=== PATIENT | male | born 1960 | race Caucasian/White ===

== ENCOUNTER 2017-12-11 14:35 | Emergency (ER) | payer MEDICARE ==
[~2017-12-11] VITALS: Ht 177.8 cm; Wt 72.6 kg
[~2017-12-11 14:35] MED LIST: ALBU3IS INH; ALBU90OI INH; ALBU90OI61 INH; ASPI81CH PO; ATOR40TA PO; ATOR80 PO; BENTYL20 MG PO; Bentyl20 MG PO; CLOP75 PO; COMBIVENT RESPIM4 GM INH; Cleocin HCl300 MG PO; DAILY MULTIPLE1 EACH PO; Flomax0.4 MG PO; GABA300 PO; HYDCHL25 PO; HYDR1TAB94 PO; Hydrocodone-Ap1 EA23 PO; INSU100I6 SC; INSUASPI SC; INSULANPEN SC; Lantus100 UNIT/1 SC; Lyrica100 MG PO; Neurontin 300300 MG PO; Norco 5-325 Ta1 EACH PO; Novolog Fl100 UNIT/1 SQ; PREG100 PO; PREG50 PO; Percocet 5-3251 EACH PO; Prozac20 MG PO; Prozac40 MG PO; Quinapril HCl20 MG PO; TAMS.4ER PO; VITAMIN D32000 UNIT PO
[2017-12-11 15:10] LABS: BASOPHILS ABSOLUTE AUTO 0.06 K/mm3 (0.00-0.23); BASOPHILS PERCENT AUTO 1 % (0-2); EOSINOPHILS ABSOLUTE AUTO 0.23 K/mm3 (0.00-0.68); EOSINOPHILS PERCENT AUTO 3 % (0-6); Hematocrit 45.2 % (37.0-53.0); Hemoglobin 15.9 g/dL (13.5-17.5); IMMATURE GRAN ABSOLUTE AUTO 0.06 K/mm3 (0.00-0.10); IMMATURE GRAN PERCENT AUTO 1 % (0-1); LYMPHOCYTES ABSOLUTE AUTO 1.91 K/mm3 (0.84-5.20); LYMPHOCYTES PERCENT AUTO 22 % (21-46); MONOCYTES ABSOLUTE AUTO 0.85 K/mm3 (0.16-1.47); MONOCYTES PERCENT AUTO 10 % (4-13); Mean Corpuscular HGB 30.8 pg (26.0-34.0); Mean Corpuscular HGB Conc 35.2 g/dL (31.5-36.5); Mean Corpuscular Volume 88 fL (80-100); Mean Platelet Volume 9.4 fL (9.1-12.4); NEUTROPHILS ABSOLUTE AUTO 5.74 K/mm3 (1.96-9.15); NEUTROPHILS PERCENT AUTO 65 % (41-73); Platelet Count 190 K/mm3 (150-400); RDW Coefficient Variation 12.9 % (11.7-14.2); RDW Standard Deviation 41.5 fL (35.1-46.3); Red Blood Cell Count 5.16 M/mm3 (4.30-5.90); White Blood Cell Count 8.85 K/mm3 (4.00-11.30)
[2017-12-11 15:30] LABS: Alanine Aminotransfer (ALT/SGP 44 U/L (12-78); Albumin, Blood 3.6 g/dL (3.4-5.0); Albumin/Globulin Ratio 0.8 (0.8-1.8); Alk Phos 169 U/L (50-136); Anion Gap 0 mmol/L (6-16); Aspartate Aminotrans (AST/SGOT 27 U/L (12-37); Bilirubin, Total 0.4 mg/dL (0.1-1.0); Blood Urea Nitrogen 13 mg/dL (8-24); Bun/Creatinine Ratio 15.3 (12.0-20.0); CO2, Blood 33 mmol/L (21-32); Calcium, Blood 9.3 mg/dL (8.5-10.1); Chloride, Blood 101 mmol/L (98-108); Creatinine, Blood 0.85 mg/dL (0.60-1.20); Globulin, Blood 4.4 g/dL (2.2-4.0); Glomerular Filtration Rate >60 (60-); Glucose, Blood 294 mg/dL (70-99); Potassium, Blood 4.4 mmol/L (3.5-5.5); Sodium, Blood 134 mmol/L (136-145); Troponin I <0.015 ng/mL (0.000-0.040)
[2017-12-11] MEDS ORDERED: ALBU90OI INH (17:09)
== END 2017-12-11 17:22 | disposition home or self-care (01) ==
LOC: ER 14:35
PROVIDERS: Emergency Medicine
DX: E11.65 Type 2 diabetes mellitus with hyperglycemia (principal); J44.1 Chronic obstructive pulmonary disease with (acute) exacerbation; E11.40 Type 2 diabetes mellitus with diabetic neuropathy, unspecified; I10 Essential (primary) hypertension; I25.10 Atherosclerotic heart disease of native coronary artery without angina pectoris; F17.210 Nicotine dependence, cigarettes, uncomplicated; Z88.0 Allergy status to penicillin; Z91.041 Radiographic dye allergy status; Z79.899 Other long term (current) drug therapy; Z79.4 Long term (current) use of insulin
CPT/HCPCS: 36415; 71046; 80053; 82947; 84484; 85025; 93005; 93010; 94640; 96360; 99284; J1815; J7030

== ENCOUNTER 2019-06-30 11:27 | Observation (INO) | payer MEDICARE ==
[~2019-06-30] VITALS: Ht 177.8 cm; Wt 71.1 kg
[~2019-06-30 11:27] MED LIST changes: +Desyrel50 MG PO; +Lamictal25 MG PO; +Novolog Fl100 UNIT/1 INJ
[2019-06-30 12:11] LABS: Source, Urine Clean Catch
[2019-06-30 12:31] LABS: Ethanol (Alcohol), Blood, Med <3 mg/dL; Troponin I <0.015 ng/mL (0.000-0.040)
[2019-06-30 12:37] LABS: Bilirubin, Urine Neg (Neg); Blood, Urine Neg (Neg); Glucose Qualitative, Urine 4+ (Neg); Ketones, Urine Neg (Neg); Leukocyte Esterase, Urine Neg (Neg); Nitrite, Urine Neg (Neg); Protein, Urine Neg (Neg); Urobilinogen, Urine NORM (Normal)
[2019-06-30 12:50] LABS: Alanine Aminotransfer (ALT/SGP 33 U/L (12-78); Albumin, Blood 3.2 g/dL (3.4-5.0); Albumin/Globulin Ratio 0.7 (0.8-1.8); Alk Phos 179 U/L (50-136); Anion Gap 5 mmol/L (6-16); Aspartate Aminotrans (AST/SGOT 28 U/L (12-37); Bilirubin, Total 0.5 mg/dL (0.1-1.0); Blood Urea Nitrogen 9 mg/dL (8-24); CO2, Blood 27 mmol/L (21-32); Calcium, Blood 8.6 mg/dL (8.5-10.1); Chloride, Blood 100 mmol/L (98-108); Globulin, Blood 4.3 g/dL (2.2-4.0); Glomerular Filtration Rate >60 (60-); Glucose, Blood 473 mg/dL (70-99); Potassium, Blood 4.8 mmol/L (3.5-5.5); Sodium, Blood 132 mmol/L (136-145); Total Protein, Blood 7.5 g/dL (6.4-8.2)
[2019-06-30 12:53] LABS: U Amphetamine Screen DETECTED; U Barbituate Screen Not Detected; U Benzodiazapine Screen Not Detected; U Buprenorphine Screen Not Detected; U Cannabinoids Screen DETECTED; U Cocaine Screen Not Detected; U Methadone Screen Not Detected; U Methamphetamine Screen DETECTED; U Opiates Screen Not Detected; U Oxycodone Screen Not Detected; U Phencyclidine Screen Not Detected; U Propoxyphene Screen Not Detected
[2019-06-30 12:54] LABS: Appearance, Urine Clear (Clear); Color, Urine Yellow (P-Yellow)
[2019-06-30 13:58] LABS: BASOPHILS ABSOLUTE AUTO 0.03 K/mm3 (0.00-0.23); BASOPHILS PERCENT AUTO 1 % (0-2); EOSINOPHILS ABSOLUTE AUTO 0.15 K/mm3 (0.00-0.68); EOSINOPHILS PERCENT AUTO 2 % (0-6); Hematocrit 37.9 % (37.0-53.0); Hemoglobin 13.3 g/dL (13.5-17.5); IMMATURE GRAN ABSOLUTE AUTO 0.03 K/mm3 (0.00-0.10); IMMATURE GRAN PERCENT AUTO 1 % (0-1); LYMPHOCYTES ABSOLUTE AUTO 1.21 K/mm3 (0.84-5.20); LYMPHOCYTES PERCENT AUTO 20 % (21-46); MONOCYTES ABSOLUTE AUTO 0.97 K/mm3 (0.16-1.47); MONOCYTES PERCENT AUTO 16 % (4-13); Mean Corpuscular HGB 31.1 pg (26.0-34.0); Mean Corpuscular HGB Conc 35.1 g/dL (31.5-36.5); Mean Corpuscular Volume 89 fL (80-100); Mean Platelet Volume 9.6 fL (9.1-12.4); NEUTROPHILS PERCENT AUTO 61 % (41-73); Platelet Count 141 K/mm3 (150-400); RDW Standard Deviation 42.1 fL (35.1-46.3); Red Blood Cell Count 4.28 M/mm3 (4.30-5.90); White Blood Cell Count 6.19 K/mm3 (4.00-11.30)
--- NOTE | 2019-06-30 18:32 | NUR ---
PT IS AOX4 AND STARTED OUT IRRITABLE, BUT HAVE BEEN ABLE TO REDIRECT. PT REPORT LEG PAIN A 7 AND WAS TREATED PER EMAR. PT HAS SETTLED DOWN MORE AND WAS ABLE TO EAT DINNER. TREATED 218 CBG PER EMAR. WILL CONTINUE TO MONITOR. PT NEEDS TO BE A ONE PERSON ASSIST HE DID NOT LOOK STEADY TRANSFERING.
--- NOTE | 2019-07-01 04:49 | NUR ---
SHIFT SUMMARY- PT. IRRITABLE AND ANGRY AT THE BEGINNING OF THE SHIFT, REFUSING VITALS WELL LAB DRAW. STATED HAD NOT BEEN GIVEN ANY INFORMATION ABOUT HIS ISOLATION STATUS AND CURRENT DX'S BY THE PHYSICIAN. CHARGE NURSE ELIEL BATRES HAD A DISCUSSION WITH PT. PT. CALM AND COOPERATIVE WITH CARE T/O THE REST OF THE NIGHT. C/O TAE LEG PAIN 04/11. NOTIFIED BLOCK PAVER JOEY MASTERS REGARDING ALTERNATIVE TO TYLENOL. RECEIVED ORDERS TO GIVE SCHEDULED MEDS ONLY, WHICH INCLUDED NEURONTIN AND CONT TYLENOL PRN. SCHEDULED MEDS GIVEN PER EMAR, PT. TOLERATED WELL. PT. SLEPT WELL DURING THE NIGHT, NO APPARENT DISTRESS NOTED. DENIED ANY FURTHER NEEDS T/O THE SHIFT. IV FLUIDS INFUSING. CALL LIGHT WITHIN REACH AND SIDE RAILS UP X2. WILL CONT TO MONITOR.
[2019-07-01 06:53] LABS: BASOPHILS ABSOLUTE AUTO 0.04 K/mm3 (0.00-0.23); BASOPHILS PERCENT AUTO 1 % (0-2); EOSINOPHILS PERCENT AUTO 5 % (0-6); Hematocrit 38.5 % (37.0-53.0); Hemoglobin 13.6 g/dL (13.5-17.5); IMMATURE GRAN ABSOLUTE AUTO 0.02 K/mm3 (0.00-0.10); IMMATURE GRAN PERCENT AUTO 0 % (0-1); LYMPHOCYTES ABSOLUTE AUTO 1.16 K/mm3 (0.84-5.20); LYMPHOCYTES PERCENT AUTO 18 % (21-46); MONOCYTES ABSOLUTE AUTO 0.79 K/mm3 (0.16-1.47); MONOCYTES PERCENT AUTO 12 % (4-13); Mean Corpuscular HGB 30.9 pg (26.0-34.0); Mean Corpuscular HGB Conc 35.3 g/dL (31.5-36.5); Mean Corpuscular Volume 88 fL (80-100); Mean Platelet Volume 9.8 fL (9.1-12.4); NEUTROPHILS ABSOLUTE AUTO 4.11 K/mm3 (1.96-9.15); NEUTROPHILS PERCENT AUTO 64 % (41-73); Platelet Count 146 K/mm3 (150-400); RDW Standard Deviation 41.7 fL (35.1-46.3); White Blood Cell Count 6.42 K/mm3 (4.00-11.30)
[2019-07-01 07:19] LABS: Anion Gap 6 mmol/L (6-16); Blood Urea Nitrogen 14 mg/dL (8-24); CO2, Blood 28 mmol/L (21-32); Calcium, Blood 8.5 mg/dL (8.5-10.1); Chloride, Blood 104 mmol/L (98-108); Creatinine, Blood 0.74 mg/dL (0.60-1.20); Glomerular Filtration Rate >60 (60-); Glucose, Blood 281 mg/dL (70-99); Potassium, Blood 4.6 mmol/L (3.5-5.5); Sodium, Blood 138 mmol/L (136-145); Troponin I <0.015 ng/mL (0.000-0.040)
--- NOTE | 2019-07-01 10:38 | NUR ---
AM CARE PT BECAME ANGRY THIS AM AND WAS DEMANDING TO HAVE IV REMOVED AND TELE REMOVED. THIS RN REMOVED TELE AND THE IV PER PT REQUEST. DR. ROMERO WAS NOTIFIED OF PT'S REQUESTS. DR. ROMERO TALKED WITH PT AND TOLD THIS RN THAT SHE WOULD BE DISCHARGING HIM TODAY.
[2019-07-01] MEDS ORDERED: INSULIN LI100 UNIT/2 SC (11:20)
[2019-07-01] MEDS ORDERED: LEVFLO500 PO (11:21)
[2019-07-01] MEDS ORDERED: Nicoderm Cq1 EAC1 TOP (11:22)
[2019-07-01] MEDS ORDERED: PANT20 PO (11:22)
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
--- NOTE | 2019-07-01 14:53 | NUR ---
DISCHARGE PT DISCHARGED TO HOME. THIS RN EXPLAINED DISCHARGE INSTRUCTIONS AND MEDICAITONS TO PT AND HE REPORTS HE UNDERSTANDS. PT'S MEDICATIONS FAXED TO [facility] PER PT REQUEST. PT TRANSFERRED TO [facility] VIA WHEEL CHAIR BY [facility]. PT RECEIVED PRESCRIPTION FOR WALKER, GLUCOSE MONITOR, AND STRIPS. BELONGINGS WITH PT.
== END 2019-07-01 13:15 | disposition home or self-care (01) ==
LOC: ER 11:27 → MEDS 11:28 → ER 15:52 → MEDS 15:52
PROVIDERS: Emergency Medicine; ADMIT Internal Medicine
DX: E11.65 Type 2 diabetes mellitus with hyperglycemia (principal); E11.42 Type 2 diabetes mellitus with diabetic polyneuropathy; M54.9 Dorsalgia, unspecified; J44.9 Chronic obstructive pulmonary disease, unspecified; G89.29 Other chronic pain; M19.90 Unspecified osteoarthritis, unspecified site; I25.10 Atherosclerotic heart disease of native coronary artery without angina pectoris; F31.9 Bipolar disorder, unspecified; F17.210 Nicotine dependence, cigarettes, uncomplicated; L02.11 Cutaneous abscess of neck; R07.9 Chest pain, unspecified; R53.1 Weakness; Z79.4 Long term (current) use of insulin; Z88.0 Allergy status to penicillin; Z59.0 Homelessness; Z79.899 Other long term (current) drug therapy; Z91.041 Radiographic dye allergy status
CPT/HCPCS: 36415; 71045; 80048; 80053; 81003; 82010; 82800; 82947; 83036; 83690; 83735; 84484; 85025; 87081; 93005; 93010; 93306; 94640; 94760; 96361; 96372; 96374-59; 96375-59; 99285-25; A9270; C9113; G0378; G0480; J1650; J1815; J2405; J3010; J7030

== ENCOUNTER 2019-07-22 10:25 | Emergency (ER) | payer MEDICARE, OTHER ==
[~2019-07-22] VITALS: Ht 177.8 cm; Wt 72.6 kg
[~2019-07-22 10:25] MED LIST changes: +INSULIN LI100 UNIT/2 SC; +LEVFLO500 PO; +Nicoderm Cq1 EAC1 TOP; +PANT20 PO
[2019-07-22 11:38] LABS: BASOPHILS ABSOLUTE AUTO 0.06 K/mm3 (0.00-0.23); BASOPHILS PERCENT AUTO 1 % (0-2); EOSINOPHILS ABSOLUTE AUTO 0.18 K/mm3 (0.00-0.68); EOSINOPHILS PERCENT AUTO 2 % (0-6); Hematocrit 44.2 % (37.0-53.0); Hemoglobin 15.4 g/dL (13.5-17.5); IMMATURE GRAN ABSOLUTE AUTO 0.07 K/mm3 (0.00-0.10); IMMATURE GRAN PERCENT AUTO 1 % (0-1); LYMPHOCYTES ABSOLUTE AUTO 1.52 K/mm3 (0.84-5.20); LYMPHOCYTES PERCENT AUTO 21 % (21-46); MONOCYTES ABSOLUTE AUTO 0.55 K/mm3 (0.16-1.47); MONOCYTES PERCENT AUTO 8 % (4-13); Mean Corpuscular HGB 31.1 pg (26.0-34.0); Mean Corpuscular HGB Conc 34.8 g/dL (31.5-36.5); Mean Corpuscular Volume 89 fL (80-100); Mean Platelet Volume 9.5 fL (9.1-12.4); NEUTROPHILS ABSOLUTE AUTO 4.97 K/mm3 (1.96-9.15); NEUTROPHILS PERCENT AUTO 68 % (41-73); Platelet Count 214 K/mm3 (150-400); RDW Coefficient Variation 13.1 % (11.7-14.2); RDW Standard Deviation 42.7 fL (35.1-46.3); Red Blood Cell Count 4.95 M/mm3 (4.30-5.90); White Blood Cell Count 7.35 K/mm3 (4.00-11.30)
[2019-07-22 11:55] LABS: Alanine Aminotransfer (ALT/SGP 35 U/L (12-78); Albumin, Blood 3.4 g/dL (3.4-5.0); Albumin/Globulin Ratio 0.7 (0.8-1.8); Alk Phos 147 U/L (50-136); Anion Gap 4 mmol/L (6-16); Aspartate Aminotrans (AST/SGOT 18 U/L (12-37); Bilirubin, Total 0.7 mg/dL (0.1-1.0); Blood Urea Nitrogen 11 mg/dL (8-24); Bun/Creatinine Ratio 18.7 (12.0-20.0); CO2, Blood 33 mmol/L (21-32); Calcium, Blood 9.1 mg/dL (8.5-10.1); Chloride, Blood 95 mmol/L (98-108); Creatinine, Blood 0.59 mg/dL (0.60-1.20); Globulin, Blood 4.8 g/dL (2.2-4.0); Glomerular Filtration Rate >60 (60-); Glucose, Blood 470 mg/dL (70-99); Sodium, Blood 132 mmol/L (136-145); Total Protein, Blood 8.2 g/dL (6.4-8.2)
[2019-07-22 13:03] LABS: Source, Urine Clean Catch
[2019-07-22 13:08] LABS: Bilirubin, Urine Neg (Neg); Blood, Urine Neg (Neg); Glucose Qualitative, Urine 4+ (Neg); Ketones, Urine Neg (Neg); Leukocyte Esterase, Urine Neg (Neg); Nitrite, Urine Neg (Neg); Protein, Urine 1+ (Neg); Urobilinogen, Urine 1+ (Normal)
[2019-07-22 13:25] LABS: Appearance, Urine Clear (Clear); Color, Urine Yellow (P-Yellow)
== END 2019-07-22 14:12 | disposition home or self-care (01) ==
LOC: ER 10:25
PROVIDERS: Physician Assistant
DX: E11.65 Type 2 diabetes mellitus with hyperglycemia (principal); E11.40 Type 2 diabetes mellitus with diabetic neuropathy, unspecified; J44.9 Chronic obstructive pulmonary disease, unspecified; I25.10 Atherosclerotic heart disease of native coronary artery without angina pectoris; F31.9 Bipolar disorder, unspecified; F17.210 Nicotine dependence, cigarettes, uncomplicated; Z91.14 Patient's other noncompliance with medication regimen; Z91.041 Radiographic dye allergy status; Z88.0 Allergy status to penicillin; Z79.899 Other long term (current) drug therapy; Z79.4 Long term (current) use of insulin; Z79.51 Long term (current) use of inhaled steroids
CPT/HCPCS: 36415; 80053; 82947; 85025; 93005; 93010; 96360; 99283-25; J1815; J7030

== ENCOUNTER 2019-08-09 10:30 | Emergency (ER) | payer MEDICARE, OTHER ==
[~2019-08-09] VITALS: Ht 177.8 cm; Wt 72.1 kg
[2019-08-09 11:44] LABS: BASOPHILS ABSOLUTE AUTO 0.06 K/mm3 (0.00-0.23); BASOPHILS PERCENT AUTO 1 % (0-2); EOSINOPHILS ABSOLUTE AUTO 0.18 K/mm3 (0.00-0.68); EOSINOPHILS PERCENT AUTO 2 % (0-6); Hematocrit 43.3 % (37.0-53.0); Hemoglobin 15.3 g/dL (13.5-17.5); IMMATURE GRAN ABSOLUTE AUTO 0.07 K/mm3 (0.00-0.10); IMMATURE GRAN PERCENT AUTO 1 % (0-1); LYMPHOCYTES ABSOLUTE AUTO 1.45 K/mm3 (0.84-5.20); LYMPHOCYTES PERCENT AUTO 12 % (21-46); MONOCYTES ABSOLUTE AUTO 0.81 K/mm3 (0.16-1.47); MONOCYTES PERCENT AUTO 7 % (4-13); Mean Corpuscular HGB 29.9 pg (26.0-34.0); Mean Corpuscular HGB Conc 35.3 g/dL (31.5-36.5); Mean Corpuscular Volume 85 fL (80-100); Mean Platelet Volume 9.9 fL (9.1-12.4); NEUTROPHILS ABSOLUTE AUTO 9.67 K/mm3 (1.96-9.15); NEUTROPHILS PERCENT AUTO 79 % (41-73); Platelet Count 229 K/mm3 (150-400); RDW Coefficient Variation 12.1 % (11.7-14.2); RDW Standard Deviation 37.2 fL (35.1-46.3); Red Blood Cell Count 5.11 M/mm3 (4.30-5.90); White Blood Cell Count 12.24 K/mm3 (4.00-11.30)
[2019-08-09 11:57] LABS: Alanine Aminotransfer (ALT/SGP 36 U/L (12-78); Albumin/Globulin Ratio 0.6 (0.8-1.8); Alk Phos 101 U/L (50-136); Anion Gap 10 mmol/L (6-16); Aspartate Aminotrans (AST/SGOT 24 U/L (12-37); Blood Urea Nitrogen 15 mg/dL (8-24); Bun/Creatinine Ratio 32.6 (12.0-20.0); CO2, Blood 26 mmol/L (21-32); Calcium, Blood 9.2 mg/dL (8.5-10.1); Chloride, Blood 95 mmol/L (98-108); Creatinine, Blood 0.46 mg/dL (0.60-1.20); Globulin, Blood 5.1 g/dL (2.2-4.0); Glomerular Filtration Rate >60 (60-); Glucose, Blood 311 mg/dL (70-99); Potassium, Blood 4.3 mmol/L (3.5-5.5); Sodium, Blood 131 mmol/L (136-145); Total Protein, Blood 8.1 g/dL (6.4-8.2)
[2019-08-09 14:25] LABS: Source, Urine Clean Catch
[2019-08-09 14:30] LABS: Bilirubin, Urine Neg (Neg); Blood, Urine 1+ (Neg); Glucose Qualitative, Urine 4+ (Neg); Ketones, Urine 4+ (Neg); Leukocyte Esterase, Urine 1+ (Neg); Nitrite, Urine Neg (Neg); Protein, Urine 2+ (Neg); Urobilinogen, Urine 2+ (Normal)
[2019-08-09] MEDS ORDERED: Norco 10-325 T1 EACH PO (14:38)
[2019-08-09] MEDS ORDERED: Cleocin HCl300 MG PO (14:38)
[2019-08-09 14:39] LABS: Appearance, Urine Hazy (Clear); Bacteria Many /hpf; Color, Urine Yellow (P-Yellow); Mucus Light (0-Heavy); Squamous Epithelial Cells Rare /hpf (Few)
[2019-08-09 14:41] LABS: U Amphetamine Screen DETECTED; U Barbituate Screen Not Detected; U Benzodiazapine Screen Not Detected; U Buprenorphine Screen Not Detected; U Cannabinoids Screen DETECTED; U Cocaine Screen Not Detected; U Methadone Screen Not Detected; U Methamphetamine Screen DETECTED; U Opiates Screen Not Detected; U Oxycodone Screen Not Detected; U Phencyclidine Screen Not Detected; U Propoxyphene Screen Not Detected
== END 2019-08-09 14:53 | disposition home or self-care (01) ==
LOC: ER 10:30
PROVIDERS: Emergency Medicine
DX: L02.415 Cutaneous abscess of right lower limb (principal); E11.40 Type 2 diabetes mellitus with diabetic neuropathy, unspecified; F15.10 Other stimulant abuse, uncomplicated; I10 Essential (primary) hypertension; F17.210 Nicotine dependence, cigarettes, uncomplicated; Z59.0 Homelessness; Z91.041 Radiographic dye allergy status; Z88.0 Allergy status to penicillin
CPT/HCPCS: 10060; 36415; 71045; 80053; 81001; 83036; 83605; 85025; 87040; 87070; 87075; 87077; 87086; 87147; 87186; 87205; 96361-59; 96365-59; 96375-59; 96376-59; 99283-25; J1885; J2405; J3010; J7030

== ENCOUNTER 2019-08-13 13:45 | Inpatient (IN) | payer MEDICARE, OTHER ==
[~2019-08-13] VITALS: Ht 177.8 cm; Wt 72.1 kg
[~2019-08-13 13:45] MED LIST changes: +Norco 10-325 T1 EACH PO
[2019-08-13 14:22] LABS: BASOPHILS ABSOLUTE AUTO 0.06 K/mm3 (0.00-0.23); BASOPHILS PERCENT AUTO 1 % (0-2); EOSINOPHILS PERCENT AUTO 3 % (0-6); Hematocrit 43.3 % (37.0-53.0); Hemoglobin 14.9 g/dL (13.5-17.5); IMMATURE GRAN ABSOLUTE AUTO 0.12 K/mm3 (0.00-0.10); IMMATURE GRAN PERCENT AUTO 1 % (0-1); LYMPHOCYTES ABSOLUTE AUTO 1.16 K/mm3 (0.84-5.20); LYMPHOCYTES PERCENT AUTO 13 % (21-46); MONOCYTES ABSOLUTE AUTO 0.81 K/mm3 (0.16-1.47); MONOCYTES PERCENT AUTO 9 % (4-13); Mean Corpuscular HGB 30.3 pg (26.0-34.0); Mean Corpuscular HGB Conc 34.4 g/dL (31.5-36.5); Mean Platelet Volume 9.6 fL (9.1-12.4); NEUTROPHILS ABSOLUTE AUTO 6.61 K/mm3 (1.96-9.15); NEUTROPHILS PERCENT AUTO 73 % (41-73); Platelet Count 223 K/mm3 (150-400); RDW Coefficient Variation 12.7 % (11.7-14.2); RDW Standard Deviation 41.2 fL (35.1-46.3); Red Blood Cell Count 4.92 M/mm3 (4.30-5.90); White Blood Cell Count 9.06 K/mm3 (4.00-11.30)
[2019-08-13 14:26] LABS: Mean Corpuscular Volume 88 fL (80-100)
[2019-08-13 14:32] LABS: Alanine Aminotransfer (ALT/SGP 38 U/L (12-78); Albumin, Blood 3.1 g/dL (3.4-5.0); Albumin/Globulin Ratio 0.7 (0.8-1.8); Alk Phos 132 U/L (50-136); Anion Gap 6 mmol/L (6-16); Aspartate Aminotrans (AST/SGOT 24 U/L (12-37); Bilirubin, Total 0.4 mg/dL (0.1-1.0); Blood Urea Nitrogen 10 mg/dL (8-24); Bun/Creatinine Ratio 20.2 (12.0-20.0); CO2, Blood 28 mmol/L (21-32); Calcium, Blood 9.1 mg/dL (8.5-10.1); Chloride, Blood 98 mmol/L (98-108); Creatinine, Blood 0.49 mg/dL (0.60-1.20); Globulin, Blood 4.7 g/dL (2.2-4.0); Glomerular Filtration Rate >60 (60-); Glucose, Blood 555 mg/dL (70-99); Potassium, Blood 4.2 mmol/L (3.5-5.5); Sodium, Blood 132 mmol/L (136-145); Total Protein, Blood 7.8 g/dL (6.4-8.2)
--- NOTE | 2019-08-13 18:38 | NUR ---
ADMIT NOTE PT TRANSFERED FROM ER BY SHIMA. PT DEMANDED SHOWER PRIOR TO FLUIDS STARTED. DR UPDATED ABOUT LACTIC ACID INCREASED, NOT CHANGE IN ORDERS AT THIS TIME. INSTRUCTED PT TO CALL FOR ASSISTANCE WHEN UP. NO COMPLAINTS AT THIS TIME.
--- NOTE | 2019-08-13 18:58 | NUR ---
HIGH BLOOD GLUCOSE PT'S BLOOD SUGAR IS OVER 400. THIS RN TALKED WITH DR. PARSONS AND NOTIFIED HIM THAT PT WILL RECEIVE 12 UNITS OF INSULIN DUE TO NOT RECEIVING INSULIN IN ED AND WILL ALSO RECEIVE 10 UNITS OF LANTUS. NO NEW ORDERS AT THIS TIME. THIS RN FAXED A PHARMACY REQUEST FOR THE INSULIN PENS. WILL CONTINUE TO MONITOR. CALL LIGHT IN REACH.
--- NOTE | 2019-08-14 06:29 | NUR ---
SHIFT SUMMARY AOX4. VSS. CBG @SHIFT CHANGE WAS 423, DAY NURSE NOTIFIED DR PARSONS. CBG @HS 288, NO COVERAGE PROVIDED SINCE NO ORDERS FOR COVERAGE & PT RECIEVED COVERAGE @SHIFT CHANGE FROM DAY SHIFT RN. I&D WOUND ON RT UPPER THIGH IS WARM TO TOUCH, ANGRY RED, SWOLLEN, PAINFUL, FOUL ODOR & HAS SMALL AMOUNT RED/SEROSANGUINOUS DRAINAGE. DRESSING WAS CHANGE & PIC TAKEN 08/13/19. REPORTS PAIN 5-8/10 IN RT THIGH, MEDICATED 2X W/OXYCODONE. DENIES DYSPNEA OR N/V. LUNGS SOUND WHEEZY T/O, ON RA WITH E/U RESPIRATIONS. TELE IN PLACE, RUNNING @NSR W/HR 87. LR RUNNING 125ML/HR. 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 PT HAS SCABS/REDDENNED AREA ON BACK OF NECK & BILAT WRISTS, STATES HE THOUGHT "THEY WERE SPIDER BITES" BUT WAS TOLD THEY ARE R/T HIS DM. CALL LIGHT IN REACH & I WILL CONTINUE TO MONITOR UNTIL DAY SHIFT RN ASSUMES CARE.
--- NOTE | 2019-08-14 16:30 | NUR ---
SHIFT SUMMARY L WOUND CLEANED & REDRESSED THIS SHIFT. PT MEDICATED FOR PAIN 1 TIME THIS SHIFT SO FAR. DENIES N/V. PT IND IN ROOM. DENIES NEEDS AT THIS TIME. NO OTHER CHANGES IN ASSESSMENT AT THIS TIME. VSS. WILL CONTINUE TO MONITOR UNTIL TURNOVER IS COMPLETE.
--- NOTE | 2019-08-15 04:01 | NUR ---
SHIFT SUMMARY PATIENT HAD NO ACUTE CHANGES OBSERVED. AXOX 4 AND INDEPENDENT IN THE ROOM. VSS/AFEBRILE. DENIES PAIN, SOB, AND N/V. PIV REMAINS INTACT. PARK ACTIVITIES COORDINATOR REPORTS NSR 79. WOUND DRESSING CHANGED ON DAY SHIFT. IV ABX INFUSED. COOPERATIVE WITH CARE. CALL LIGHT IN REACH. BED IN LOWEST POSITION. WILL CONTINUE TO MONITOR UNTIL DAY SHIFT NURSE ASSUMES CARE.
--- NOTE | 2019-08-15 05:26 | NUR ---
OXYCODONE 5 MG GIVEN FOR R UPPER THIGH PAIN PER EMAR. SCHEDULE VANCO INFUSING. CALL LIGHT IN REACH.
[2019-08-15 05:33] LABS: Vancomycin, Trough 7.8 ug/mL (5.0-10.0)
--- NOTE | 2019-08-15 18:33 | NUR ---
HIFT SUMMARY PATIENT IS ALERT AND ORIENTED INDEPENDENT. HE IS EASILY AGITATED AND CURRENTLY IS SETTLED IN HIS ROOM. HE WAS UNHAPPY WITH HIS DINNER. HE WOULD LIKE A DIETITIAN CONSULT. HE DOES NOT LIKE HIS CURRENT DIET, A MECHANICAL SOFT. PATIENT IS VERY CONCERNED ABOUT THE RASH ON THE BACK OF HIS NECK BLEEDING BUT WILL NOT STOP SCRATCHING IT.
--- NOTE | 2019-08-15 22:40 | NUR ---
PATIENT AGITATED BEFORE ASSESSMENT REPORTING HE WANTS TO SLEEP AND IS INTERUPTED. PATIENT EDUCATED ON WHY COUNTERINTELLIGENCE/HUMINT SPECIALIST'S, RN, AND STAFF COME INTO HIS ROOM FOR MEDICAL INTERVENTIONS, ASSESSMENTS, AND DAILY ADL'S. HE REPORTS HE WILL GO BACK TO SLEEP UNTIL MIDNIGHT ABXS. CONTACT PRECAUTIONS. WILL CONTINUE TO MONITOR.
--- NOTE | 2019-08-16 03:41 | NUR ---
SHIFT SUMMARY PATIENT HAD NO ACUTE CHANGES OBSERVED. WAS AGITATED AT SHIFT CHANGE AND COOPERATIVE OF CARE BY MIDNIGHT. AXOX 4 AND INDEPENDENT. PIV INTACT. IV ABX INFUSED. CBG 299. BUILDING SERVICES SUPERVISOR REPORTS NSR 80. VSS/AFEBRILE. REPORTED RIGHT LEG THIGH PAIN AND OXYCODONE 5 MG GIVEN PER EMAR. PATIENT ABLE TO SLEEP. CALL LIGHT IN REACH. BED IN LOWEST POSITION. WILL CONTINUE TO MONITOR UNTIL DAY SHIFT NURSE ASSUMES CARE.
[2019-08-16 07:16] LABS: Vancomycin, Trough 11.3 ug/mL (5.0-10.0)
[2019-08-16 08:39] LABS: BASOPHILS ABSOLUTE AUTO 0.06 K/mm3 (0.00-0.23); BASOPHILS PERCENT AUTO 1 % (0-2); EOSINOPHILS ABSOLUTE AUTO 0.26 K/mm3 (0.00-0.68); EOSINOPHILS PERCENT AUTO 4 % (0-6); Hematocrit 45.8 % (37.0-53.0); Hemoglobin 15.8 g/dL (13.5-17.5); IMMATURE GRAN ABSOLUTE AUTO 0.07 K/mm3 (0.00-0.10); IMMATURE GRAN PERCENT AUTO 1 % (0-1); LYMPHOCYTES ABSOLUTE AUTO 1.28 K/mm3 (0.84-5.20); LYMPHOCYTES PERCENT AUTO 21 % (21-46); MONOCYTES ABSOLUTE AUTO 0.69 K/mm3 (0.16-1.47); MONOCYTES PERCENT AUTO 11 % (4-13); Mean Corpuscular HGB 30.4 pg (26.0-34.0); Mean Corpuscular HGB Conc 34.5 g/dL (31.5-36.5); Mean Corpuscular Volume 88 fL (80-100); Mean Platelet Volume 9.2 fL (9.1-12.4); NEUTROPHILS ABSOLUTE AUTO 3.88 K/mm3 (1.96-9.15); NEUTROPHILS PERCENT AUTO 62 % (41-73); Platelet Count 163 K/mm3 (150-400); RDW Coefficient Variation 12.6 % (11.7-14.2); RDW Standard Deviation 40.7 fL (35.1-46.3); Red Blood Cell Count 5.19 M/mm3 (4.30-5.90); White Blood Cell Count 6.24 K/mm3 (4.00-11.30)
[2019-08-16 08:58] LABS: Anion Gap 4 mmol/L (6-16); Blood Urea Nitrogen 12 mg/dL (8-24); Bun/Creatinine Ratio 23.5 (12.0-20.0); CO2, Blood 29 mmol/L (21-32); Chloride, Blood 97 mmol/L (98-108); Creatinine, Blood 0.51 mg/dL (0.60-1.20); Glomerular Filtration Rate >60 (60-); Glucose, Blood 249 mg/dL (70-99); Phosphorus, Blood 3.5 mg/dL (2.5-4.9); Potassium, Blood 4.1 mmol/L (3.5-5.5); Sodium, Blood 130 mmol/L (136-145)
--- NOTE | 2019-08-16 12:17 | NUR ---
ALERT. ORIENTED. HAS CONSULT FOR PODIATRY AND ORTHO PENDING. INDEPENDENT IN ROOM. UNLABORED RESPIRATIONS.C/O BURNING SENSATION TO RT HIP WHICH IS NEW AND STARTED LAST NIGHT. PAIN MEDS HAVE HELPED. OINTMENT AND LONG BANDAGE TO BACK OF NECK HAS HELPED TO DECREASE ITCHING. BED IN LOW POSITION. ABLE TO MAKE NEEDS KNOWN. WCTM.
--- NOTE | 2019-08-16 16:37 | NUR ---
PATIENT C/O LUQ PAIN JUST BELOW RIBS, WHICH HE SAID HE ALSO HAD YESTERDAY AND FELT BETTER AFTER GOING TO BATHROOM. STS HAS HAD SMALL HARD STOOLS. ADVISED. MEDS ORDERED.
--- NOTE | 2019-08-16 17:42 | NUR ---
NOTIFIED THAT PATIENT HAS BURNING PAIN RT THIGH. PAIN MEDS HELP FOR ABOUT 3 HOURS. MY FIRST DAY HAVING PATIENT, BUT ABSCESS LOOKS WORSE THAN ADMIT PICS. MD TO CHANGE MEDS.
--- NOTE | 2019-08-16 18:38 | NUR ---
ALERT. ORIENTED. WALKED IN HALLWAY W/WALKER, STEADY GAIT.AWARE NPO AFTER MIDNITE FOR PROCEDURE EARLY AFTERNOON TOMORROW. PAIN MEDS ADJUSTED. EXCELLENT APPETITE. UNLABORED RESPIRATIONS. ABLE TO MAKE NEEDS KNOWN.IV PATENT. WCTM
--- NOTE | 2019-08-16 19:54 | NUR ---
PATIENT AGITATED AT SHIFT CHANGE DEMANDING TO HAVE FOOD. PATIENT REMINDED HIS BLOOD GLUCOSE READING WILL BE TAKEN NEEDED FIRST. LAST CBG 342. PATIENT WNET FROM HIS DOOR WAY BACK INTO ROOM. WILL CONTINUE TO MONITOR.
--- NOTE | 2019-08-16 21:39 | NUR ---
PATIENT BACK TO COOPERATIVE WITH CARE. CALL LIGHT IN REACH.
--- NOTE | 2019-08-17 03:38 | NUR ---
ASSUMED CARE OF PATIENT. PT. AWAKE AND WATCHING TV IN BED. NO APPARENT DISTRESS NOTED. DENIES ANY NEEDS AT THIS TIME. CALL LIGHT WITHIN REACH, SIDE RAILS UP X2, AND BED IN LOW POSITION. WILL CONT TO MONITOR.
[2019-08-17 05:57] LABS: Anion Gap 4 mmol/L (6-16); Blood Urea Nitrogen 14 mg/dL (8-24); Bun/Creatinine Ratio 25.7 (12.0-20.0); CO2, Blood 31 mmol/L (21-32); Calcium, Blood 8.4 mg/dL (8.5-10.1); Chloride, Blood 99 mmol/L (98-108); Creatinine, Blood 0.55 mg/dL (0.60-1.20); Glomerular Filtration Rate >60 (60-); Glucose, Blood 313 mg/dL (70-99); Potassium, Blood 4.4 mmol/L (3.5-5.5); Sodium, Blood 134 mmol/L (136-145)
--- NOTE | 2019-08-17 13:16 | NUR ---
PT TRANSPORTED TO [facility]. AGREES WITH PLANNED SURGERY.
--- NOTE | 2019-08-17 13:23 | NUR ---
LUNG SOUNDS CLEAR.
--- NOTE | 2019-08-17 13:50 | NUR ---
PT C/O FEELING EXTREMELY HOT AND NAUSEA. PT VOMITING, SCANT AMOUT OF VOMIT PRODUCED. DR. SANFORD AWARE, MEDS ORDERED.
--- NOTE | 2019-08-17 14:15 | NUR ---
PT STATES HE IS FEELING BETTER.
--- NOTE | 2019-08-17 14:21 | NUR ---
08/17/19 1421 Cam Gaspar ON SCHEDULED ANTIBIOTICS
--- NOTE | 2019-08-17 19:46 | NUR ---
SHIFT SUMMARY PT UPSET @ START OF SHIFT OF NPO STATUS WHEN SURG WAS NOT UNITIL AFTERNOON, DR RUSSO SAW PT & GAVE V/O FOR CLEARS UNTIL 10AM, PT C/O UNCONTROLLED PAIN T/O SHIFT, PT TO PROCEDURE @ 1300, BACK TO ROOM @ 1630 REQ FOOD. MED FOR PAIN, PT FELL ASLEEP AND CORD ON WOUND VAC BECAME KINKED AND BLOOD COLLECTED UNDER DRESSING, STRAIGHTENED CORD & SEMICONDUCTOR WAFERS ETCHER STRIPPER ASSESSED, PT AGAIN FELL ASLEEP AND CORD BECAME KINKED AGAIN, STRAIGHTENED TUBING AGAIN & TAPED TO PTS LEG, SPEECH LANG PATH THERAPIST ASSESSED. DURING CHANGE OF SHIFT DRESSING BEGAN TO LEAK AND DR RECINOS WAS CALLED @ 1930 AND GAVE OK TO REMOVE VAC & REPLACE DRESSING. RT ENTERED ROOM AND PT WAS DEMANDING HER TO CALL RAPID RESPONSE WHILE SUPPLIES WERE BEING GATHERED TO CHANGE DRESSING. REPORT GIVEN TO NOC RN & DRESSING CHANGE IS BEING COMPLETED AT THIS TIME.
--- NOTE | 2019-08-17 21:06 | NUR ---
PT with homelessness and MRSA infection rt thigh wound had I & D earlier today and had wound vac placed after incision and drainage rt thigh wound. At shift change wound vac dressing leaking and day RN Ginger called DR Pineda who had placed wound vac and he OKS removal and replacement of wound vac or pressure dressing. 2 RNS changed wound vac and did get suction and some red rserosang drainage but after about 1/2 hour wound vac alarm malfunction. PT had reported 700 ml blood loss in OR and more with dressing change. Will remove wound vac and replace with pressure dressing as ordered by DR Pineda. Alon RN assisted with wound care. Post op issues with wound vac had occured in PACU per PT and day RN had assessed several times and had several others assess. Will continue as planned and call MD again if further orders needed
--- NOTE | 2019-08-17 22:52 | NUR ---
PREVIOUS WOUND VAC DRESSING HAD BLED THROUGH AND WOUND VAC UNABLE TO SUCTION PROPERLY. DRESSING AND FOAM REPLACED. WOUND VAC TURNED ON AND WAS ABLE TO SUCTION PROPERLY FOR APPROX 5 MINUTES. AT THAT TIME WOUND VAC BECAME CLOGGED AGAIN AN UNABLE TO SUCTION. BLOOD WAS POOLING AND BUILDING UP UNDER/AROUND THE WOUND VAC DRESSING. IT WAS THEN REPLACED WITH A WET TO DRY PRESSURE DRESSING.
--- NOTE | 2019-08-17 22:57 | NUR ---
DR Preethi Caceres called exhange on continued bleeding that soaked dressing within 1 hour of placing. Blood pooled under PT and he describes feeling weak. He is not up out of bed. PT describes feeling pulsation with heartbeat. Had I & D today and continues to lose blood out rt thigh wound. With dressing changes continues to bleed steady stream and has required removal of wound vac that was placed in OR and removal of replacement wound vac with continued bleeding used approx 8 packs of sponges during that dressing change then more bleeding during subsequent removal and [address] Await [address] Caceres return call. traveling missionary aware and procedure and traveling missionary have assisted with postop bleeding.
--- NOTE | 2019-08-18 01:28 | NUR ---
DR Marx hospitalist called to report PT continuing bleeding saturationg dressing in less than [address] ordered CBC stat and do coagulation studies. PT has stable vital signs good output and oral intake. PT has hx of HEPC and said he has liver problems with black spot on liver per PT report. Called lab to get stat CBC and other AM labs. DR Marx to recieve lab results. Reinforced RT thigh dressingand applied pressure wrap.
--- NOTE | 2019-08-18 01:30 | NUR ---
0115 DRESSING TO R UPPER THIGH HAD BLED THROUGH APPROX 200ML BLOOD. REINFORCED DRESSING WITH ADDITOINAL ABSORBANT GAUZE AND USED MICHAEL WRAPS TO APPLY PRESSURE FROM JUST ABOVE R KNEE TO WAIST. BLEEDING APPEARS TO BE CONTROLLED. BOTH PRIMARY NURSE AND CHARGE NURSE HAVE BEEN INFORMED OF THIS.
[2019-08-18 01:46] LABS: BASOPHILS ABSOLUTE AUTO 0.06 K/mm3 (0.00-0.23); BASOPHILS PERCENT AUTO 1 % (0-2); EOSINOPHILS ABSOLUTE AUTO 0.33 K/mm3 (0.00-0.68); EOSINOPHILS PERCENT AUTO 4 % (0-6); Hematocrit 35.6 % (37.0-53.0); Hemoglobin 12.2 g/dL (13.5-17.5); IMMATURE GRAN PERCENT AUTO 1 % (0-1); LYMPHOCYTES PERCENT AUTO 22 % (21-46); MONOCYTES ABSOLUTE AUTO 0.66 K/mm3 (0.16-1.47); MONOCYTES PERCENT AUTO 8 % (4-13); Mean Corpuscular HGB 30.7 pg (26.0-34.0); Mean Corpuscular HGB Conc 34.3 g/dL (31.5-36.5); Mean Corpuscular Volume 90 fL (80-100); Mean Platelet Volume 9.5 fL (9.1-12.4); NEUTROPHILS ABSOLUTE AUTO 5.21 K/mm3 (1.96-9.15); NEUTROPHILS PERCENT AUTO 64 % (41-73); Platelet Count 169 K/mm3 (150-400); RDW Coefficient Variation 12.9 % (11.7-14.2); RDW Standard Deviation 42.5 fL (35.1-46.3); Red Blood Cell Count 3.97 M/mm3 (4.30-5.90); White Blood Cell Count 8.16 K/mm3 (4.00-11.30)
[2019-08-18 02:05] LABS: International Normalized Ratio 1.06; Prothrombin Time Results 11.2 Sec (9.7-11.5)
--- NOTE | 2019-08-18 03:31 | NUR ---
DR Arnold called and updated on lab values , continued oozing of blood despite pressure dressing. coagulation studies unremarkable. H & H and vitals slightly lower. Will recheck CBC at 0800. PT has been on bedrest due to I & D RT thigh.
--- NOTE | 2019-08-18 06:03 | NUR ---
DR PEREYRA up to room to see PT due to continued bleeding from I & D site rt thigh. PT continues to ooze blood decpite pressure to area from yonis wrap. Consistantly has fresh drainage from RT thigh despite bedrest. PT did get up at bedside and go to bathroom. Said he wants to go for a walk. DR pereyra says PT not to leave room due to active bleeding. Current MRSA and Hep C, Continues in contact isolation. PT very needy time spent with PT yenyen as soon as staff leaves room he calls for something else. Medicated for pain multiple times with helpful effect.
--- NOTE | 2019-08-18 07:34 | NUR ---
PT verbally abusive attention seeking. Abusive to primary RN threatening. Makes accusitory statements. Medicated for pain, had Hospitalist See PT due to continued RT thigh postop bleeding. Demanding and demeaning attitude. Hours spent in cares with this PT multiple staff members. At least 4 hours 1 to 1 or 2 to 1. AM CBC pending. PT up in bedside chair for several hours this AM after he had a BM in bathroom.
[2019-08-18 08:32] LABS: BASOPHILS ABSOLUTE AUTO 0.06 K/mm3 (0.00-0.23); BASOPHILS PERCENT AUTO 1 % (0-2); EOSINOPHILS ABSOLUTE AUTO 0.33 K/mm3 (0.00-0.68); EOSINOPHILS PERCENT AUTO 4 % (0-6); Hematocrit 35.5 % (37.0-53.0); Hemoglobin 12.2 g/dL (13.5-17.5); IMMATURE GRAN PERCENT AUTO 1 % (0-1); LYMPHOCYTES ABSOLUTE AUTO 1.33 K/mm3 (0.84-5.20); LYMPHOCYTES PERCENT AUTO 15 % (21-46); MONOCYTES ABSOLUTE AUTO 0.71 K/mm3 (0.16-1.47); MONOCYTES PERCENT AUTO 8 % (4-13); Mean Corpuscular HGB 30.7 pg (26.0-34.0); Mean Corpuscular HGB Conc 34.4 g/dL (31.5-36.5); Mean Corpuscular Volume 89 fL (80-100); NEUTROPHILS ABSOLUTE AUTO 6.17 K/mm3 (1.96-9.15); NEUTROPHILS PERCENT AUTO 71 % (41-73); Platelet Count 156 K/mm3 (150-400); RDW Coefficient Variation 12.9 % (11.7-14.2); RDW Standard Deviation 42.2 fL (35.1-46.3); Red Blood Cell Count 3.98 M/mm3 (4.30-5.90)
[2019-08-18 09:00] LABS: Albumin, Blood 2.6 g/dL (3.4-5.0); Anion Gap 5 mmol/L (6-16); Blood Urea Nitrogen 18 mg/dL (8-24); CO2, Blood 28 mmol/L (21-32); Calcium, Blood 8.6 mg/dL (8.5-10.1); Chloride, Blood 99 mmol/L (98-108); Creatinine, Blood 0.56 mg/dL (0.60-1.20); Glomerular Filtration Rate >60 (60-); Glucose, Blood 321 mg/dL (70-99); Phosphorus, Blood 3.9 mg/dL (2.5-4.9); Potassium, Blood 4.3 mmol/L (3.5-5.5); Sodium, Blood 132 mmol/L (136-145)
--- NOTE | 2019-08-18 17:31 | NUR ---
HE HAS BEEN COOPERATIVE AND RESPECTFUL TO STAFF TODAY. [facility] INTERVIEWED HIM THIS AFTERNOON. ID CONSULT CALLED. I REINFORCED HIS RT HIP DRESSING EARLY THIS AM WITH 1 ABD AND MORE MICHAEL. THIS EVENING THAT ABD AND 2 NEAR IT WERE SATURATED WITH BLOOD. THEY WERE REMOVED BUT NOT DOWN TO THE WOUND.1 OR 2 ABD'S LEFT DIRECTLY ON SKIN. I PUT 1 MORE ABD A KERLIX AND A NEW MICHAEL WRAP ON. HE THEN PUT ON DISPOSABLE UNDERWEAR AND PJ BOTTOMS. HE MOVES AROUND IN THE ROOM A LITTLE MORE THAN I'D LIKE HIM TO BUT HE GETS NERVOUS. HE HAS BEEN MEDICATED WITH 1 MG OF IV DILAUDID TODAY AND 10 MG OF OXYCODONE TODAY, BOTH BY HIS REQUEST. 1ST 2 CBG'S IN THE 300'S. THE DINNER CBG IN THE 200'S. CONTACT ISOLATION CONTINUES FOR MRSA IN THE WOUND.
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
[2019-08-19 07:39] LABS: Vancomycin, Trough 15.3 ug/mL (5.0-10.0)
--- NOTE | 2019-08-19 17:12 | NUR ---
SHIFT SUMMARY PT AXO X4 THOUGH HAS MOMENTS OF EMOTIONAL IRRITABILITY AND GRANDIOSITY. NEW IV PLACED THIS SHIFT. CHARGE NURSE IN AT 1000 TO START A NEW IV, PT IRRITABLE AND REFUSED IV START AT THAT TIME. THIS NURSE IN AT 1130, PT AGREED AND SPECIFIED EXACTLY THE PLACE HE WANTED THE IV STARTED. VANCO INFUSED AT 1130, PHARMACY AWARE AND TIMING UPDATED. PT AMBULATED AROUND THE UNIT X3-4, THOUGH ON THE LAST LAP, PT BEGAN FEELING "DIZZY." NURSE FREDDY WAYNE, RN TOOK PT BACK TO ROOM, S. DR HALE NOTIFIED AND IN ROOM AT 1710. CBG ORDERED AND BEING DRAWN AT THIS TIME. TELE ORDERED, AWAITING ARRIVAL. PT RESTING IN BED AT THIS TIME. PT DENIES PAIN. BED IN LOW POSITION, CALL LIGHT WITHIN REACH.
[2019-08-19 17:33] LABS: BASOPHILS ABSOLUTE AUTO 0.04 K/mm3 (0.00-0.23); BASOPHILS PERCENT AUTO 1 % (0-2); EOSINOPHILS ABSOLUTE AUTO 0.25 K/mm3 (0.00-0.68); EOSINOPHILS PERCENT AUTO 4 % (0-6); Hematocrit 30.6 % (37.0-53.0); Hemoglobin 10.4 g/dL (13.5-17.5); IMMATURE GRAN PERCENT AUTO 2 % (0-1); LYMPHOCYTES ABSOLUTE AUTO 1.59 K/mm3 (0.84-5.20); LYMPHOCYTES PERCENT AUTO 24 % (21-46); MONOCYTES ABSOLUTE AUTO 0.72 K/mm3 (0.16-1.47); MONOCYTES PERCENT AUTO 11 % (4-13); Mean Corpuscular HGB 30.1 pg (26.0-34.0); Mean Corpuscular Volume 88 fL (80-100); Mean Platelet Volume 9.7 fL (9.1-12.4); NEUTROPHILS PERCENT AUTO 60 % (41-73); Platelet Count 144 K/mm3 (150-400); RDW Standard Deviation 41.8 fL (35.1-46.3); Red Blood Cell Count 3.46 M/mm3 (4.30-5.90)
--- NOTE | 2019-08-19 18:02 | NUR ---
THIS NURSE CALLED ANSWERING SERVICE TO INQUIRE IF DO RUSSO WAS PLANNING TO COME ASSESS WOUND, BLEEDING/ DRESSING CHANGE. ANSWERING SERVICE STATED DR DOTSON IS USED CAR SALESPERSON. DR DOTSON CALLED THIS NURSE BACK AT 1800. PATIENT SITUATION AND HGB DROP DISCUSSED WITH HER. SHE STATED THAT SHE WILL CONTACT DR RUSSO FOR FURTHER INSTRUCTIONS. DR RUSSO CALLED AT 1805 WHO STATED THAT HE WANTS WOUND TO BE PACKED AND DRESSED.
--- NOTE | 2019-08-20 03:35 | NUR ---
PT PER JACQUELINE--SANDBLAST OR SHOTBLAST EQUIPMENT TENDER HAD 3 SECOND PAUSE WHILE IN ATRIAL FLUTTER. DR IAN MCGOWAN.
[2019-08-20 05:16] LABS: BASOPHILS ABSOLUTE AUTO 0.04 K/mm3 (0.00-0.23); BASOPHILS PERCENT AUTO 1 % (0-2); EOSINOPHILS ABSOLUTE AUTO 0.19 K/mm3 (0.00-0.68); EOSINOPHILS PERCENT AUTO 3 % (0-6); Hematocrit 30.1 % (37.0-53.0); Hemoglobin 10.2 g/dL (13.5-17.5); IMMATURE GRAN ABSOLUTE AUTO 0.09 K/mm3 (0.00-0.10); IMMATURE GRAN PERCENT AUTO 2 % (0-1); LYMPHOCYTES ABSOLUTE AUTO 1.31 K/mm3 (0.84-5.20); LYMPHOCYTES PERCENT AUTO 24 % (21-46); MONOCYTES PERCENT AUTO 11 % (4-13); Mean Corpuscular HGB 30.3 pg (26.0-34.0); Mean Corpuscular HGB Conc 33.9 g/dL (31.5-36.5); Mean Corpuscular Volume 89 fL (80-100); Mean Platelet Volume 9.9 fL (9.1-12.4); NEUTROPHILS ABSOLUTE AUTO 3.29 K/mm3 (1.96-9.15); NEUTROPHILS PERCENT AUTO 60 % (41-73); Platelet Count 140 K/mm3 (150-400); RDW Standard Deviation 42.5 fL (35.1-46.3); Red Blood Cell Count 3.37 M/mm3 (4.30-5.90); White Blood Cell Count 5.52 K/mm3 (4.00-11.30)
[2019-08-20 05:53] LABS: Anion Gap 5 mmol/L (6-16); Blood Urea Nitrogen 12 mg/dL (8-24); Bun/Creatinine Ratio 22.1 (12.0-20.0); CO2, Blood 28 mmol/L (21-32); Calcium, Blood 8.6 mg/dL (8.5-10.1); Chloride, Blood 101 mmol/L (98-108); Creatinine, Blood 0.54 mg/dL (0.60-1.20); Glomerular Filtration Rate >60 (60-); Glucose, Blood 287 mg/dL (70-99); Potassium, Blood 4.2 mmol/L (3.5-5.5); Sodium, Blood 134 mmol/L (136-145)
--- NOTE | 2019-08-20 07:41 | NUR ---
08/19/191914 THIS NURSE UPON INITIAL ENTRANCE TO ROOM HAD PATIENT SCREAMING LOUDLY WHILE SWEARING THAT HE NEEDED HIS DRESSING CHANGED NOW; THIS NURSE PROVIDED LISTENING EAR AND ADVISED PATIENT THAT DRESSING WOULD BE CHNAGED ONCE THE OFFGOING RN--YIFAN ENTERED ORDERS FROM DR RUSSO WHICH SHE HAD; PT VERY AGRESSIVE WITH THIS NURSE ADVISING PATIENT THAT HIS BEHAVIOR WOULD NOT BE TOLERATED AND THAT THIS NURSE WOULD RETURN WHEN HE COULD CONTROL HIS BEHAVIOR IN APPROPRIATE MANNER. 1944 THIS NURSE AND MAGALIE NAIK RETURNED TO ROOM AND CHANGED RIGHT HIP DRESSING WITH MUCH DIFFICULTY DRESSING TO RIGHT HIP WAS STUCK IN PLACE (ENTIRE BOTTLE NORMAL SALINE WAS DUMPED ON WOUND WITH LARGE CLOTTED RED DRESSING REMOVED); THIS NURSE TOOK NEW PHOTOS (PERMIT ALREADY SIGNED EARLIER) AND APPLIED TO CHART.
--- NOTE | 2019-08-20 07:47 | NUR ---
SHIFT SUMMARY: 59 Y/O MALE RESTED COMFORTABLY ALL SHIFT AFTER EARLY EVENING RIGHT HIP DRESSING WAS PERFORMED BY THIS NURSE (SEE EARLIER NOTES); C/O RIGHT HIP DISCOMFORT RATED 6/10 WITH ROXICODONE 10MG PO GIVEN TWICE WITH RELIEF FELT; PT HAD FEW EPISODES OF YELLING AND SWEARING AT STAFF WHEN HE DIDN'T FEEL HIS NEEDS WERE MET WITH THIS NURSE PROVIDING LISTENING EAR AND ADVISING PATIENT THAT PATIENCE FROM HIM WOULD BE MORE APPRECIATED WITH ACKNOWLEDGEMENT NOTED; BED LOW POSITION WITH CALL LIGHT AT SIDE.
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
--- NOTE | 2019-08-21 03:38 | NUR ---
SHIFT SUMMARY PATIENT HAD NO ACUTE CHANGES OBSERVED. AXOX 4 AND INDEPENDENT. COOPERATIVE WITH STAFF. HX BIPOLAR. PIV REMAINS INTACT. IV ABX INFUSED X TWO. VSS/AFEBRILE. REPORTED R LEG PAIN X TWO AND OXYCODONE 10 MG GIVEN PER EMAR. CBG 275. DENIES SOB AND N/V. R HIP DRESSING INTACT. ACCOUNTS PAYABLE PROFESSIONAL REPORTS SR 90. CALL LIGHT IN REACH. BED IN LOWEST POSITION. WILL CONTINUE TO MONITOR UNTIL DAY SHIFT RN ASSUMES CARE.
--- NOTE | 2019-08-21 11:43 | NUR ---
DRESSING REMOVED AND LEFT RENEWALS REPRESENTATIVE FOR 30 MINUTES PER PT REQUEST. DRESSING REAPPLIED.
--- NOTE | 2019-08-21 18:18 | NUR ---
PATIENT HAD DRESSING CHANGED TO WOUND THIS SHIFT. PATIENT HAS BEEN PLEASANT AND COOPERATIVE WITH STAFF ALL SHIFT. PATIENT TO BE DISCHARGED WITHOUT WOUND VAC PER DR RUSSO. PLACEMENT TO BE DETERMINED. NO ACUTE CHANGES.
--- NOTE | 2019-08-22 04:29 | NUR ---
SHIFT SUMMARY ADMITTED FOR CELLULITIS/ABSCESS OF RT LEG. DRESSING IS C/D/I. IV VANCO ADMINISTERED ORDERED. IV FLUIDS DC'D. PLAN IS FOR DC, HOPEFUL FOR A BED AT A FACILITY IN [place] TOMORROW FOR IV ANTIBIOTIC ADMIN TO CONTINUE. CHEMSTICKS BEFORE MEALS. RA. PT STATES HE IS HOMELESS. ORAL PAIN MEDS GIVEN ORDERED.
[2019-08-22 11:38] LABS: Creatinine, Blood 0.63 mg/dL (0.60-1.20); Vancomycin, Trough 14.1 ug/mL (5.0-10.0)
--- NOTE | 2019-08-22 16:06 | NUR ---
SHIFT SUMMARY: PT IS A/O X 4 AND HAS ONGOING PAIN TO HIS RIGHT HIP/THIGH. THE DRESSING TO HIS THIGH/HIP WAS CHANGED TODAY ORDERED AND THE WOUND BED IS BEEFY RED WITH MODERATE AMOUNT OF SEROSANGUINEOUS DRAINAGE. IV FLUIDS/ABO INFUSED ORDERED WITH NO ISSUE. PT HAS BEEN WALKING AND AMBULATING WITH A FWW AROUND THE HALLS AND TO THE BATHROOM. PT IS COMPLIANT WITH HIS CARE AND ABLE TO MAKE HIS NEEDS KNOWN AND USES HIS CALL LIGHT APPROPRIATELY.
--- NOTE | 2019-08-22 17:34 | NUR ---
THIS NURSE CALLED TO PT ROOM BY PORCELAIN ENAMEL INSTALLER WHO REPORTS THAT EVEN THOUGH PT CBG WAS OVER 100 HE WAS SYMPTOMATIC OF HYPOGLYCEMIA WITH ACUTE ONSET OF FATIGUE AND CONFUSION WITH MILD TWITCHES. IV GLUCOSE WAS GIVEN ORDERED AND SYMPTOMS SUBSIDED. DR PARSONS WAS NOTIFIED AND GAVE ORDERS TO CHANGE INSULIN REFLECTED ON THE OCT. PT IS BACK AT BASELINE AND RESTING IN BED AWAITING DINNER.
--- NOTE | 2019-08-23 05:17 | NUR ---
SHIFT SUMMARY DX: CELLULITIS/ABSCESS RT LEG. DRESSING IN PLACE, CHANGED DAILY. PLAN IS FOR DC PLAC[facility] (IF POSSIBLE) [facility] 14 DAYS OF OV ANTIBIOTIC INFUSION PREFERABLE. CARE MANAGEMENT IS WORKING ON THIS. SEE TOXICOLOGY HX. HX: BIPOLAR, DM2. AC CHEMSTICKS. CONTACT PRECAUTIONS FOR MRSA IN WOUND. LANTUS ADJUSTED YESTERDAY TO 20 U DUE TO LOW-NORMAL GLUCOSE READING. PT EXPRESSED EXTREME ANXIETY ABOUT THIS TO DAY AND DRIVE THRU ORDER TAKER STAFF. PAIN RX IS SCHEDULED PRN Q 4, PT DOES EXPRESS ANXIETY ABOUT THIS WELL. INDEPENDENT IN ROOM. IV VANCO ADMINISTERED ORDERED. PT STATES HE IS HOMELESS, IF NOT PLACED.
--- NOTE | 2019-08-23 16:04 | NUR ---
SHIFT SUMMARY: PT HAS BEEN A/O X 4 WITH ONGOING C/O PAIN TO HIS RIGHT THIGH. WOUND TO HIS THIGH REMAINS UNCHANGED FROM YESTERDAY. WOUND BED IS BEEFY RED AND DICK WOUND IS INTACT. DRESSING WAS CHANGED ORDERED AFTER PT WAS SET UP FOR A SHOWER. PT HAS BEEN GENERALLY UNPLEASANT THROUGHOUT THE SHIFT BUT REMAINS COOPERATIVE WITH HIS CARE. PT CONTINUES TO SELF AMBULATE IN HIS ROOM AND TO THE BATHROOM WITH A FWW. IV ABO INFUSED ORDERED WITH NO ISSUE. PT IS ABLE TO MAKE HIS NEEDS KNOWN AND CALLS APPROPRIATELY WHEN NEEDED.
--- NOTE | 2019-08-24 07:22 | NUR ---
SHIFT SUMMARY ADMIT FOR CELLULITIS/ABSCESS OF RT HIP. FULL CODE. CONTACT FOR MRSA IN WOUND. PT WATCHED THE CLOCK FOR PAIN MED ADMINISTRATION, REQUIRING THE MEDICATION EXACTLY ON TIME. PLAN IS FOR OUTPT VISIT TO PODIATRY AND HOPEFUL FOR PLACEMENT IN A FACILITY WHERE HE CAR RECEIVE IV ANTIBIOTICS FOR 14 DAYS. THIS PT IS HOMELESS.
[2019-08-24] MEDS ORDERED: ALBU2.5V5 INH (10:56)
[2019-08-24] MEDS ORDERED: INSULANPEN SC (10:57)
[2019-08-24] MEDS ORDERED: Humalog100 UNIT/3 SC (10:58)
[2019-08-24] MEDS ORDERED: ROXICODONE5 MG PO (10:59)
[2019-08-24] MEDS ORDERED: DOXY100 PO (11:00)
--- NOTE | 2019-08-24 12:24 | NUR ---
PT DISCHARGED TO HOME. PT HOMELESS STATES THAT HE WAS OFFERED A PLACE TO STAY BY A "ANDRZEJ HE KNOWS." PT ALERT AND ORIENTED THROUGHOUT THIS SHIFT. PT INDEPENDENT IN THE ROOM AND HAS TAKEN MULTIPLE WALKS IN THE HALLWAY WITH FWW THIS SHIFT. IV REMOVED PRIOR TO DISCHARGE. PT ANXOUS ABOUT LEAVING DUE TO HIS TRANSPORTATION NEEDING TO GO BACK TO [place]. PT REFUSED TO WAIT UNTIL ALL FOLLOW-UP APPOINTMENTS WERE MADE, STATING THAT HE WOULD MAKE THEM HIMSELF. PT'S SON IN THE ROOM PRIOR TO DISCHARGE TO TAKE PT'S BELONGINGS. PT INDEPENDENT TO VEHICLE WITH USE OF FWW.
== END 2019-08-24 11:58 | disposition home or self-care (01) | DRG 854 ==
LOC: ER 13:45 → MEDS 16:05 → ENPENDDIS 08-24 09:57 → MEDS 08-24 11:58
PROVIDERS: Hospitalist; Internal Medicine; Orthopaedic Surgery; Pharmacist; Physician Assistant; ADMIT Internal Medicine
PROC: 0JBL0ZZ Excision of Right Upper Leg Subcutaneous Tissue and Fascia, Open Approach (ICD-10-PCS; principal; 2019-08-17 14:00)
DX: A41.9 Sepsis, unspecified organism (principal); L02.415 Cutaneous abscess of right lower limb; L03.115 Cellulitis of right lower limb; J44.9 Chronic obstructive pulmonary disease, unspecified; F31.9 Bipolar disorder, unspecified; I25.10 Atherosclerotic heart disease of native coronary artery without angina pectoris; Z89.431 Acquired absence of right foot; F17.210 Nicotine dependence, cigarettes, uncomplicated; Z59.0 Homelessness; Z66 Do not resuscitate; Z79.4 Long term (current) use of insulin; L73.8 Other specified follicular disorders; E11.51 Type 2 diabetes mellitus with diabetic peripheral angiopathy without gangrene; B18.2 Chronic viral hepatitis C
CPT/HCPCS: 36415; 73501; 80048; 80053; 80069; 80202; 82565; 82947; 83605; 83690; 85025; 85610; 85651; 85730; 86140; 87070; 87075; 87077; 87147; 87186; 87205; 94640; 94760; 96365; 96375; 99284-25; J1170; J1650; J2405; J2704; J3010; J3370; J7030; J7050; J7070; J7120

== ENCOUNTER 2019-09-09 17:22 | Inpatient (IN) | payer MEDICARE, OTHER ==
[~2019-09-09] VITALS: Ht 177.8 cm; Wt 70.8 kg
[~2019-09-09 17:22] MED LIST changes: +ALBU2.5V5 INH; +DOXY100 PO; +Humalog100 UNIT/3 SC; +ROXICODONE5 MG PO
[2019-09-09 18:26] LABS: Source, Urine Clean Catch
[2019-09-09 18:50] LABS: BASOPHILS ABSOLUTE AUTO 0.05 K/mm3 (0.00-0.23); BASOPHILS PERCENT AUTO 1 % (0-2); EOSINOPHILS ABSOLUTE AUTO 0.18 K/mm3 (0.00-0.68); EOSINOPHILS PERCENT AUTO 2 % (0-6); Hematocrit 41.7 % (37.0-53.0); Hemoglobin 13.8 g/dL (13.5-17.5); IMMATURE GRAN ABSOLUTE AUTO 0.07 K/mm3 (0.00-0.10); IMMATURE GRAN PERCENT AUTO 1 % (0-1); LYMPHOCYTES ABSOLUTE AUTO 1.34 K/mm3 (0.84-5.20); LYMPHOCYTES PERCENT AUTO 16 % (21-46); MONOCYTES ABSOLUTE AUTO 0.93 K/mm3 (0.16-1.47); MONOCYTES PERCENT AUTO 11 % (4-13); Mean Corpuscular HGB 29.4 pg (26.0-34.0); Mean Corpuscular HGB Conc 33.1 g/dL (31.5-36.5); Mean Corpuscular Volume 89 fL (80-100); Mean Platelet Volume 10.1 fL (9.1-12.4); NEUTROPHILS PERCENT AUTO 70 % (41-73); Platelet Count 187 K/mm3 (150-400); RDW Coefficient Variation 13.3 % (11.7-14.2); RDW Standard Deviation 43.5 fL (35.1-46.3); White Blood Cell Count 8.47 K/mm3 (4.00-11.30)
[2019-09-09 18:51] LABS: Appearance, Urine Clear (Clear); Bilirubin, Urine Neg (Neg); Blood, Urine Neg (Neg); Color, Urine Yellow (P-Yellow); Glucose Qualitative, Urine 4+ (Neg); Ketones, Urine Neg (Neg); Leukocyte Esterase, Urine Neg (Neg); Nitrite, Urine Neg (Neg); Protein, Urine 1+ (Neg); Specific Gravity, Urine 1.015 (1.003-1.022); Urobilinogen, Urine NORM (Normal)
[2019-09-09 19:05] LABS: U Amphetamine Screen Not Detected; U Barbituate Screen Not Detected; U Benzodiazapine Screen Not Detected; U Buprenorphine Screen Not Detected; U Cannabinoids Screen DETECTED; U Cocaine Screen Not Detected; U Methadone Screen Not Detected; U Methamphetamine Screen DETECTED; U Opiates Screen DETECTED; U Oxycodone Screen Not Detected; U Phencyclidine Screen Not Detected; U Propoxyphene Screen Not Detected
[2019-09-09 19:18] LABS: Ethanol (Alcohol), Blood, Med <3 mg/dL; Salicylate <1.7 mg/dL (2.8-20.0)
[2019-09-09 19:19] LABS: Alanine Aminotransfer (ALT/SGP 71 U/L (12-78); Albumin, Blood 3.3 g/dL (3.4-5.0); Albumin/Globulin Ratio 0.7 (0.8-1.8); Alk Phos 169 U/L (50-136); Anion Gap 9 mmol/L (6-16); Aspartate Aminotrans (AST/SGOT 31 U/L (12-37); Bilirubin, Total 0.3 mg/dL (0.1-1.0); Blood Urea Nitrogen 16 mg/dL (8-24); Bun/Creatinine Ratio 25.8 (12.0-20.0); CO2, Blood 25 mmol/L (21-32); Chloride, Blood 97 mmol/L (98-108); Creatinine, Blood 0.62 mg/dL (0.60-1.20); Globulin, Blood 4.6 g/dL (2.2-4.0); Glomerular Filtration Rate >60 (60-); Potassium, Blood 4.3 mmol/L (3.5-5.5); Sodium, Blood 131 mmol/L (136-145); Total Protein, Blood 7.9 g/dL (6.4-8.2)
[2019-09-09 19:31] LABS: Glucose, Blood 512 mg/dL (70-99)
[2019-09-09 19:32] LABS: Acetaminophen, Random <2.0 ug/mL (10.0-30.0)
--- NOTE | 2019-09-10 10:45 | NUR ---
PT ARRIVED TO THE MEDICAL FLOOR FROM THE ER, A/OX3, PLEASANT AND COOPERRATIVE, THE PT ON ARRIVAL TO THE FLOOR WAS ASKED IF HE HAD FEELINGS OF HURTING HIMSELF STILL, HE REPORTED AT THAT TIME THAT HE DID NOT, THE PT WAS ORIENTED TO THE ROOM CALL SYSTEM AND LAYOUT, A 1:1 SITTER WAS STATIONED AT THE ROOM, CALL LIGHT IN REACH, WILL CONTINUE TO MONITOR AND ASSESS FOR CHANGES
--- NOTE | 2019-09-10 17:05 | NUR ---
PT IS A/OX3, PLEEASANT AND COOPERATIVE, THE PT IS UP WITH MINIMAL ASSIST, THE PT HAS BEEN MOVED TO LOW RISK SI, THE PT APPEARS TO BE BREATHING EASILY ON RA AT THIS TIME, THE PT WAS SEEN BY PSYCH AND ORTHO , PTS WOUND DRESSING WAS CHANGED AND PHOTOS DOCUMENTED, 1:1 SITTER WAS REMOVED, CALL LIGHT IN REACH, WILL CONTINUE TO MONITOR FOR CHANGES
--- NOTE | 2019-09-10 20:49 | NUR ---
PATIENT AGITATED AND ANGRY AT START OF SHIFT. GAVE PRN SEROQUEL WITH BEDTIME MEDS PER EMAR. PT REFUSED INSULIN STATING HE WAS AFRAID HE WOULD GO TOO LOW DURING THE NIGHT. JQLP=[id number]. WILL MAKE ONCALL PROVIDER AWARE. PT IS MORE CALM AND APOLOGIZED FOR BEING ANGRY EARLIER. BED LOW AND LOCKED. CALL HUNT WITHIN REACH
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
--- NOTE | 2019-09-11 12:42 | NUR ---
Upon receiving a spiritual care referral, I visit patient. Patient immediately tells me about his hardships of living on the streets and how he had become suicidal and even stood on a bridge ready to jump. I explore patient's belief system and sources of value and purpose. We talk about what the Bible says about who he is and his worth. We also discuss next steps and where to go from here. I listen empathically, normalize patient's experience, reinforce helpful attitudes and practices and provide anxiety containment, pastoral treatment counselor and prayer. Patient responds well and displays evidence refreshed rehana. I will continue to remain available to patient and family.
--- NOTE | 2019-09-11 17:47 | NUR ---
PT ALERT, ORIENTED, AND COOPERATIVE WITH CARE THIS SHIFT. PT INDEPENDENT IN THE ROOM. PT SHOWERED INDEPENDENTLY TWICE THIS SHIFT. PT SPOKE WITH DR. LUQUE THIS SHIFT. PT ALSO SPOKE WITH CARE MANAGEMENT THIS SHIFT. PT SITTING UP IN CHAIR EATING DINNER AND WATCHING TELEVISION.
--- NOTE | 2019-09-12 04:44 | NUR ---
SHIFT SUMMARY PATIENT ALERT AND ORIENTED OVERNIGHT. HE WAS CALM AND SHOWED NO SIGNS OF SUICIDAL IDEATION AND DID NOT EXPRESS ANY DESIRE TO HARM HIMSELF. HE WAS ABLE TO SLEEP WELL MOST OF THE NIGHT. BED IN LOWEST POSITION WITH WHEELS LOCKED. CALL LIGHT STAN JENSEN. REPORT GIVEN TO ONCOMING RN.
--- NOTE | 2019-09-12 18:04 | NUR ---
PT ALERT, ORIENTED, AND INDEPENDENT IN THE ROOM. PT COOPERATIVE WITH CARE THROUGH THIS SHIFT. PT CONTINUES TO HAVE PAIN IN HIS WOUNDS ON HIS LEGS. PT MEDICATED FOR PAIN PER EMAR. PT UP TO SHOWER INDEPENDENTLY THIS SHIFT. PT UP IN CHAIR FOR MEALS THEN RESTING IN BED FOR THE REMAINDER OF THE SHIFT. PT CURRENTLY EATING DINNER.
--- NOTE | 2019-09-12 23:26 | NUR ---
PATIENT REFUSED BOTH PHYSICAL AND IV ASSESSMENT AT 2129.
--- NOTE | 2019-09-13 04:55 | NUR ---
SHIFT SUMMARY PATIENT ALERT AND ORIENTED. REQUESTED TO NOT BE DESTURBED OVERNIGHT SO HE COULD GET A GOOD NIGHT'S SLEEP. REFUSED TO HAVE AN ASSESSMENT DONE AT BEGINNING OF THE SHIFT AND DID NOT WANT MORNING VITALS DONE BY THE DRUG DEPARTMENT WORKER. BED IN LOWEST POSITION WITH WHEELS LOCKED. CALL LIGHT WITHIN REACH. REPORT GIVEN TO ONCOMING RN.
--- NOTE | 2019-09-13 15:27 | NUR ---
PT BECAME VERY AGIATED WHEN HE WAS OFFERED MEAT AND CHEESE FOR A SNACK. HE WANTED YA CRACKERS AND SALTINES BUT DUE TO HIS CBG AND DIABETIC HISTORY HE WAS OFFERED A LOWER CARB OPTION. PATIENT STATED HE WAS REFUSING TO HAVE HIS CBG DRAWN AGAIN AT 1630 AND STATED HE WOULD NOT BE HAVING ANY MORE INSULIN. PATIENT ALSO REQUESTED ANOTHER DOSE OF SEROQUEL AND WHEN EXPLANED THAT HE HAD ALREADY HAD AN PRN DOSE AND HIS NORMAL SCHEDULED DOSE HE BECAME MORE AGITATED. THIS NURSE EXPLAINE TO HIM HIS DOSING SCHEDULE AND STATED HE COULD HAVE IT AGIAN AT 1600 WHICH WAS THE SOONEST. THIS NURSE CALLED IN THE OTHER NURSE TO HELP DIFFUSE THE SITUATION AND CHANGE HIS LINENS WHILE TRYING TO EXPLAIN AGAIN IN A WAY HE COULD UNDERSTAND WHY HE HAD TO WAIT ANOTHER 90 MINUTES FOR HIS SEROQUEL. PATIENT THEN GOT IN SHOWER . CHEESE WAS BROUGHT IN BUT PATIENT REFUSED THE MEAT STATING HE DID NOT WANT TO EAT "RAW" MEAT EVEN AFTER EXPLAINED AGAIN THAT THE MEAT WAS COOKED, NOT RAW.
--- NOTE | 2019-09-13 17:49 | NUR ---
PATIENT HAS CALMED AND IS EATING DINNER. HE HAS APOLOGIZED FOR HIS OUTBURSTS EARLIER IN THE DAY. PT REMOVED DRESSINGS TO WOUNDS ON THIGHS AND STATED HE WANTED THEM OPEN. THIS NURSE DID NOT ARGUE THE POINT. WILL ATTEMPT TO REAPPLY BEFORE SHIFT END. CALL LIGHT WITHIN REACH.
--- NOTE | 2019-09-14 05:04 | NUR ---
SHIFT SUMMARY PATIENT ALERT AND ORIENTED. WHEN ASKED HE REPORTED HAVING NO THOUGHTS OF SUICIDE OR ANY PLANS TO COMMIT SUICIDE. HE JUST WISHES TO BE DISTURBED THE LEAST AMOUNT POSSIBLE OVERNIGHT SO HE CAN GET A FULL NIGHTS SLEEP. BED IN LOWEST POSITION WITH WHEELS LOCKED. CALL LIGHT AND BELONGINGS WITHIN REACH. REPORT GIVEN TO ONCOMING RN.
[2019-09-14] MEDS ORDERED: DOCU100 PO (12:51)
[2019-09-14] MEDS ORDERED: Doxycycline Mo100 M1 PO (12:51)
[2019-09-14] MEDS ORDERED: SEROQUEL25 MG PO (12:52)
[2019-09-14] MEDS ORDERED: INSR10I SC (12:52)
[2019-09-14] MEDS ORDERED: QUET25 PO (12:53)
[2019-09-14] MEDS ORDERED: RISP2 PO (12:53)
--- NOTE | 2019-09-14 15:02 | NUR ---
Patient is lying in bed and alert. Patient welcomes me in and tells me about his continual wagoner with evil and struggle to stay positive. We talk about coping skills and resources, about sources of meaning and value and about what scripture says about forgiveness and strength to do good. I listen empathically, recite inspirational sriptures, reinforce helpful attitudes and practices and provide prayer. Patient responds well and shows signs of an elevated mood. I will continue to remain available to patient and family.
--- NOTE | 2019-09-14 16:19 | NUR ---
DISCHARGE INSTRUCTIONS COMPLETED AND DISCUSSED WITH PT EXPRESSING UNDERSTANDING. SCRIPTS FAXED TO [facility]. CALLED [facility] AND REQUESTED INSULIN TO BE IN VIAL FORM, PT REPORTS HE IS UNABLE TO PUSH THE PENS PLUNDERS FOR INJECTION. PT ALSO STATES HIS GLUCOMETER IS NOT IN HIS BELONGINGS AND IS NO LONGER AT HIS LAST PLACE OF RESIDENCE. STATES HE WILL OBTAIN ONE TOMORROW AT [facility]. HAS BEEN INDEPENDENT IN ROOM AND TOOK HIS OWN SHOWER. DRESSINGS TO HIPS CHANGED AND PICS TAKEN JUST PRIOR TO DISCHARGING. PT REPORTS L HIP APPEARS WORSE THAN WHEN HE FIRST ARRIVED. TRANSPORTED SET UP FOR 1630. PT REQUESTING TO DISCHARGE TO OUTSIDE PRIOR TO RIDE SO HE CAN SMOKE. TO [facility] VIA W/C WITH HIM OF THE UNDERSTANDING RIDE TO BE HERE AT 1630 AT THE ED WAITING AREA. PT AWARE HE IS TO COME BY IN A COUPLE OF DAYS TO SPEAK WITH CASE MANAGEMENT ABOUT HIS CERTIFICATE. ALSO REPORTS HE HAS A PLACE TO STAY THAT IS INDOORS.
== END 2019-09-14 15:53 | disposition home or self-care (01) | DRG 885 ==
LOC: ER 17:22 → EOR 22:18 → MEDS 09-10 08:40
PROVIDERS: Physician Assistant; ADMIT Emergency Medicine
DX: F33.3 Major depressive disorder, recurrent, severe with psychotic symptoms (principal); R45.851 Suicidal ideations; L97.119 Non-pressure chronic ulcer of right thigh with unspecified severity; E87.1 Hypo-osmolality and hyponatremia; R44.0 Auditory hallucinations; F19.10 Other psychoactive substance abuse, uncomplicated; E11.622 Type 2 diabetes mellitus with other skin ulcer; E11.65 Type 2 diabetes mellitus with hyperglycemia; I25.10 Atherosclerotic heart disease of native coronary artery without angina pectoris; F17.210 Nicotine dependence, cigarettes, uncomplicated; Z59.0 Homelessness; Z88.0 Allergy status to penicillin; Z86.14 Personal history of Methicillin resistant Staphylococcus aureus infection; Z95.5 Presence of coronary angioplasty implant and graft; Z79.4 Long term (current) use of insulin
CPT/HCPCS: 36415; 80053; 82947; 84443; 85025; 96372; 99285; A9270-GY; G0480; J1650; J1815; Q3014

== ENCOUNTER 2019-09-19 08:59 | Emergency (ER) | payer MEDICARE, OTHER ==
[~2019-09-19] VITALS: Ht 177.8 cm; Wt 71.2 kg
[~2019-09-19 08:59] MED LIST changes: +DOCU100 PO; +Doxycycline Mo100 M1 PO; +INSR10I SC; +QUET25 PO; +RISP2 PO; +SEROQUEL25 MG PO
[2019-09-19 12:41] LABS: BASOPHILS ABSOLUTE AUTO 0.04 K/mm3 (0.00-0.23); BASOPHILS PERCENT AUTO 1 % (0-2); EOSINOPHILS ABSOLUTE AUTO 0.13 K/mm3 (0.00-0.68); EOSINOPHILS PERCENT AUTO 2 % (0-6); Hematocrit 37.6 % (37.0-53.0); Hemoglobin 12.6 g/dL (13.5-17.5); IMMATURE GRAN ABSOLUTE AUTO 0.03 K/mm3 (0.00-0.10); IMMATURE GRAN PERCENT AUTO 1 % (0-1); LYMPHOCYTES ABSOLUTE AUTO 1.38 K/mm3 (0.84-5.20); LYMPHOCYTES PERCENT AUTO 24 % (21-46); MONOCYTES ABSOLUTE AUTO 0.91 K/mm3 (0.16-1.47); MONOCYTES PERCENT AUTO 16 % (4-13); Mean Corpuscular HGB 29.6 pg (26.0-34.0); Mean Corpuscular HGB Conc 33.5 g/dL (31.5-36.5); Mean Corpuscular Volume 89 fL (80-100); NEUTROPHILS ABSOLUTE AUTO 3.35 K/mm3 (1.96-9.15); NEUTROPHILS PERCENT AUTO 57 % (41-73); Platelet Count 178 K/mm3 (150-400); RDW Coefficient Variation 12.8 % (11.7-14.2); RDW Standard Deviation 41.7 fL (35.1-46.3); Red Blood Cell Count 4.25 M/mm3 (4.30-5.90); White Blood Cell Count 5.84 K/mm3 (4.00-11.30)
[2019-09-19 12:52] LABS: Alanine Aminotransfer (ALT/SGP 54 U/L (12-78); Albumin/Globulin Ratio 0.8 (0.8-1.8); Alk Phos 137 U/L (50-136); Anion Gap 4 mmol/L (6-16); Aspartate Aminotrans (AST/SGOT 27 U/L (12-37); Bilirubin, Total 0.4 mg/dL (0.1-1.0); Blood Urea Nitrogen 11 mg/dL (8-24); Bun/Creatinine Ratio 18.2 (12.0-20.0); CO2, Blood 27 mmol/L (21-32); Calcium, Blood 8.5 mg/dL (8.5-10.1); Chloride, Blood 102 mmol/L (98-108); Creatinine, Blood 0.61 mg/dL (0.60-1.20); Glomerular Filtration Rate >60 (60-); Glucose, Blood 347 mg/dL (70-99); Potassium, Blood 4.1 mmol/L (3.5-5.5); Sodium, Blood 133 mmol/L (136-145)
== END 2019-09-19 14:50 | disposition home or self-care (01) ==
LOC: ER 08:59
PROVIDERS: Emergency Medicine
DX: L02.416 Cutaneous abscess of left lower limb (principal); L02.415 Cutaneous abscess of right lower limb; E11.65 Type 2 diabetes mellitus with hyperglycemia; Z91.14 Patient's other noncompliance with medication regimen; F31.9 Bipolar disorder, unspecified; F17.200 Nicotine dependence, unspecified, uncomplicated; J44.9 Chronic obstructive pulmonary disease, unspecified; I25.10 Atherosclerotic heart disease of native coronary artery without angina pectoris; Z86.19 Personal history of other infectious and parasitic diseases; Z88.0 Allergy status to penicillin; Z91.09 Other allergy status, other than to drugs and biological substances; Z79.899 Other long term (current) drug therapy
CPT/HCPCS: 36415; 73700; 80053; 85025; 99284-25

== ENCOUNTER 2019-12-20 12:39 | Emergency (ER) | payer MEDICARE, OTHER ==
[~2019-12-20] VITALS: Ht 177.8 cm; Wt 79.4 kg
[~2019-12-20 12:39] MED LIST changes: +Ventolin/Prove6.7 GM INH
[2019-12-20 13:18] LABS: BASOPHILS ABSOLUTE AUTO 0.05 K/mm3 (0.00-0.23); BASOPHILS PERCENT AUTO 1 % (0-2); EOSINOPHILS PERCENT AUTO 3 % (0-6); IMMATURE GRAN ABSOLUTE AUTO 0.07 K/mm3 (0.00-0.10); IMMATURE GRAN PERCENT AUTO 1 % (0-1); LYMPHOCYTES ABSOLUTE AUTO 1.47 K/mm3 (0.84-5.20); LYMPHOCYTES PERCENT AUTO 21 % (21-46); MONOCYTES ABSOLUTE AUTO 0.54 K/mm3 (0.16-1.47); MONOCYTES PERCENT AUTO 8 % (4-13); Mean Corpuscular HGB 29.6 pg (26.0-34.0); Mean Corpuscular HGB Conc 34.1 g/dL (31.5-36.5); Mean Corpuscular Volume 87 fL (80-100); Mean Platelet Volume 10.1 fL (9.1-12.4); NEUTROPHILS ABSOLUTE AUTO 4.72 K/mm3 (1.96-9.15); NEUTROPHILS PERCENT AUTO 67 % (41-73); Platelet Count 176 K/mm3 (150-400); RDW Coefficient Variation 14.3 % (11.7-14.2); RDW Standard Deviation 45.2 fL (35.1-46.3); Red Blood Cell Count 5.07 M/mm3 (4.30-5.90); White Blood Cell Count 7.05 K/mm3 (4.00-11.30)
[2019-12-20 13:39] LABS: Alanine Aminotransfer (ALT/SGP 69 U/L (12-78); Albumin, Blood 3.1 g/dL (3.4-5.0); Albumin/Globulin Ratio 0.6 (0.8-1.8); Alk Phos 134 U/L (50-136); Anion Gap 3 mmol/L (6-16); Aspartate Aminotrans (AST/SGOT 42 U/L (12-37); Bilirubin, Total 0.3 mg/dL (0.1-1.0); Blood Urea Nitrogen 19 mg/dL (8-24); Bun/Creatinine Ratio 32.8 (12.0-20.0); CO2, Blood 30 mmol/L (21-32); Calcium, Blood 8.7 mg/dL (8.5-10.1); Chloride, Blood 100 mmol/L (98-108); Creatinine, Blood 0.58 mg/dL (0.60-1.20); Globulin, Blood 4.8 g/dL (2.2-4.0); Glomerular Filtration Rate >60 (60-); Glucose, Blood 375 mg/dL (70-99); Potassium, Blood 4.6 mmol/L (3.5-5.5); Sodium, Blood 133 mmol/L (136-145); Total Protein, Blood 7.9 g/dL (6.4-8.2); Troponin I <0.015 ng/mL (0.000-0.040)
[2019-12-20] MEDS ORDERED: Neurontin 300300 MG PO (14:55)
== END 2019-12-20 15:10 | disposition home or self-care (01) ==
LOC: ER 12:39
PROVIDERS: Emergency Medicine
DX: J44.1 Chronic obstructive pulmonary disease with (acute) exacerbation (principal); E11.40 Type 2 diabetes mellitus with diabetic neuropathy, unspecified; I10 Essential (primary) hypertension; I25.10 Atherosclerotic heart disease of native coronary artery without angina pectoris; F31.9 Bipolar disorder, unspecified; F17.210 Nicotine dependence, cigarettes, uncomplicated; Z91.14 Patient's other noncompliance with medication regimen; Z91.041 Radiographic dye allergy status; Z88.0 Allergy status to penicillin; Z79.4 Long term (current) use of insulin; Z79.51 Long term (current) use of inhaled steroids; Z79.899 Other long term (current) drug therapy
CPT/HCPCS: 36415; 71045; 80053; 82947; 83880; 84484; 85025; 93005; 93010; 94640; 96360; 99285-25; J1815; J7030

== ENCOUNTER 2020-09-20 07:40 | Inpatient (IN) | payer MEDICARE, OTHER ==
[~2020-09-20] VITALS: Ht 177.8 cm; Wt 69.0 kg
[~2020-09-20 07:40] MED LIST changes: +NOVOLOG FL100 UNIT/3 SC
[2020-09-20 08:32] LABS: BASOPHILS ABSOLUTE AUTO 0.09 K/mm3 (0.00-0.23); BASOPHILS PERCENT AUTO 0 % (0-2); EOSINOPHILS ABSOLUTE AUTO 0.01 K/mm3 (0.00-0.68); EOSINOPHILS PERCENT AUTO 0 % (0-6); Hematocrit 40.7 % (37.0-53.0); Hemoglobin 14.8 g/dL (13.5-17.5); IMMATURE GRAN ABSOLUTE AUTO 0.31 K/mm3 (0.00-0.10); IMMATURE GRAN PERCENT AUTO 1 % (0-1); LYMPHOCYTES ABSOLUTE AUTO 0.99 K/mm3 (0.84-5.20); LYMPHOCYTES PERCENT AUTO 4 % (21-46); MONOCYTES ABSOLUTE AUTO 1.88 K/mm3 (0.16-1.47); MONOCYTES PERCENT AUTO 7 % (4-13); Mean Corpuscular HGB 30.5 pg (26.0-34.0); Mean Corpuscular HGB Conc 36.4 g/dL (31.5-36.5); Mean Corpuscular Volume 84 fL (80-100); Mean Platelet Volume 9.3 fL (9.1-12.4); NEUTROPHILS ABSOLUTE AUTO 24.97 K/mm3 (1.96-9.15); NEUTROPHILS PERCENT AUTO 88 % (41-73); Platelet Count 247 K/mm3 (150-400); RDW Coefficient Variation 13.2 % (11.7-14.2); RDW Standard Deviation 40.2 fL (35.1-46.3); Red Blood Cell Count 4.86 M/mm3 (4.30-5.90); White Blood Cell Count 28.25 K/mm3 (4.00-11.30)
[2020-09-20 08:56] LABS: Alanine Aminotransfer (ALT/SGP 35 U/L (12-78); Albumin, Blood 2.3 g/dL (3.4-5.0); Albumin/Globulin Ratio 0.4 (0.8-1.8); Alk Phos 139 U/L (50-136); Anion Gap 8 mmol/L (6-16); Aspartate Aminotrans (AST/SGOT 29 U/L (12-37); Beta-hydroxybutyrate 10.3 mg/dL (0.2-2.8); Bilirubin, Total 1.4 mg/dL (0.1-1.0); Blood Urea Nitrogen 5 mg/dL (8-24); Bun/Creatinine Ratio 10.2 (12.0-20.0); CO2, Blood 29 mmol/L (21-32); Calcium, Blood 8.9 mg/dL (8.5-10.1); Chloride, Blood 88 mmol/L (98-108); Creatinine, Blood 0.49 mg/dL (0.60-1.20); Globulin, Blood 5.8 g/dL (2.2-4.0); Glomerular Filtration Rate >60 (60-); Glucose, Blood 405 mg/dL (70-99); Potassium, Blood 3.9 mmol/L (3.5-5.5); Sodium, Blood 125 mmol/L (136-145); Total Protein, Blood 8.1 g/dL (6.4-8.2)
[2020-09-20] MEDS ORDERED: LEVEMIR100 UNIT/1 SC (11:38)
[2020-09-20] MEDS ORDERED: ANORO ELLIPTA1 EAC1 INH (11:38)
[2020-09-20] MEDS ORDERED: ROPINIROLE HC0.25 M2 PO (11:39)
[2020-09-20] MEDS ORDERED: ROWEEPRA PO (11:39)
[2020-09-20] MEDS ORDERED: FLUTICASONE-SA1 EAC9 INH (11:40)
--- NOTE | 2020-09-20 12:08 | NUR ---
PT ARRIVED TO ROOM 313 FROM ER VIA GURNEY, ABLE TO STAND AND PIVOT ONTO BED. PT ORIENTED TO ROOM AND CALL SYSTEM. BED IN LOWEST POSITION AND CALL HUNT IN REACH. WILL MONITOR
[2020-09-20 16:03] LABS: Source, Urine Clean Catch
[2020-09-20 16:08] LABS: Appearance, Urine Clear (Clear); Bilirubin, Urine Neg (Neg); Blood, Urine 5+ (Neg); Color, Urine Amber (P-Yellow); Glucose Qualitative, Urine 4+ (Neg); Ketones, Urine 3+ (Neg); Leukocyte Esterase, Urine 1+ (Neg); Nitrite, Urine Neg (Neg); Protein, Urine 3+ (Neg); Specific Gravity, Urine 1.015 (1.003-1.022); Urobilinogen, Urine 3+ (Normal)
[2020-09-20 16:22] LABS: Red Blood Cells, Urine 25-50 /hpf (0-2); Squamous Epithelial Cells Rare /hpf (Few); White Blood Cells, Urine 0-2 /hpf (0-5)
[2020-09-20 16:23] LABS: Bacteria Rare /hpf; U Amphetamine Screen DETECTED; U Methamphetamine Screen DETECTED
[2020-09-20 16:24] LABS: U Barbituate Screen Not Detected; U Benzodiazapine Screen Not Detected; U Buprenorphine Screen Not Detected; U Cannabinoids Screen DETECTED; U Cocaine Screen Not Detected; U Methadone Screen Not Detected; U Opiates Screen Not Detected; U Oxycodone Screen Not Detected; U Phencyclidine Screen Not Detected; U Propoxyphene Screen Not Detected
--- NOTE | 2020-09-20 18:00 | NUR ---
AFTERNOON CBG = 418, DR PEREYRA INFORMED, NO ADDITIONAL INSULIN AT THIS TIME. PT IS ALSO A CEDS OF 1/2 DAILY, ORDER FOR NICOTINE PATCH 14MG RECEIVED.
--- NOTE | 2020-09-20 18:56 | NUR ---
NO ACUTE CHANGES SINCE ARRIVAL TO ROOM, C/O OF PAIN TO NECK AND RT KNEE, MEDICATED PER EMAR WITH MILD RELIEF. WILL CONTINUE TO MONITOR AND REPORT TO ONCOMING RN
--- NOTE | 2020-09-21 03:43 | NUR ---
PT with MRSA & homelessness admitted with multiple draing skin abscess. In contact isolation for MRSA & draining wounds, hep c. Labile PT can be verbally abusive. PT says no shower x 2 weeks & demands shower at shift change rounding. Set up for shower but PT declined. Wound care to multiple draing abscesses. PT medicated with iv toradol x 1 with good effect with ultram 50 mg po x 1 with helpful effect. Continues on Vanco & iv fluids. No OOB fall precautions.
[2020-09-21 04:55] LABS: BASOPHILS ABSOLUTE AUTO 0.07 K/mm3 (0.00-0.23); BASOPHILS PERCENT AUTO 0 % (0-2); EOSINOPHILS ABSOLUTE AUTO 0.21 K/mm3 (0.00-0.68); EOSINOPHILS PERCENT AUTO 1 % (0-6); Hematocrit 34.2 % (37.0-53.0); Hemoglobin 11.9 g/dL (13.5-17.5); IMMATURE GRAN ABSOLUTE AUTO 0.41 K/mm3 (0.00-0.10); IMMATURE GRAN PERCENT AUTO 2 % (0-1); LYMPHOCYTES ABSOLUTE AUTO 1.06 K/mm3 (0.84-5.20); LYMPHOCYTES PERCENT AUTO 5 % (21-46); MONOCYTES ABSOLUTE AUTO 1.75 K/mm3 (0.16-1.47); MONOCYTES PERCENT AUTO 9 % (4-13); Mean Corpuscular HGB 29.5 pg (26.0-34.0); Mean Corpuscular HGB Conc 34.8 g/dL (31.5-36.5); Mean Corpuscular Volume 85 fL (80-100); Mean Platelet Volume 9.3 fL (9.1-12.4); NEUTROPHILS PERCENT AUTO 83 % (41-73); Platelet Count 183 K/mm3 (150-400); RDW Coefficient Variation 13.2 % (11.7-14.2); RDW Standard Deviation 40.4 fL (35.1-46.3); Red Blood Cell Count 4.03 M/mm3 (4.30-5.90)
[2020-09-21 05:14] LABS: Alanine Aminotransfer (ALT/SGP 24 U/L (12-78); Albumin, Blood 1.6 g/dL (3.4-5.0); Albumin/Globulin Ratio 0.3 (0.8-1.8); Alk Phos 102 U/L (50-136); Anion Gap 5 mmol/L (6-16); Aspartate Aminotrans (AST/SGOT 22 U/L (12-37); Bilirubin, Total 0.6 mg/dL (0.1-1.0); Blood Urea Nitrogen 13 mg/dL (8-24); CHOL/HDL RATIO 3.6; CO2, Blood 28 mmol/L (21-32); Calcium, Blood 7.6 mg/dL (8.5-10.1); Chloride, Blood 98 mmol/L (98-108); Cholesterol 62 mg/dL (50-200); Creatinine, Blood 0.69 mg/dL (0.60-1.20); Globulin, Blood 4.7 g/dL (2.2-4.0); Glomerular Filtration Rate >60 (60-); Glucose, Blood 313 mg/dL (70-99); HDL Cholesterol 17 mg/dL (>39); LDL/HDL RATIO 1.9; Low Density Lipoprotein Chol 32 mg/dL (0-110); Magnesium, Blood 1.8 mg/dL (1.6-2.4); Sodium, Blood 131 mmol/L (136-145); Total Protein, Blood 6.3 g/dL (6.4-8.2); Triglycerides 63 mg/dL (30-160); Very Low Density Lipoprot Chol 12 mg/dL (6-32)
--- NOTE | 2020-09-21 05:48 | NUR ---
60 year old MAle with hx of MRSA Hep C homelessness & multiple abscessed wounds admitted with sepsis. He is diabetic with hx of partial foot amputions with drainage from bilat feet & rt knee abscess which has been drained in ER. Posterior cervical abscess as well as area on top of head with drainage. Wound care completed after medicating PT for pain. PT on IV fluids IV vanco. Void x 1 audie urine. Can be very labile & blames staff for no shower in last 2 weeks & incompentent staff then apoligized. HAs SW referral for DC planning. 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 Smoker has nicotine patch ordered.
[2020-09-21 09:47] LABS: Vancomycin, Trough 7.9 ug/mL (5.0-10.0)
--- NOTE | 2020-09-21 13:14 | NUR ---
HE HAS SHOWERED. HE ATE MED. AMT OF BREAKFAST. CBG WAS 395 BEFORE LUNCH. I NOTIFIED . SS INSULIN CHANGED TO HIGH. HE HAS NOT BEEN TAKING ANY PRESCRIPTION MEDICINES FOR MANY MONTHS. STEFANO HAS RX ORDERS FROM LAST DECEMBER THAT HE NEVER PICKED UP. HE SAYS HE HASN'T BEEN USING ANY OF THE LOCAL PHARMACIES. DIET CHANGED TO MECH SOFT WITH GROUND MEATS BECAUSE HE HAS NO TEETH. BOTH FOOT DRESSINGS CHNAGED AFTER HIS SHOWER. HE REFUSED THE NECK/BACK ONE AT THAT TIME BUT SAYS LATER IS OK. VSS. NO FEVER. NOW HE TELLS ME HE HAS NOT HAD A BM FOR 5 DAYS. WILL ASK FOR BOWEL CARE ORDERS. HIS R KNEE DRESSING WAS WRAPPED IN PLASTIC FOR THE SHOWER. IT HAS NOT BEEN CHANGED. HE SAID NO. I WILL EDUCATE HIM ABOUT IT SO WE CAN DO DRESSING CHANGES THERE TOO.
--- NOTE | 2020-09-21 15:51 | NUR ---
HE IS ASLEEP. ROUNDED EARLIER. SHE HAS CALLED 2 CONSULTS REGARDING HIS ABSCESSES, NEITHER OF WHICH ARE HERE YET. HE ATE WELL AT LUNCH WHEN I CHANGED HIS DIET TO ADA MECH SOFT. THE PAGE TECHNICIAN ALSO CONSULTED WITH HIM. HIGH SLIDING SCALE WAS STARTED AT LUNCHTIME. HIS LONG ACTING INSULIN HAS BEEN INCREASED. WILL OFFER HIM BOWEL CARE WHEN HE IS AWAKE.
--- NOTE | 2020-09-21 16:16 | NUR ---
DR. LOGAN WAS HERE. I DID NOT SEE HIM BUT THE PATIENT SAYS HE WAS JUST TOLD HE'LL GO TO OR TOMORROW FOR HIS BACK ABSCESS NEAR HIS NECK. HIS CBG NOW IS 289 WHICH IS IMPROVED AFTER THE EARLIER DOSE OF HIGH SS.
--- NOTE | 2020-09-21 18:20 | NUR ---
BOTH AND CONSULTED ON HIM TODAY CONCERNING THE BACK OF THE NECK WOUND AND HIS RT KNEE WOUND. CLEANED AND CHANGED THE RT KNEE WOUND. IT IS A MEDIAL WOUND. ABD AND MICHAEL ARE NOW IN PLACE. HE WILL BE NPO AFTER MN FOR BOTH THOSE WOUNDS TO BE CLEANED AND DRAINED IN OR TOMORROW. COVID SWAB SENT TO LAB.
[2020-09-21 18:31] LABS: Influenza A, PCR Negative (NEGATIVE); Influenza B, PCR Negative (NEGATIVE); Resp Syncytial Virus, PCR Negative (NEGATIVE); SARS-Cov-2 (COVID-19) PCR, MMC Negative (NEGATIVE)
--- NOTE | 2020-09-21 18:48 | NUR ---
Per admit trigger, I met with Larry to offer prayer and spiritual queen's counsel. 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 He was quite talkative but made little sense. I provided prayer (which he interuppted to talk about fishing.) I brought him several warm blankets and warmed the room via thermostat. I will remain available.
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
[2020-09-22 05:13] LABS: BASOPHILS ABSOLUTE AUTO 0.13 K/mm3 (0.00-0.23); BASOPHILS PERCENT AUTO 1 % (0-2); EOSINOPHILS ABSOLUTE AUTO 0.33 K/mm3 (0.00-0.68); EOSINOPHILS PERCENT AUTO 2 % (0-6); Hematocrit 35.2 % (37.0-53.0); IMMATURE GRAN ABSOLUTE AUTO 0.22 K/mm3 (0.00-0.10); IMMATURE GRAN PERCENT AUTO 1 % (0-1); LYMPHOCYTES ABSOLUTE AUTO 0.94 K/mm3 (0.84-5.20); LYMPHOCYTES PERCENT AUTO 5 % (21-46); MONOCYTES ABSOLUTE AUTO 1.81 K/mm3 (0.16-1.47); MONOCYTES PERCENT AUTO 10 % (4-13); Mean Corpuscular HGB 29.6 pg (26.0-34.0); Mean Corpuscular HGB Conc 34.1 g/dL (31.5-36.5); Mean Corpuscular Volume 87 fL (80-100); Mean Platelet Volume 9.1 fL (9.1-12.4); NEUTROPHILS PERCENT AUTO 82 % (41-73); Platelet Count 180 K/mm3 (150-400); RDW Coefficient Variation 13.1 % (11.7-14.2); RDW Standard Deviation 41.4 fL (35.1-46.3); Red Blood Cell Count 4.06 M/mm3 (4.30-5.90); White Blood Cell Count 18.83 K/mm3 (4.00-11.30)
[2020-09-22 05:36] LABS: Anion Gap 4 mmol/L (6-16); Blood Urea Nitrogen 12 mg/dL (8-24); Bun/Creatinine Ratio 20.7 (12.0-20.0); CO2, Blood 27 mmol/L (21-32); Calcium, Blood 8.1 mg/dL (8.5-10.1); Chloride, Blood 100 mmol/L (98-108); Creatinine, Blood 0.58 mg/dL (0.60-1.20); Glomerular Filtration Rate >60 (60-); Glucose, Blood 166 mg/dL (70-99); Potassium, Blood 4.6 mmol/L (3.5-5.5); Sodium, Blood 131 mmol/L (136-145)
--- NOTE | 2020-09-22 07:23 | NUR ---
PT continues with draining abscess in mult areas. Irritable & labile refused wound care. Medicated with toradol 15 mg x 1 with helpful effect for multiple wound site pain. Meth positive PT with hx MRSA & hep C. Drainage present from multiple sites. Continues in contact isolation. NPO for surgery to & I D rt knee Posterior cervical & rt stump wounds.
--- NOTE | 2020-09-22 12:41 | NUR ---
HE HAS BEEN SLEEPING COMFORTABLY ALL DAY. HE WOKE UP THIS MORNING FOR MEDICATIONS AND ASSESSMENT ONLY. HE HAS USED THE URINAL AT THE BEDSIDE. OR DEPT SAYS THEY WILL COME FOR HIM BETWEEN 2 AND 3 O'CLOCK.
--- NOTE | 2020-09-22 15:19 | NUR ---
HE WENT TO OR ABOUT 1415 BY SHIMA. HE SAID HE FELT FEVERISH JUST BEFORE HE LEFT. I CHANGED HIS NECK DRESSING AFTER SAW HIM THIS AFTERNOON. IT HAD DRAINED A LARGE AMT OF PUS AND SMALLER AMT OF BLOOD. HIS R KNEE DRESSING HAD A MODERATE AMT OF BLODDY DRAINAGE ON THE ABD.
--- NOTE | 2020-09-22 18:19 | NUR ---
RECEIVED BACK TO HIS ROOM FROM PACU AT 1705 ASKING FOR FOOD AND SAYING HIS NECK HURTS. HE IS ALERT AND ABLE TO TRANSFER ON HIS FEET OVER TO THE BED FROM THE [facility]. IVF RESUMED. JELLO, WATER AND APPLE JUICE GIVEN TO HIM. VS CHECKED AND STABLE. L DORSAL NECK, REALLY SUPRASCAPULAR AREA WITH INTACT DRESSING. THE PACU NURSE SAYS THERE IS A DRAIN UNDERNEATH. HE ALSO HAS A GAUZE DRESSING AND MICHAEL WRAP ON THE R KNEE. NO DRAINAGE SHOWING THROUGH YET IN EITHER PLACE. BOTH FEET GAUZE UNCHANGED FROM EARLIER TODAY. HE HAS ALSO EATEN GRAHM CRACKERS AND A FULL DINNER. NO N/V AT THIS TIME. VSS X3 SO FAR.
--- NOTE | 2020-09-23 05:25 | NUR ---
SHIFT SUMMARY NO ACUTE CHANGES THIS SHIFT. PT ACCIDENTALLY PULLED LW IV OUT, NEW IV PLACED IN RFA. WOUND CARE DONE WITH BACITRICAIN OINTMENT APPLIED. PT CALM AND COOPERATIVE WITH CARE. PT SLEPT WELL T/O NIGHT WITH NO COMPLAINTS OF ANY KIND. PT IS LAYING IN BED WITH EYES CLOSED, EVEN AND UNLABORED RESPIRATIONS. BED IN LOWERED POSITION WITH ALARM IN PLACE. CALL LIGHT AND PERSONAL ITEMS WITH IN REACH. NO APPARENT NEEDS OR DISTRESS AT THIS TIME, WILL CONTINUE TO MONITOR UNTIL REPORT GIVEN TO DAY RN.
[2020-09-23 09:02] LABS: BASOPHILS ABSOLUTE AUTO 0.09 K/mm3 (0.00-0.23); BASOPHILS PERCENT AUTO 1 % (0-2); EOSINOPHILS PERCENT AUTO 0 % (0-6); Hematocrit 37.8 % (37.0-53.0); Hemoglobin 13.1 g/dL (13.5-17.5); IMMATURE GRAN ABSOLUTE AUTO 0.23 K/mm3 (0.00-0.10); IMMATURE GRAN PERCENT AUTO 1 % (0-1); LYMPHOCYTES ABSOLUTE AUTO 0.67 K/mm3 (0.84-5.20); LYMPHOCYTES PERCENT AUTO 4 % (21-46); MONOCYTES ABSOLUTE AUTO 0.71 K/mm3 (0.16-1.47); MONOCYTES PERCENT AUTO 4 % (4-13); Mean Corpuscular HGB 29.8 pg (26.0-34.0); Mean Corpuscular HGB Conc 34.7 g/dL (31.5-36.5); Mean Corpuscular Volume 86 fL (80-100); Mean Platelet Volume 8.9 fL (9.1-12.4); NEUTROPHILS ABSOLUTE AUTO 16.65 K/mm3 (1.96-9.15); NEUTROPHILS PERCENT AUTO 91 % (41-73); Platelet Count 253 K/mm3 (150-400); RDW Coefficient Variation 13.1 % (11.7-14.2); RDW Standard Deviation 40.9 fL (35.1-46.3); Red Blood Cell Count 4.39 M/mm3 (4.30-5.90); White Blood Cell Count 18.35 K/mm3 (4.00-11.30)
[2020-09-23 09:30] LABS: Anion Gap 6 mmol/L (6-16); Blood Urea Nitrogen 14 mg/dL (8-24); Bun/Creatinine Ratio 24.6 (12.0-20.0); CO2, Blood 27 mmol/L (21-32); Calcium, Blood 8.1 mg/dL (8.5-10.1); Chloride, Blood 101 mmol/L (98-108); Creatinine, Blood 0.57 mg/dL (0.60-1.20); Glomerular Filtration Rate >60 (60-); Glucose, Blood 383 mg/dL (70-99); Potassium, Blood 4.2 mmol/L (3.5-5.5); Sodium, Blood 134 mmol/L (136-145); Vancomycin, Trough 16.4 ug/mL (5.0-10.0)
--- NOTE | 2020-09-23 09:34 | NUR ---
09/23/20 0934 Yuli Zuñiga VERIFICATIONS: EDIT CHART.
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
--- NOTE | 2020-09-23 17:08 | NUR ---
PT PLEASNT TODAY. DOES LIKE IT DARK AND QUIET THROUGH LATE AM. DRESSING CHANGES COMPLETED TODAY. ALL THREE. SOME S/S FLUID ON SHOULDER . SOME REDNESS. REDRESSSED. RT LEG WOUND SOME REDNESS. REDRESSED. RT FOOT. REDRESSED AND REWRAPPED. PT DID TAKE SHOWER TODAY. ALSO DISCUSSED GLUCOSE LEVELS WITH DR TODAY. ORDERS EXPECTED. DID OFFER DIABETIC BOOK FOR TRAINING. ALSO OFFERED SOME CONSULT FROM NUTRITION, VINNY HARRINGTON. NO OTHER CONCERNS TODAY. BED IN LOW POSITION, CALL LITE IN REACH, CALLS APPROP
[2020-09-24 05:27] LABS: BASOPHILS ABSOLUTE AUTO 0.09 K/mm3 (0.00-0.23); BASOPHILS PERCENT AUTO 1 % (0-2); EOSINOPHILS ABSOLUTE AUTO 0.22 K/mm3 (0.00-0.68); EOSINOPHILS PERCENT AUTO 2 % (0-6); Hematocrit 31.9 % (37.0-53.0); Hemoglobin 10.6 g/dL (13.5-17.5); IMMATURE GRAN ABSOLUTE AUTO 0.24 K/mm3 (0.00-0.10); IMMATURE GRAN PERCENT AUTO 2 % (0-1); LYMPHOCYTES ABSOLUTE AUTO 1.48 K/mm3 (0.84-5.20); LYMPHOCYTES PERCENT AUTO 13 % (21-46); MONOCYTES ABSOLUTE AUTO 0.97 K/mm3 (0.16-1.47); MONOCYTES PERCENT AUTO 9 % (4-13); Mean Corpuscular HGB 29.3 pg (26.0-34.0); Mean Corpuscular HGB Conc 33.2 g/dL (31.5-36.5); Mean Corpuscular Volume 88 fL (80-100); Mean Platelet Volume 9.1 fL (9.1-12.4); NEUTROPHILS ABSOLUTE AUTO 8.34 K/mm3 (1.96-9.15); NEUTROPHILS PERCENT AUTO 74 % (41-73); Platelet Count 248 K/mm3 (150-400); RDW Coefficient Variation 13.2 % (11.7-14.2); RDW Standard Deviation 42.9 fL (35.1-46.3); Red Blood Cell Count 3.62 M/mm3 (4.30-5.90); White Blood Cell Count 11.34 K/mm3 (4.00-11.30)
[2020-09-24 06:05] LABS: Anion Gap 2 mmol/L (6-16); Blood Urea Nitrogen 22 mg/dL (8-24); Bun/Creatinine Ratio 37.5 (12.0-20.0); CO2, Blood 29 mmol/L (21-32); Calcium, Blood 7.8 mg/dL (8.5-10.1); Chloride, Blood 107 mmol/L (98-108); Creatinine, Blood 0.59 mg/dL (0.60-1.20); Glomerular Filtration Rate >60 (60-); Glucose, Blood 250 mg/dL (70-99); Potassium, Blood 4.4 mmol/L (3.5-5.5); Sodium, Blood 138 mmol/L (136-145)
--- NOTE | 2020-09-24 07:49 | NUR ---
SHIFT SUMMARY: PATIENT IS A&OX4, UP TO THE BATHROOM INDEPENDANTLY WITH STEADY GAIT. THEIR IS LUMP ON TOP OF THE SCALP THAT IS RED AND DRAINING A SEROSANQIUNES FLUID. WOUND IS CLEANSED AND MEDPILEX IS APPLIED. DRSG TO R KNEE IS CD&I, L SHOULER DRSG IS CD&I AND R FOOT DRSG IS CD&I. DRSG CHANGE WAS DUE ON EVENING SHIFT, PATIENT REFUSED. DRAIN ON R SHOULDER HAS A DRSG COVERING THAT IS CD&I. NO BM IN MANY DAYS. SENNA AND DULCOLAX WERE GIVEN WITH NO EFFECT. PATIENT REFUSED PRN DULCOLAX SUPP, "I WANT TO WAIT UNTIL I AM MORE AWAKE SO I DON'T HAVE AND ACCIDENT". THIS IS REPORTED TO DAY SHIFT RN.
--- NOTE | 2020-09-24 19:24 | NUR ---
SHIFT SUMMARY PT A/O X4; PLEASANT AND COOPERATIVE WITH CARE. WOUNDS TO R FOOT, KNEE, NECK, AND TOP OF HEAD. DRESSINGS CHANGED AND CDI. PT MEDICATED FOR PAIN X2 THIS SHIFT. IND IN THE ROOM. HAD BM TODAY. VSS; WILL REPORT TO CLINICAL EDUCATION COORDINATOR RN.
[2020-09-25 05:17] LABS: BASOPHILS ABSOLUTE AUTO 0.03 K/mm3 (0.00-0.23); BASOPHILS PERCENT AUTO 0 % (0-2); EOSINOPHILS ABSOLUTE AUTO 0.32 K/mm3 (0.00-0.68); EOSINOPHILS PERCENT AUTO 4 % (0-6); Hematocrit 36.4 % (37.0-53.0); Hemoglobin 12.1 g/dL (13.5-17.5); IMMATURE GRAN ABSOLUTE AUTO 0.71 K/mm3 (0.00-0.10); IMMATURE GRAN PERCENT AUTO 8 % (0-1); LYMPHOCYTES ABSOLUTE AUTO 1.49 K/mm3 (0.84-5.20); LYMPHOCYTES PERCENT AUTO 17 % (21-46); MONOCYTES ABSOLUTE AUTO 0.69 K/mm3 (0.16-1.47); MONOCYTES PERCENT AUTO 8 % (4-13); Mean Corpuscular HGB 29.3 pg (26.0-34.0); Mean Corpuscular HGB Conc 33.2 g/dL (31.5-36.5); Mean Corpuscular Volume 88 fL (80-100); Mean Platelet Volume 8.8 fL (9.1-12.4); NEUTROPHILS ABSOLUTE AUTO 5.32 K/mm3 (1.96-9.15); NEUTROPHILS PERCENT AUTO 62 % (41-73); Platelet Count 290 K/mm3 (150-400); RDW Coefficient Variation 13.2 % (11.7-14.2); RDW Standard Deviation 42.8 fL (35.1-46.3); Red Blood Cell Count 4.13 M/mm3 (4.30-5.90); White Blood Cell Count 8.56 K/mm3 (4.00-11.30)
[2020-09-25 05:39] LABS: BAND PERCENT MAN 4 % (0-8); BASOPHILS PERCENT MAN 0 % (0-2); EOSINOPHILS ABSOLUTE MAN 0.51 K/mm3 (0.00-0.68); EOSINOPHILS PERCENT MAN 6 % (0-6); LYMPHOCYTES ABSOLUTE MAN 1.54 K/mm3 (0.84-5.20); LYMPHOCYTES PERCENT MAN 18 % (21-46); MONOCYTES ABSOLUTE MAN 0.34 K/mm3 (0.16-1.47); MONOCYTES PERCENT MAN 4 % (4-13); NEUTROPHILS ABSOLUTE MAN 6.16 K/mm3 (1.96-9.15); SEG NEUTROPHILS PERCENT MAN 68 % (41-73); TOTAL CELLS COUNTED 100
[2020-09-25 05:43] LABS: Anion Gap 5 mmol/L (6-16); Blood Urea Nitrogen 20 mg/dL (8-24); Bun/Creatinine Ratio 32.3 (12.0-20.0); CO2, Blood 26 mmol/L (21-32); Calcium, Blood 7.9 mg/dL (8.5-10.1); Chloride, Blood 106 mmol/L (98-108); Creatinine, Blood 0.62 mg/dL (0.60-1.20); Glomerular Filtration Rate >60 (60-); Glucose, Blood 301 mg/dL (70-99); Potassium, Blood 4.4 mmol/L (3.5-5.5); Sodium, Blood 137 mmol/L (136-145)
--- NOTE | 2020-09-25 07:33 | NUR ---
SHIFT SUMMARY: PATIENT IS A&OX4, CONTINUES TO REPORT NECK PAIN AT DRAIN SITE. ULTRAM AND TORADOL ARE ALTERNATED FOR FAIR AFFECT. NECK DRSG HAS SLIGHT SHADOWING, R FOOT AND KNEE DRSG ARE CD&I. PATIENT IS UP TO THE BATHROOM INDEPENDANTLY. PATIENT WAS IRRITABLE THIS SHIFT DUE TO BEING WOKEN AND STATED HE DID NOT WANT TO BE WOKE AGAIN THROUGH THE NIGHT.
[2020-09-25 09:48] LABS: Vancomycin, Trough 17.8 ug/mL (5.0-10.0)
--- NOTE | 2020-09-25 19:51 | NUR ---
SHIFT SUMMARY PT A/O X4 AND IND IN THE ROOM. PT CAN BE LABILE AT TIMES. DRESSING CHANGES X2 THIS SHIFT. WOUND ON NECK DRAINING A MODERATE AMOUNT OF SEROS FLUID. MEDICATED X1 FOR PAIN THIS SHIFT. VSS; REPORT GIVEN TO OUTSOLE TACKER RN.
[2020-09-26 05:13] LABS: Hematocrit 33.2 % (37.0-53.0); Hemoglobin 10.9 g/dL (13.5-17.5); Mean Corpuscular HGB 28.7 pg (26.0-34.0); Mean Corpuscular HGB Conc 32.8 g/dL (31.5-36.5); Mean Corpuscular Volume 87 fL (80-100); Mean Platelet Volume 8.7 fL (9.1-12.4); Platelet Count 259 K/mm3 (150-400); RDW Coefficient Variation 12.9 % (11.7-14.2); RDW Standard Deviation 41.3 fL (35.1-46.3); White Blood Cell Count 8.79 K/mm3 (4.00-11.30)
[2020-09-26 05:36] LABS: Alanine Aminotransfer (ALT/SGP 25 U/L (12-78); Albumin, Blood 1.6 g/dL (3.4-5.0); Albumin/Globulin Ratio 0.4 (0.8-1.8); Alk Phos 89 U/L (50-136); Anion Gap 5 mmol/L (6-16); Aspartate Aminotrans (AST/SGOT 22 U/L (12-37); Bilirubin, Total 0.3 mg/dL (0.1-1.0); Blood Urea Nitrogen 10 mg/dL (8-24); Bun/Creatinine Ratio 19.5 (12.0-20.0); CO2, Blood 27 mmol/L (21-32); Calcium, Blood 8.2 mg/dL (8.5-10.1); Chloride, Blood 107 mmol/L (98-108); Creatinine, Blood 0.51 mg/dL (0.60-1.20); Globulin, Blood 4.5 g/dL (2.2-4.0); Glomerular Filtration Rate >60 (60-); Glucose, Blood 190 mg/dL (70-99); Sodium, Blood 139 mmol/L (136-145); Total Protein, Blood 6.1 g/dL (6.4-8.2)
[2020-09-26 06:11] LABS: BAND PERCENT MAN 2 % (0-8); BASOPHILS ABSOLUTE MAN 0.17 K/mm3 (0.00-0.23); BASOPHILS PERCENT MAN 2 % (0-2); EOSINOPHILS ABSOLUTE MAN 0.35 K/mm3 (0.00-0.68); EOSINOPHILS PERCENT MAN 4 % (0-6); LYMPHOCYTES ABSOLUTE MAN 0.79 K/mm3 (0.84-5.20); LYMPHOCYTES PERCENT MAN 9 % (21-46); METAMYELOCYTE ABSOLUTE MAN 0.26 K/mm3 (0.00-0.00); METAMYELOCYTE PERCENT MAN 3 % (0-0); MONOCYTES ABSOLUTE MAN 0.52 K/mm3 (0.16-1.47); MONOCYTES PERCENT MAN 6 % (4-13); MYELOCYTE ABSOLUTE MAN 0.43 K/mm3 (0.00-0.00); MYELOCYTE PERCENT MAN 5 % (0-0); NEUTROPHILS ABSOLUTE MAN 6.24 K/mm3 (1.96-9.15); SEG NEUTROPHILS PERCENT MAN 69 % (41-73); TOTAL CELLS COUNTED 100
--- NOTE | 2020-09-26 06:43 | NUR ---
SHIFT SUMMARY: A&OX4, IRRITABLE ABOUT TORADOL BEING DC'C AT START OF SHIFT. MEDICATION EDUCATION WAS GIVEN. PATIENT THEN PATIENT WAS VERY COOPERATIVE WITH CARE. CONTINUES TO REPORT BURNING PAIN AT DRAIN SITE AND NECK. TRAMADOL AND TYLENOL GIVE FAIR EFFECT, PATIENT WAS ABLE TO SLEEP. RIGHT FOOT DRSG CHANGE WAS DONE, TOLERATED WELL. BLOOD GLUCOSE WAS 149, LONG ACTING INSULIN WAS GIVEN PER OCT AND 100% OF SNACK WAS EATEN.
[2020-09-26] MEDS ORDERED: ANORO ELLIPTA1 EACH INH (12:13)
[2020-09-26] MEDS ORDERED: LEVE500 PO (12:13)
[2020-09-26] MEDS ORDERED: ACET325 PO (12:14)
[2020-09-26] MEDS ORDERED: ALBU90OI INH (12:16)
[2020-09-26] MEDS ORDERED: ASPI81CH PO (12:17)
[2020-09-26] MEDS ORDERED: BACITO TOP (12:19)
[2020-09-26] MEDS ORDERED: DOCU100 PO (12:20)
[2020-09-26] MEDS ORDERED: BISA10S PR (12:20)
[2020-09-26] MEDS ORDERED: Nicoderm Cq1 EAC1 TOP (12:21)
[2020-09-26] MEDS ORDERED: SENN187 PO (12:21)
[2020-09-26] MEDS ORDERED: TIOT18 INH (12:25)
[2020-09-26] MEDS ORDERED: TRAM50 PO (12:26)
[2020-09-26] MEDS ORDERED: VISBIOME 112.51 EACH PO (12:27)
[2020-09-26] MEDS ORDERED: SULTRIDS PO (12:28)
[2020-09-26] MEDS ORDERED: NOVOLOG FL100 UNIT/3 (12:35)
[2020-09-26] MEDS ORDERED: LEVEMIR FL100 UNIT/2 SC (12:37)
--- NOTE | 2020-09-26 14:05 | NUR ---
PT DISCHARGED FROM THE UNIT. IV REMOVED. DISCHARGE INSTRUCTIONS REVIEWED. PT LEFT UNIT VIA WHEEL CHAIR. FRIEND TO DRIVE HIM HOME. MEDICATIONS SENT TO IVANIA FONG.
== END 2020-09-26 12:52 | disposition home or self-care (01) | DRG 854 ==
LOC: ER 07:40 → MEDS 10:34 → ENPENDDIS 09-26 12:23 → MEDS 09-26 12:52
PROVIDERS: Emergency Medicine; Family Medicine; Internal Medicine; Nurse Practitioner Acute Care; Surgery; ADMIT Hospitalist
PROC: 0J970ZZ Drainage of Back Subcutaneous Tissue and Fascia, Open Approach (ICD-10-PCS; principal; 2020-09-22 15:45)
PROC: 0J9N0ZZ Drainage of Right Lower Leg Subcutaneous Tissue and Fascia, Open Approach (ICD-10-PCS; 2020-09-22 15:45)
DX: A41.02 Sepsis due to Methicillin resistant Staphylococcus aureus (principal); L02.11 Cutaneous abscess of neck; L02.415 Cutaneous abscess of right lower limb; F31.9 Bipolar disorder, unspecified; I25.10 Atherosclerotic heart disease of native coronary artery without angina pectoris; J44.9 Chronic obstructive pulmonary disease, unspecified; F19.10 Other psychoactive substance abuse, uncomplicated; I10 Essential (primary) hypertension; B19.20 Unspecified viral hepatitis C without hepatic coma; E11.319 Type 2 diabetes mellitus with unspecified diabetic retinopathy without macular edema; E11.40 Type 2 diabetes mellitus with diabetic neuropathy, unspecified; E11.65 Type 2 diabetes mellitus with hyperglycemia; Z59.0 Homelessness; F17.210 Nicotine dependence, cigarettes, uncomplicated
CPT/HCPCS: 0241U; 36415; 73560-RT; 76882; 80048; 80053; 80061; 80202; 81001; 82010; 82800; 82947; 83605; 83690; 83735; 85025; 87040; 87070; 87075; 87077; 87086; 87147; 87186; 87205; 94640; 94760; 96361; 96365; 96375; 99284-25; A9270; J1100; J1650; J1885; J2370; J2405; J2704; J3010; J3370; J7030

== ENCOUNTER 2021-01-03 12:19 | Inpatient (IN) | payer MEDICARE, OTHER ==
[~2021-01-03] VITALS: Ht 177.8 cm; Wt 69.5 kg
[~2021-01-03 12:19] MED LIST changes: +ACET325 PO; +ANORO ELLIPTA1 EAC1 INH; +ANORO ELLIPTA1 EACH INH; +BACITO TOP; +BISA10S PR; +FLUTICASONE-SA1 EAC9 INH; +LEVE500 PO; +LEVEMIR FL100 UNIT/2 SC; +LEVEMIR100 UNIT/1 SC; +NOVOLOG FL100 UNIT/3; +ROPINIROLE HC0.25 M2 PO; +ROWEEPRA PO; +SENN187 PO; +SULTRIDS PO; +TIOT18 INH; +TRAM50 PO; +VISBIOME 112.51 EACH PO
[2021-01-03 13:50] LABS: BASOPHILS ABSOLUTE AUTO 0.07 K/mm3 (0.00-0.23); BASOPHILS PERCENT AUTO 0 % (0-2); EOSINOPHILS PERCENT AUTO 0 % (0-6); Hematocrit 39.5 % (37.0-53.0); Hemoglobin 13.1 g/dL (13.5-17.5); IMMATURE GRAN ABSOLUTE AUTO 0.36 K/mm3 (0.00-0.10); IMMATURE GRAN PERCENT AUTO 1 % (0-1); LYMPHOCYTES ABSOLUTE AUTO 0.52 K/mm3 (0.84-5.20); LYMPHOCYTES PERCENT AUTO 2 % (21-46); MONOCYTES ABSOLUTE AUTO 1.33 K/mm3 (0.16-1.47); MONOCYTES PERCENT AUTO 5 % (4-13); Mean Corpuscular HGB Conc 33.2 g/dL (31.5-36.5); Mean Corpuscular Volume 90 fL (80-100); Mean Platelet Volume 10.1 fL (9.1-12.4); NEUTROPHILS ABSOLUTE AUTO 23.21 K/mm3 (1.96-9.15); NEUTROPHILS PERCENT AUTO 91 % (41-73); Platelet Count 331 K/mm3 (150-400); RDW Coefficient Variation 13.4 % (11.7-14.2); RDW Standard Deviation 44.5 fL (35.1-46.3); Red Blood Cell Count 4.37 M/mm3 (4.30-5.90); White Blood Cell Count 25.49 K/mm3 (4.00-11.30)
[2021-01-03 14:16] LABS: Alanine Aminotransfer (ALT/SGP 60 U/L (12-78); Albumin, Blood 2.5 g/dL (3.4-5.0); Albumin/Globulin Ratio 0.4 (0.8-1.8); Alk Phos 190 U/L (50-136); Anion Gap 3 mmol/L (6-16); Aspartate Aminotrans (AST/SGOT 62 U/L (12-37); Bilirubin, Total 0.8 mg/dL (0.1-1.0); Blood Urea Nitrogen 20 mg/dL (8-24); Bun/Creatinine Ratio 26.5 (12.0-20.0); CO2, Blood 34 mmol/L (21-32); Calcium, Blood 9.2 mg/dL (8.5-10.1); Chloride, Blood 77 mmol/L (98-108); Creatinine, Blood 0.76 mg/dL (0.60-1.20); Globulin, Blood 5.7 g/dL (2.2-4.0); Glomerular Filtration Rate >60 (60-); Glucose, Blood 1253 mg/dL (70-99); Potassium, Blood 5.1 mmol/L (3.5-5.5); Sodium, Blood 114 mmol/L (136-145); Total Protein, Blood 8.2 g/dL (6.4-8.2)
[2021-01-03 15:07] LABS: Source, Urine Clean Catch
[2021-01-03 15:13] LABS: Appearance, Urine Hazy (Clear); Bilirubin, Urine Neg (Neg); Blood, Urine 4+ (Neg); Color, Urine Yellow (P-Yellow); Glucose Qualitative, Urine 4+ (Neg); Ketones, Urine Neg (Neg); Leukocyte Esterase, Urine 3+ (Neg); Nitrite, Urine Neg (Neg); Protein, Urine 1+ (Neg); Specific Gravity, Urine 1.005 (1.003-1.022); Urobilinogen, Urine NORM (Normal)
[2021-01-03 15:30] LABS: Bacteria Mod /hpf; Squamous Epithelial Cells Not Seen /hpf (Few); White Blood Cells, Urine TNTC /hpf (0-5)
[2021-01-03 16:25] LABS: U Amphetamine Screen DETECTED; U Barbituate Screen Not Detected; U Benzodiazapine Screen Not Detected; U Buprenorphine Screen Not Detected; U Cannabinoids Screen DETECTED; U Cocaine Screen Not Detected; U Methadone Screen Not Detected; U Methamphetamine Screen DETECTED; U Opiates Screen Not Detected; U Oxycodone Screen Not Detected; U Phencyclidine Screen Not Detected; U Propoxyphene Screen Not Detected
[2021-01-03 20:41] LABS: Glucose, Blood 657 mg/dL (70-99)
[2021-01-03 21:17] LABS: Source, Urine Catheter
[2021-01-03 21:20] LABS: Bilirubin, Urine Neg (Neg); Blood, Urine 4+ (Neg); Glucose Qualitative, Urine 4+ (Neg); Ketones, Urine 1+ (Neg); Leukocyte Esterase, Urine 1+ (Neg); Nitrite, Urine Neg (Neg); Protein, Urine 2+ (Neg); Urobilinogen, Urine NORM (Normal)
[2021-01-03 21:25] LABS: Glucose, Blood 607 mg/dL (70-99)
[2021-01-03 21:26] LABS: Appearance, Urine Clear (Clear); Color, Urine Pale Yellow (P-Yellow); White Blood Cells, Urine 25-50 /hpf (0-5)
[2021-01-03 21:27] LABS: Bacteria Mod /hpf; Squamous Epithelial Cells Not Seen /hpf (Few)
--- NOTE | 2021-01-03 21:30 | NUR ---
PT ADMITTED TO ROOM ICU 10 FROM ED. REPORT RECEIVED. PT ARRIVES TO ROOM AT 2019. PT SLIDE TRANSFERRED TO BED. PT PRESENTS CONFUSED. PULLING AT LINES. PT VERY IMPULSIVE AND HAS DIFFICULTY WITH UNDERSTANDING URINAL. DOES JUST URINATE UPON HIMSELF AND BEDDING. DID PLACE 16 KOREAN HUBBARD CATHETER FOR CLOSE MONITORING ON FLUID BALANCE. PT TOLERATED FAIR. HAVE PLACED SOFT BI LATERAL WRIST RESTRAINTS SECONDARY TO PT PULLING AT IV'S AND MONITOR WIRES. ALSO TO PROTECT HUBBARD CATHETER. WILL REVIEW CHART AND PLAN OF CARE FOR THIS PT.
[2021-01-03 23:32] LABS: Anion Gap 2 mmol/L (6-16); Blood Urea Nitrogen 19 mg/dL (8-24); Bun/Creatinine Ratio 25.1 (12.0-20.0); CO2, Blood 35 mmol/L (21-32); Chloride, Blood 96 mmol/L (98-108); Creatinine, Blood 0.76 mg/dL (0.60-1.20); Glomerular Filtration Rate >60 (60-); Glucose, Blood 498 mg/dL (70-99); Potassium, Blood 4.5 mmol/L (3.5-5.5)
[2021-01-03 23:33] LABS: Sodium, Blood 133 mmol/L (136-145)
--- NOTE | 2021-01-03 23:57 | NUR ---
HAVE MEDICATED PT ONCE WITH 2 MG ATIVAN FOR S/S ETOH W/D'S. PT CONTINUES ON INSULIN DRIP AT 3 UNITS PER HOUR. LAB DRAW GLUCOSE LEVELS DONE SECONDARY TO ONGOING VALUES > 500. PT'S LEFT HAND WITH SWELLING, REDNESS, AND OPEN AREA. PT NOT ABLE TO ASSIST WITH HISTORY OR ANSWER ANY QUESTIONS TO WHEN THIS BEGAN. PT DOES HAVE SOME PUSTULES UNDER LEFT ARM. WILL CONTINUE TO MONITOR. NO S/S ADVERSE REACTIONS TO ANTIBIOTIC THERAPIES TO NOTE.
[2021-01-04 02:37] LABS: BASOPHILS ABSOLUTE AUTO 0.06 K/mm3 (0.00-0.23); BASOPHILS PERCENT AUTO 0 % (0-2); EOSINOPHILS ABSOLUTE AUTO 0.03 K/mm3 (0.00-0.68); EOSINOPHILS PERCENT AUTO 0 % (0-6); Hematocrit 33.1 % (37.0-53.0); Hemoglobin 11.9 g/dL (13.5-17.5); IMMATURE GRAN ABSOLUTE AUTO 0.21 K/mm3 (0.00-0.10); IMMATURE GRAN PERCENT AUTO 1 % (0-1); LYMPHOCYTES ABSOLUTE AUTO 1.41 K/mm3 (0.84-5.20); LYMPHOCYTES PERCENT AUTO 6 % (21-46); MONOCYTES ABSOLUTE AUTO 1.23 K/mm3 (0.16-1.47); MONOCYTES PERCENT AUTO 5 % (4-13); Mean Corpuscular HGB 30.1 pg (26.0-34.0); Mean Platelet Volume 9.2 fL (9.1-12.4); NEUTROPHILS ABSOLUTE AUTO 20.93 K/mm3 (1.96-9.15); NEUTROPHILS PERCENT AUTO 88 % (41-73); Platelet Count 290 K/mm3 (150-400); RDW Coefficient Variation 12.9 % (11.7-14.2); RDW Standard Deviation 38.9 fL (35.1-46.3); Red Blood Cell Count 3.96 M/mm3 (4.30-5.90); White Blood Cell Count 23.87 K/mm3 (4.00-11.30)
[2021-01-04 02:38] LABS: Mean Corpuscular Volume 84 fL (80-100)
[2021-01-04 02:55] LABS: Alanine Aminotransfer (ALT/SGP 47 U/L (12-78); Albumin/Globulin Ratio 0.4 (0.8-1.8); Alk Phos 122 U/L (50-136); Anion Gap 0 mmol/L (6-16); Aspartate Aminotrans (AST/SGOT 48 U/L (12-37); Bilirubin, Total 0.4 mg/dL (0.1-1.0); Blood Urea Nitrogen 17 mg/dL (8-24); CO2, Blood 36 mmol/L (21-32); Calcium, Blood 8.8 mg/dL (8.5-10.1); Chloride, Blood 99 mmol/L (98-108); Creatinine, Blood 0.68 mg/dL (0.60-1.20); Glomerular Filtration Rate >60 (60-); Glucose, Blood 321 mg/dL (70-99); Potassium, Blood 4.4 mmol/L (3.5-5.5); Sodium, Blood 135 mmol/L (136-145)
--- NOTE | 2021-01-04 06:01 | NUR ---
PT HAS BEEN MEDICATED SEVERAL TIMES WITH ATIVAN 2 MG FOR INCREASING CONFUSION AND CIWA SCORING. PT HAS ATTEMPTED TO PULL AT HIS HUBBARD CATHETER. STATES HE BELIEVES HE IS IN [place], [place]. REORIENTED PT TO PLACE AND WHY HE IS HERE. PT HAS REQUIRED 2 - 4 LITERS OXYGEN WHILE HE SLEEPS SECONDARY TO A SLEEP - APNEA TYPE RESIRATORY PATTERN. WITHOUT SUPPLEMENTAL OXYGEN PT WOULD DESATRURATE INTO LOW TO MID 80 PERCENTS. WILL CONTINUE TO MONITOR PT, AND WILL REPORT OFF TO ONCOMING RN.
[2021-01-04 06:53] LABS: Anion Gap -2 mmol/L (6-16); Blood Urea Nitrogen 17 mg/dL (8-24); Bun/Creatinine Ratio 24.4 (12.0-20.0); CO2, Blood 38 mmol/L (21-32); Calcium, Blood 9.1 mg/dL (8.5-10.1); Chloride, Blood 100 mmol/L (98-108); Glomerular Filtration Rate >60 (60-); Glucose, Blood 165 mg/dL (70-99); Potassium, Blood 4.2 mmol/L (3.5-5.5); Sodium, Blood 136 mmol/L (136-145)
--- NOTE | 2021-01-04 17:05 | NUR ---
REASSESSMENT PT REMAINS RESPONSIVE TO VOICE, CONFUSED, COMMONLY MUMBLES INCOHERANTLY. DR DOTSON JUST FINISHED BEDSIDE I/D OF LEFT HAND AND APPLIED PACKING AND DRESSING. PT ABLE TO FOLLOW COMMANDS. PT HAS MOSTLY BEEN QUIET AND RESTING THIS AFTERNOON. TEMP TRENDING UPWARDS. SINUS TACH ON THE MONITOR. PLAN TO HAVE PT NPO AFTER MIDNIGHT FOR SURGICAL I/D IN AM.
[2021-01-04 17:43] LABS: Vancomycin, Trough 11.3 ug/mL (5.0-10.0)
--- NOTE | 2021-01-04 18:34 | NUR ---
SHIFT SUMMARY PT INTERMITTANTLY ALERT, ORIENTED TO PERSON AND KNEW HE WAS IN A HOSPITAL. AT TIMES PT WOULD SPEAK CLEARLY, MOST OF THE DAY PT WOULD MUMBLE INCOHERANTLY. INSULIN GTT TITRATED OFF THIS MORNING. CBG STARTED TO TREND UPWARDS THIS EVENING. PT ONLY EATING PART OF MEALS. BEDSIDE I/D PERFORMED BY DR DOTSON OF THE LEFT HAND. PLANNED OR IN AM. TEMP STARTED TO INCREASE THIS AFTERNOON. SINUS TACH ON THE MONITOR, OTHER VITALS HAVE REMAINED STABLE.
--- NOTE | 2021-01-04 18:43 | NUR ---
PT ARRIVAL TO UNIT PT ARRIVED TO UNIT. VS STABLE. BED ALARM IN PLACE FOR PT SAFETY. WILL CONTINUE TO MONITOR UNTIL REPORT GIVEN TO NIGHTSHIFT RN.
--- NOTE | 2021-01-05 05:11 | NUR ---
SHIFT SUMMARY PATIENT FOUND TO BE A&OX2, ANXIOUS, CARPIO, AND ANXIOUS. FREQUENT MOANING NOTED. GARBLED SPEECH. VSS. ST IN LOW 100'S ON THE MONITOR. ON RA. DID NOT FEEL COMFORTABLE GIVING ATIVAN D/T PATIENT LETHARGIC STATE IS NOT APPROPRIATE INTERVENTION. MORE OF A METH CRASH THEN ALCOHOL WITHDRAWAL. IV FLUIDS AND ABX RUNNING PER ORDER. BEDREST. FALL PRECAUTIONS IN PLACE. MADE NPO AFTER MIDNIGHT FOR POSSIBLE DEBRIDMENT TODAY. FULL FEED OTHERWISE D/T HAND WRAP CANNOT HOLD UTENSILS. HUBBARD CATH PATENT DRAINING DEE URINE. SCATTERED ABRASIONS NOTED. NO ACUTE CONCERNS AT THIS TIME. WILL CONTINUE TO MONITOR.
[2021-01-05 08:00] LABS: BASOPHILS ABSOLUTE AUTO 0.07 K/mm3 (0.00-0.23); BASOPHILS PERCENT AUTO 0 % (0-2); EOSINOPHILS ABSOLUTE AUTO 0.05 K/mm3 (0.00-0.68); EOSINOPHILS PERCENT AUTO 0 % (0-6); Hematocrit 32.3 % (37.0-53.0); Hemoglobin 11.3 g/dL (13.5-17.5); IMMATURE GRAN ABSOLUTE AUTO 0.25 K/mm3 (0.00-0.10); IMMATURE GRAN PERCENT AUTO 1 % (0-1); LYMPHOCYTES ABSOLUTE AUTO 1.05 K/mm3 (0.84-5.20); LYMPHOCYTES PERCENT AUTO 4 % (21-46); MONOCYTES ABSOLUTE AUTO 1.07 K/mm3 (0.16-1.47); MONOCYTES PERCENT AUTO 4 % (4-13); Mean Corpuscular HGB 30.2 pg (26.0-34.0); Mean Corpuscular Volume 86 fL (80-100); Mean Platelet Volume 9.2 fL (9.1-12.4); NEUTROPHILS ABSOLUTE AUTO 22.66 K/mm3 (1.96-9.15); NEUTROPHILS PERCENT AUTO 90 % (41-73); Platelet Count 244 K/mm3 (150-400); RDW Coefficient Variation 12.8 % (11.7-14.2); RDW Standard Deviation 40.4 fL (35.1-46.3); Red Blood Cell Count 3.74 M/mm3 (4.30-5.90); White Blood Cell Count 25.15 K/mm3 (4.00-11.30)
[2021-01-05 08:22] LABS: Anion Gap 4 mmol/L (6-16); Blood Urea Nitrogen 14 mg/dL (8-24); Bun/Creatinine Ratio 20.8 (12.0-20.0); CO2, Blood 29 mmol/L (21-32); Calcium, Blood 8.3 mg/dL (8.5-10.1); Chloride, Blood 98 mmol/L (98-108); Creatinine, Blood 0.67 mg/dL (0.60-1.20); Glomerular Filtration Rate >60 (60-); Glucose, Blood 349 mg/dL (70-99); Potassium, Blood 4.3 mmol/L (3.5-5.5); Sodium, Blood 131 mmol/L (136-145)
[2021-01-05 10:11] LABS: SARS-Cov-2 (COVID-19) PCR, MMC NEGATIVE (NEGATIVE)
--- NOTE | 2021-01-05 10:52 | NUR ---
UPDATE PHYSICIAN TO SEE PT. ORDERS FOR COVID SWAB FOR PRE-PROCEDURE ORDERED AND SENT TO LAB. PHYSICIAN REQUESTS TO HAVE PT MOVED TO CHAIR. PT MAX ASSIST WITH GAIT BELT D/T WEAK GAIT. PT UNABLE TO TOLERATE SITTING IN CHAIR. CONTINUES TO ATTEMPT TO STAND UP D/T PAIN. PT MOVED BACK TO BED. PHYSICIAN NOTIFIED OF PT'S INCREASE IN PAIN. MEDICATIONS ORDERED, SEE EMAR. SURGEON REQUESTED FOR PT TO SOAK HAND IN WARM STERILE WATER. ATTEMPTED TO ASSIST PT IN HAND SOAK. UNABLE TO TOLERATE AT THIS TIME. PT'S L HAND RE-DRESSED WITH STERILE GAUZE AND MICHAEL BANDAGE. BED ALARM IN PLACE. WILL CONTINUE TO MONITOR.
--- NOTE | 2021-01-05 15:04 | NUR ---
UPDATE REPORT GIVEN TO MEDARDO RIOS. CALL RECIEVED FROM DAY SURGERY. PLAN FOR PT TO GO TO SURGICAL BED AFTER PROCEDURE IN DAY SURGERY.
--- NOTE | 2021-01-05 16:27 | NUR ---
PATIENT WAS BROUGHT TO D/S FOR HIS PROCEDURE.Maday Paws warming gown applied. History, Chart, Medications and Allergies reviewed before start of procedure.Lungs clear T/O to Auscultation. Patient confirms NPO status and agrees with scheduled surgery.
--- NOTE | 2021-01-05 16:33 | NUR ---
01/05/21 1633 Elizabet Loredo PT ENTERED OR WITH HUBBARD, NO PREOP ANTIBIOTICS ORDERED
--- NOTE | 2021-01-06 02:56 | NUR ---
I CALLED DR ESTES AND REPORTED LABS.FOLLOW UP HEMOGRAM ORDERED FOR 0800.
[2021-01-06 05:59] LABS: Hematocrit 32.6 % (37.0-53.0); Hemoglobin 11.3 g/dL (13.5-17.5)
[2021-01-06 06:41] LABS: Anion Gap 6 mmol/L (6-16); Blood Urea Nitrogen 19 mg/dL (8-24); Bun/Creatinine Ratio 27.3 (12.0-20.0); CO2, Blood 27 mmol/L (21-32); Calcium, Blood 8.1 mg/dL (8.5-10.1); Chloride, Blood 99 mmol/L (98-108); Glomerular Filtration Rate >60 (60-); Glucose, Blood 287 mg/dL (70-99); Potassium, Blood 4.4 mmol/L (3.5-5.5); Sodium, Blood 132 mmol/L (136-145)
--- NOTE | 2021-01-06 08:13 | NUR ---
SUMMARY PT SLEPT OFF AND ON TONIGHT. CIRC CKS ITNACT. TOLERATING PO.
--- NOTE | 2021-01-06 11:42 | NUR ---
PATIENT'S BLOOD SUGAR WAS 375 WHEN CHECKED BEFORE LUNCH. CALLED DR. THOMPSON AND NOTIFIED HER OF THIS READING. SHE STATED TO WAIT AND HAVE IT RE-CHECKED AT 1400 LATER TODAY. PATIENT IS ALERT AND ORIENTED X4 AND IS RESTING IN BED. CALL LIGHT IS WITHIN REACH. WILL CONTINUE TO MONITOR.
--- NOTE | 2021-01-06 11:45 | NUR ---
DR. DOTSON CAME IN TODAY AND TOOK OFF HIS DRESSING ON THE LEFT HAND. HIS HAND WAS SOAKED IN LUKEWARM WATER FOR ABOUT 20 MINS AND RE-WRAPPED WITH GAUZE AND MICHAEL WRAP. DR. DOTSON WOULD LIKE TO HAVE HIS WOUND SOAKED FOR 20 MINS AND THEN REWRAPPED DAILY. PATIENT TOLERATED THIS WELL. CALL LIGHT WITHIN REACH.
[2021-01-06 14:59] LABS: SARS-Cov-2 (COVID-19) PCR, MMC NEGATIVE (NEGATIVE)
--- NOTE | 2021-01-06 15:13 | NUR ---
SHIFT SUMMARY: POD 2 IRRIGATION/DEBRIDEMENT OF LEFT HAND PATIENT IS ALERT AND ORIENTED X4 WHILE AWAKE. HE HAS BEEN TAKING ON/OFF NAPS THIS EVENING. VS ARE WNL AND IS ON RA. PAIN IS MANAGED WITH 1 NORCO PO. LEFT HAND WAS CHANGED EARILER IN THE SHIFT BY DR. DOTSON. PATIENTS LEFT HAND IS HAS GAUZE AND MICHAEL WRAP. HE IS ABLE TO WIGGLE FINGERS AND TOES WHEN ASKED. HE IS TOLERATING PO INTAKE. HE HAS A HUBBARD IN PLACE AND IS DARK YELLOW URINE DRAINING PER GRAVITY. HE IS CURRENTLY LAYING IN BED. CALL LIGHT WITHIN REACH. THE PLAN IS TO HAVE SURGERY TOMORROW FOR ANOTHER I&D OF THE LEFT HAND AND TO CONTINUE ABX.
--- NOTE | 2021-01-06 15:27 | NUR ---
PATIENTS BLOOD SUGAR WAS JUST RECHECKED AND IT WAS 366. CALLED HOSPITALIST AND SHE SAID TO CONTINUE MONITORING BLOOD SUGARS SINCE SHE WILL BE ADJUSTING SLIDING SCALE EITHER LATER TODAY OR TOMORROW. PATIENT IS LAYING IN BED ALERT AND ORIENTED. CALL LIGHT WITHIN REACH.
--- NOTE | 2021-01-06 20:53 | NUR ---
PT TO CT ABOUT 1945, BACK AROUND 2014. LINENS CHANGED, PT MEDICATED, PT RESTING IN BED AT THIS TIME.
--- NOTE | 2021-01-07 03:52 | NUR ---
SHIFT SUMMARY PT HAS BEEN A/O X4 OVERNIGHT. HAD CT SCANS AT START OF SHIFT. PT HAS BEEN NPO SINCE MIDNIGHT FOR SURGERY TODAY. PAIN MANAGED WITH NORCO PER ORDERS. BANDAGE TO L HAND CDI, CIRC CHECKS WNL. HUBBARD IN PLACE OVERNIGHT DRAINING DARK YELLOW URINE. NO ACUTE CHANGES THIS SHIFT. PT RESTING IN BED, CALL LIGHT IN REACH.
[2021-01-07 06:50] LABS: BASOPHILS ABSOLUTE AUTO 0.08 K/mm3 (0.00-0.23); BASOPHILS PERCENT AUTO 1 % (0-2); EOSINOPHILS ABSOLUTE AUTO 0.19 K/mm3 (0.00-0.68); EOSINOPHILS PERCENT AUTO 1 % (0-6); Hemoglobin 11.5 g/dL (13.5-17.5); IMMATURE GRAN ABSOLUTE AUTO 0.29 K/mm3 (0.00-0.10); IMMATURE GRAN PERCENT AUTO 2 % (0-1); LYMPHOCYTES ABSOLUTE AUTO 1.27 K/mm3 (0.84-5.20); LYMPHOCYTES PERCENT AUTO 9 % (21-46); MONOCYTES ABSOLUTE AUTO 0.95 K/mm3 (0.16-1.47); MONOCYTES PERCENT AUTO 7 % (4-13); Mean Corpuscular HGB 29.4 pg (26.0-34.0); Mean Corpuscular HGB Conc 33.8 g/dL (31.5-36.5); Mean Corpuscular Volume 87 fL (80-100); Mean Platelet Volume 8.9 fL (9.1-12.4); NEUTROPHILS ABSOLUTE AUTO 10.78 K/mm3 (1.96-9.15); NEUTROPHILS PERCENT AUTO 80 % (41-73); Platelet Count 288 K/mm3 (150-400); RDW Coefficient Variation 12.9 % (11.7-14.2); RDW Standard Deviation 40.9 fL (35.1-46.3); Red Blood Cell Count 3.91 M/mm3 (4.30-5.90); White Blood Cell Count 13.56 K/mm3 (4.00-11.30)
[2021-01-07 07:08] LABS: Anion Gap 2 mmol/L (6-16); Blood Urea Nitrogen 19 mg/dL (8-24); Bun/Creatinine Ratio 28.3 (12.0-20.0); CO2, Blood 31 mmol/L (21-32); Calcium, Blood 8.4 mg/dL (8.5-10.1); Chloride, Blood 100 mmol/L (98-108); Creatinine, Blood 0.67 mg/dL (0.60-1.20); Glomerular Filtration Rate >60 (60-); Glucose, Blood 258 mg/dL (70-99); Potassium, Blood 4.1 mmol/L (3.5-5.5); Sodium, Blood 133 mmol/L (136-145)
--- NOTE | 2021-01-07 16:31 | NUR ---
SHIFT SUMMARY PT A&OX4, VSS, S/P L HAND I&D, DRESSING CDI, ELEVATED ON PILLOWS. PAIN MANAGED WITH 5 MG NORCO. ROBERTO PO, DENIES N&V. VOIDING WELL USING URINAL. AMB SBA W/FWW & GB TO BRP; SHOWERED TODAY. PLAN FOR NPO SATURDAY TO RETURN TO OR FOR ANOTHER I&D PER DR MCMAHON. WILL REPORT TO NEXT RN.
--- NOTE | 2021-01-07 17:00 | NUR ---
TELEPHONE CALL TO HOSPITALIST R/T CBG >500 AND LAB DRAW TO VERIFY GLUCOSE NUMBER. NO NEW ORDERS GIVEN.
--- NOTE | 2021-01-07 17:25 | NUR ---
ASSUMPTION OF CARE ASSUMED CARE OF PT. BEDSIDE REPORT GIVEN. HE IS AAO X 4. SITTING UP IN HIS BED. LEFT HAND ELEVATED ON A PILLOW. PT CONTINUED TO ASK FOR FOOD. CALL LIGHT WITHIN REACH.
[2021-01-07 17:54] LABS: Glucose, Blood 715 mg/dL (70-99)
--- NOTE | 2021-01-07 18:09 | NUR ---
SPOKE WITH DR PLUNKETT REGARDING GLUCOSE OF 715. ORDERS RECIEVED TO FINGER STICK CBG AT 1900 AND MEDICATE THE PATIENT PER MEDIUM SLIDING SCALE. PT CURRENTLY AA0X4, SITTING UP IN BED REQUESTING MORE SNACKS AND EATING DINNER.
--- NOTE | 2021-01-07 19:36 | NUR ---
RECHECKED GLUCOSE AT 1900 GREATER THAN 500. LAB INTO DRAW GLUCOSE. MEDICATED PATIENT WITH MED SLIDING SCALE PER EMAR. MEDICATION GIVEN PER DR. ERNANDEZ ORDERS. REPORT GIVEN TO NEXT RN.
[2021-01-07 19:59] LABS: Glucose, Blood 652 mg/dL (70-99)
--- NOTE | 2021-01-07 22:14 | NUR ---
ASSUMED CARE AT 1899. PT A/O X4, AGITATED, RESTING IN BED S/P L HAND I&D. 1929 - PT REQUESTING GRAHM CRACKERS AND JUICE. DISCUSSED HIGH BLOOD GLUCOSE, PROVIDED EDUCATION REGARDING FOODS THAT INCREASE GLUCOSE. WATER PROVIDED. 1954 - CRITICAL HIGH GLUCOSE OF 652 AND POSITIVE BLOOD CULTURES. HOSPITALIST ON FLOOR; DISCUSSED THESE RESULTS. ORDERS OBTAINED FOR Q4 CBG + HUMULOG UNTIL CBG UNDER 300. NPO EXCEPT WATER UNTIL CBG UNDER 300. ORDERS ALSO OBTAINED TO INCREASE PAIN MEDICATION. DISCUSSED THESE CHANGES WITH PT. PT MEDICATED FOR PAIN. 2144 - PT SLEEPING.
--- NOTE | 2021-01-08 04:17 | NUR ---
SHIFT SUMMARY PT HAS BEEN A/O X4 OVERNIGHT. S/P 2ND I&D OF L HAND. PAIN MANAGED WITH PO NORCO, IV DILUADED PRN, AND ATIVAN FOR ANXIETY. PT HAD CRITICAL BLOOD GLUCOSE AT START OF SHIFT, SEE PREVIOUS NOTE. MOST RECENT CBG WAS 221; CBG AND HUMALOG CHANGED BACK TO PREVIOUS AC/HS ORDERS. DRESSING TO L HAND CDI OVERNIGHT. PT TOLERATING PO INTAKE AND VOIDING. RESTING IN BED AT THIS TIME.
[2021-01-08 06:10] LABS: BASOPHILS ABSOLUTE AUTO 0.03 K/mm3 (0.00-0.23); BASOPHILS PERCENT AUTO 0 % (0-2); EOSINOPHILS ABSOLUTE AUTO 0.08 K/mm3 (0.00-0.68); EOSINOPHILS PERCENT AUTO 1 % (0-6); Hematocrit 30.6 % (37.0-53.0); Hemoglobin 10.4 g/dL (13.5-17.5); IMMATURE GRAN ABSOLUTE AUTO 0.32 K/mm3 (0.00-0.10); IMMATURE GRAN PERCENT AUTO 2 % (0-1); LYMPHOCYTES ABSOLUTE AUTO 1.38 K/mm3 (0.84-5.20); LYMPHOCYTES PERCENT AUTO 11 % (21-46); MONOCYTES ABSOLUTE AUTO 1.02 K/mm3 (0.16-1.47); MONOCYTES PERCENT AUTO 8 % (4-13); Mean Corpuscular HGB 29.4 pg (26.0-34.0); Mean Corpuscular Volume 86 fL (80-100); Mean Platelet Volume 9.1 fL (9.1-12.4); NEUTROPHILS ABSOLUTE AUTO 10.27 K/mm3 (1.96-9.15); NEUTROPHILS PERCENT AUTO 79 % (41-73); Platelet Count 281 K/mm3 (150-400); RDW Coefficient Variation 12.6 % (11.7-14.2); RDW Standard Deviation 40.4 fL (35.1-46.3); Red Blood Cell Count 3.54 M/mm3 (4.30-5.90)
[2021-01-08 07:02] LABS: Vancomycin, Trough 19.1 ug/mL (5.0-10.0)
--- NOTE | 2021-01-08 14:31 | NUR ---
DR MCMAHON DRAINED HEAD ABSCESS AND PACKED IT AT BEDSIDE.
--- NOTE | 2021-01-08 14:43 | NUR ---
DR MCMAHON ASSESSED LEFT HAND, SOAKED IN NS WATER AND FLUSHED THE WATER ONTO WOUND. GAVE VERBAL ORDER TO SOAK/FLUSH FOR 20 MIN Q6H. LEFT HAND REDRESSED WITH EXUDRY, GAUZE AND MICHAEL WRAP.
--- NOTE | 2021-01-08 15:41 | NUR ---
SHIFT SUMMARY PT A&OX4, VSS/RA, VOIDING WELL, ROBERTO PO, PAIN MANAGED PER EMAR, AMB SBA W/FWW TO BRP, SHOWERED TODAY, UP TO CHAIR FOR MEALS. DR MCMAHON DRAINED HEAD ABSCESS AND APPLIED PACKING AND DRESSING, AND ASSESSED LEFT HAND, SOAKED/IRRIGATED IN NS WATER 20 MIN, REDRESSED WITH EXUDRY/GAUZE/ACEWRAP. GAVE NEW ORDER TO SOAK LEFT HAND Q6H AND REDRESS. LEFT HAND ELEVATED ON PILLOWS. WILL REPORT TO ONCOMING NOC RN.
--- NOTE | 2021-01-08 20:57 | NUR ---
ASSUMED CARE AT 1900. PT A/O X4, DROWSY, RESTING IN BED. EVENING CBG WAS 79. PT REPORTS THIS IS VERY LOW FOR HIM. PT GIVEN SOME CRACKERS AND ENSURE. HELD EVENING HUMALOG. PT STATES HE JUST WANTS TO SLEEP AND BE LEFT ALONE. CALL LIGHT IN REACH.
--- NOTE | 2021-01-09 04:27 | NUR ---
SHIFT SUMMARY PT HAS BEEN A/O X4. REPOSITIONING SELF IN BED, SBA UP TO CHAIR. PAIN MANAGED WITH NORCO X2. ALSO MEDICATED WITH ATIVAN PRN FOR ANXIETY/AGITATION. DRESSING TO L HAND CDI OVERNIGHT. HAS BEEN NPO SINCE MIDNIGHT FOR POSSIBLE PROCEDURE TODAY. PT IS RESTING IN BED AT THIS TIME, CALL LIGHT IN REACH.
--- NOTE | 2021-01-09 05:31 | NUR ---
PT REMOVED DRESSING ON BACK OF HEAD. REPLACED WITH GAUZE AND WRAPPED.
--- NOTE | 2021-01-09 13:53 | NUR ---
Met with pt at 11am today, after chart review completed. Pt is alert, oiriented and pleasant at this visit. He veronica himelsf Preacher Eriberto. He is laying back in bed, his L abcessed hand is soaking in a tub of water beside him. He just had a dose of dilaudid, and is beginning to doze off a little bit. He also tells me he lost his , stating, "She of cancer". He states they were for 16 years, with 4 sons, who have all since commited suidide with the youngest one committing sucicide in past year. Provided therapeutic listening. Pt states the family had decided to "sell eveything they owned so they could live among the homeless to eat like them, live like them, and be able to pray with them." I did not ask for any further details related to pt's family. The surgical floor RN states the is on his way to see pt's abcess on L hand. Will check in with pt in 1-2 days, and again as needed.
--- NOTE | 2021-01-09 18:21 | NUR ---
SHIFT SUMMARY PATIENT RESPONDS APPROPRIATELY WHEN AWAKE. SEVERE PAIN DIFFICULT TO MANAGE THROUGHOUT SHIFT. MEDICATED WITH NORCO AND DILAUDID PER EMAR. LEFT HAND WOUND EXAMINED BY ORTHO TODAY. IRRIGATED AND DRESSING CHANGED. PT REPORTED INCREASED LEFT LOWER ABD PAIN AND INABILITY TO HAVE A BOWEL MOVEMENT. GAVE MAG CITRATE. NO BOWEL MOVEMENT AT THIS TIME. WOUND TO BACK OF HEAD OPEN TO AIR AND SHOWS SMALL AMOUNT OF PURULENT DISCHARGE. UNABLE TO TOLERATE DIET DUE TO NAUSEA THROUGHOUT SHIFT. GOALS ARE PAIN CONTROL, BOWEL MOVEMENT, AND RETURN TO OR FOR I&D WITH ORTHO 01/09/21.
[2021-01-09 19:26] LABS: Creatinine, Blood 0.52 mg/dL (0.60-1.20)
--- NOTE | 2021-01-10 04:24 | NUR ---
SHIFT SUMMARY POD3 L HAND I&D X2, A/O X4, VSS, TOLERATING PO BUT NPO SINCE MIDNIGHT, INDEPENDENT IN ROOM, PT NOW PASSING FLATUS BUT NO BM THIS SHIFT. HAND DRESSING CHANGED OUT, WOUND SOAKED AND FLUSHED PER ORDER, PT ORIGINALLY REFUSED ASSESSMENT AND DRESSING CHANGE AT START OF SHIFT DURING SHIFT ASSESSMENT BUT WAS COMPLIANT LATER. NO ACUTE EVENTS THIS SHIFT. CALL LIGHT IN REACH, WILL CONTINUE TO MONITOR AND REPORT TO ONCOMING DAY RN.
--- NOTE | 2021-01-10 09:20 | NUR ---
ENEMA PT WAS WRITHING IN BED C/O SEVERE PAIN IN LLQ. REPORTS PASSING SOME GAS. ABD FIRM. IV & PO MEDS GIVEN. MD ROUNDS AND, AT TIME, PT IS AGREEABLE TO ENEMA W/ DECOMPACTION. WHEN ENEMA ARRIVED FROM PHARMACY 7 THIS RN ENTERED ROOM. PT WAS SMILING & WATCHING TV. REPORTS PASSING A LOT OF GAS & REFUSES ENEMA. DISCUSSED IMPORTANCE OF HAVING BM. PT COMPRIMISES & TAKES MOM, BUT CONINUES TO REFUSE ENEMA. ENCOURAGED PT TO THINK ABOUT ALLOWING ENEMA AFTER OR TODAY. STATES HE WILL THINK ABOUT IT.
--- NOTE | 2021-01-10 12:20 | NUR ---
PT TO OR
--- NOTE | 2021-01-10 12:27 | NUR ---
REPORT GIVEN TO RENAN BATRES
--- NOTE | 2021-01-10 12:55 | NUR ---
PATIENT HAS BEGUN TO MOAN IN PAIN STATING NEW ONSET 10/10 PAIN TO LLQ ABDOMEN AND MASS TO RIGHT UPPER CHEST WALL. DR FRIED AT BEDSIDE SPEAKING TO PATIENT.
--- NOTE | 2021-01-10 13:16 | NUR ---
PATIENT WAS MEDICATED WITH DILAUDID PRESCRIBED FOR SUDDEN ONSET C/O OF 10/10 PAIN TO RIGHT CHEST WALL AND LLQ ABDOMEN. PATIENT STATES HE HAD "GURGLING" IN ABDOMEN AND HAD GAS TO CLEAR. FIRM RAISED MASS TO RIGHT CHEST WALL NOTED, SKIN INTACT, THAT PATIENT STATES IS SOURCE OF CHEST PAIN. DR MCMAHON AND DR FRIED ARE AWARE AND AT BEDSIDE AT THIS POINT. AFTER ANALGESIC, PATIENT IS CALMER AND STATING PAIN DOWN TO 7-8/10 IN BOTH CHEST AND ABDOMEN.
--- NOTE | 2021-01-10 13:28 | NUR ---
PATIENT'S SURGERY POSTPONED PER DR MCMAHON. REPORT GIVEN TO VIET GONZALEZ RN. DR GLYNN AT BEDSIDE TO ASSESS PATIENT. WILL TRANSFER BACK TO HIS ROOM AFTER DR GLYNN CONSULT.
--- NOTE | 2021-01-10 13:50 | NUR ---
RETURN TO ROOM. NO SURGERY AT THIS POINT DUE TO NEW FINDING ON R CHEST WALL. SURGERY CONSULTED. PT VERY ANXIOUS.
--- NOTE | 2021-01-10 13:54 | NUR ---
1335- PATIENT TRANSFERED TO CT VIA GURNEY. AFTER CT SCAN, PATIENT TRANSFERED TO ROOM 209 VIA GURNEY. REPORT GIVEN TO BO GONZALEZ RN AT 1342.
[2021-01-10 14:31] LABS: Hematocrit 36.3 % (37.0-53.0); Hemoglobin 12.1 g/dL (13.5-17.5); Mean Corpuscular HGB 29.2 pg (26.0-34.0); Mean Corpuscular HGB Conc 33.3 g/dL (31.5-36.5); Mean Corpuscular Volume 88 fL (80-100); Mean Platelet Volume 8.6 fL (9.1-12.4); Platelet Count 377 K/mm3 (150-400); RDW Standard Deviation 41.5 fL (35.1-46.3); Red Blood Cell Count 4.14 M/mm3 (4.30-5.90)
[2021-01-10 14:48] LABS: International Normalized Ratio 1.14; Prothrombin Time Results 12.2 Sec (9.7-11.5)
[2021-01-10 14:57] LABS: Alanine Aminotransfer (ALT/SGP 36 U/L (12-78); Albumin, Blood 1.9 g/dL (3.4-5.0); Albumin/Globulin Ratio 0.3 (0.8-1.8); Alk Phos 156 U/L (50-136); Anion Gap 2 mmol/L (6-16); Aspartate Aminotrans (AST/SGOT 33 U/L (12-37); Bilirubin, Total 0.6 mg/dL (0.1-1.0); Blood Urea Nitrogen 9 mg/dL (8-24); Bun/Creatinine Ratio 14.7 (12.0-20.0); CO2, Blood 33 mmol/L (21-32); Calcium, Blood 9.1 mg/dL (8.5-10.1); Chloride, Blood 101 mmol/L (98-108); Creatinine, Blood 0.61 mg/dL (0.60-1.20); Globulin, Blood 5.8 g/dL (2.2-4.0); Glomerular Filtration Rate >60 (60-); Glucose, Blood 145 mg/dL (70-99); Sodium, Blood 136 mmol/L (136-145); Total Protein, Blood 7.7 g/dL (6.4-8.2)
--- NOTE | 2021-01-10 15:15 | NUR ---
PT TO DAY SURGERY VIA HOSPITAL BED. ATIVAN GIVEN AT THIS TIME DUE TO SEVERE ANXIETY
--- NOTE | 2021-01-10 15:37 | NUR ---
History, Chart, Medications and Allergies reviewed before start of procedure.Lungs clear T/O to Auscultation. Patient confirms NPO status and agrees with scheduled surgery. PASTORAL CARE CAM E TO SEE PATIENT BEFORE SRGERY.
--- NOTE | 2021-01-10 15:54 | NUR ---
Upon patient's request for a spiritual care visit, I meet patient in day surgery. Patient asks me to contact some friends of his, give a presurgery prayer and visit him the next day. I gladly provide prayer and make the phone call he requested. I will visit patient next day if my schedule will allow it.
--- NOTE | 2021-01-10 16:30 | NUR ---
01/10/21 1630 HILARIOSUSHILA SANTIAGO PT RECEIVED SCHEDULED DOSE OF ANTIBIOTICS PRIOR TO PROCEDURE PER DR ORDERS.
--- NOTE | 2021-01-10 17:30 | NUR ---
POST-OP PT RETURNED FROM OR. I&D OF L HAND, R CHEST WALL, R UPPER EXT, AND BACK OF HEAD. PINROSE DRAIN PRESENT ON L HAND W/ PACKING AND MICHAEL BANDAGE. C/D/I. R CHEST HAS PINROSE DRAIN W/ GUAZE, C/D/I. BACK OF R UPPER EXT HAS MEPILEX BANDAGE, C/D/I. BACK OF HEAD HAS GUAZE DRSG, C/D/I. VSS, PAIN TOLERABLE AT THIS TIME. PT PLEASANT AND LOOKING FORWARD TO EATING.
--- NOTE | 2021-01-10 18:13 | NUR ---
REFUSES TO REFUSE ENEMA STRESSED IMPORTANCE OF THIS AND HE AGREES HE WILL TOMORROW IF NO BM BY THEN.
--- NOTE | 2021-01-11 06:34 | NUR ---
SHIFT SUMMARY POD1 I&D #3 L HAND, I&D #1 R CHEST WALL, I&D #1 R OUTER TRICEP, I&D #1 OCCIPITAL, A/O X4 THOUGH PATIENT WILL OCCASIONALLY MUMBLE TO HIMSELF BUT ALSO ANSWERS QUESTIONS APPROPRIATELY, REPORTS HIGHER LEVELS OF PAIN THAT WHAT APPEARS TO BE INDICATED USING FACE SCALE, TOLERATING DIET, VOIDING WELL, AMBULATING INDEPENDENTLY. PT REMOVED DRESSING FROM OCCIPITAL I&D, AREA APPEARS TENDER AND WAS NOT ACTIVELY DRAINING SO IT WAS LEFT RAGHAVENDRA. NO ACUTE EVENTS THIS SHIFT. CALL LIGHT IN REACH, WILL CONTINUE TO MONITOR AND REPORT TO ONCOMING DAY RN.
[2021-01-11 07:49] LABS: Anion Gap 5 mmol/L (6-16); Blood Urea Nitrogen 14 mg/dL (8-24); Bun/Creatinine Ratio 19.3 (12.0-20.0); CO2, Blood 28 mmol/L (21-32); Chloride, Blood 98 mmol/L (98-108); Creatinine, Blood 0.72 mg/dL (0.60-1.20); Glomerular Filtration Rate >60 (60-); Glucose, Blood 352 mg/dL (70-99); Potassium, Blood 4.8 mmol/L (3.5-5.5); Sodium, Blood 131 mmol/L (136-145)
--- NOTE | 2021-01-11 11:08 | NUR ---
Echocardiogram performed.
--- NOTE | 2021-01-11 19:37 | NUR ---
SHIFT SUMMARY PT A&OX4, ANXIETY TREATED WITH 1 MG ATIVAN, SBA TO BRP. SHOWERED TODAY. PT REP PASSING LARGE AMT FLATUS, DENIES BM. ROBERTO PO. VOIDING IN URINAL AT BEDSIDE. SOAKED LEFT HAND X2, DRESSINGS CHANGED X2. REPORT PROVIDED TO CAT RN.
--- NOTE | 2021-01-12 04:33 | NUR ---
SHIFT SUMMARY NO ACUTE CHANGES OVERNIGHT. PT AOX4. ANXIETY IS BEING TREATED WITH ATIVAN AND PAIN IS MANAGED WITH DILAUDID 0.5MG AND NORCO 10MG. PT REFUSED TO SOAK HANDS LAST NIGHT. WANTING TO SLEEP. SLEPT MOST OF THE NIGHT. NO NOTED DRAINAGE ON SCALP/HEAD ABCESS. CALL LIGHT WITHIN REACH WILL PROVIDE REPORT TO ONCOMING NURSE.
[2021-01-12 07:00] LABS: Anion Gap 3 mmol/L (6-16); Blood Urea Nitrogen 8 mg/dL (8-24); Bun/Creatinine Ratio 12.9 (12.0-20.0); CO2, Blood 29 mmol/L (21-32); Calcium, Blood 8.3 mg/dL (8.5-10.1); Chloride, Blood 101 mmol/L (98-108); Creatinine, Blood 0.62 mg/dL (0.60-1.20); Glomerular Filtration Rate >60 (60-); Glucose, Blood 89 mg/dL (70-99); Potassium, Blood 4.5 mmol/L (3.5-5.5); Sodium, Blood 133 mmol/L (136-145)
[2021-01-12 07:07] LABS: Vancomycin, Trough 24.2 ug/mL (5.0-10.0)
[2021-01-12 08:09] LABS: HIV SCREEN 4TH GENERATION WRFX Non Reactive (Non Reactive)
--- NOTE | 2021-01-12 17:55 | NUR ---
RAPID RESPONSE PHARMACEUTICAL PLANT OPERATOR NOTIFIED RN THAT PATIENT WAS ACTING "OFF". PATIENT WAS NOTED TO BE UNSTEADY IN AMBULATING TO TOILET, DECREASED ORIENTATION, UNABLE TO EVEN IDENTIFY HIS OWN NAME, COMPLAINED OF FEELING VERY COLD. PATIENT WAS COLD TO THE TOUCH ON HIS FOREHEAD, SIDES, AND FLANKS. ONCE BACK IN BED HE WAS UNABLE TO STAY AWAKE TO RESPOND TO HIS NAME AND QUESTIONS. THIS RN CALLED THE RAPID RESPONSE TEAM. PATIENT'S HEAD WAS ELEVATED, 500 ML BOLUS OF NS WAS GIVEN, BG WAS CHECKED AT 109. BP, HR, SPO2, AND RR WERE ALL NORMAL. TEMP WAS 95.4 TEMPORAL AND UNABLE TO OBTAIN AN ORAL TEMP READING. NARCAN WAS GIVEN X2 30 MINUTES APART, BEAR HUGGER APPLIED. AFTER FLUID BOLUS NS WAS SET TO 150 MLS/HR. ALL NARCOTIC PAIN MEDS WERE DC'D FROM EMAR. PATIENT IS RESTING PEACEFULLY AT THIS TIME AND EASILY WAKES AND RESPONDS APPROPRIATELY.
--- NOTE | 2021-01-13 03:59 | NUR ---
SHIFT SUMMARY PT HAS BEEN ALERT OVERNIGHT, AWAKENING EASILY TO VERBAL STIMULI, EASILY AGITATED. PT DID ASK WHAT HAPPENED EARLIER WHEN "A LOT OF PEOPLE WERE IN HIS ROOM" AND WAS REMINDED OF CAMP HEAD COUNSELOR. PT STATES HE DOES NOT REMEMBER WHAT HAPPENED, ONLY THAT HIS ROOM WAS FULL OF STAFF. PT HAS REPORTED PAIN IN L HAND AND ABD AND INQUIRED ABOUT NARCOTICS; DISCUSSED THE D/C OF ATIVAN AND NARCOTICS AFTER CAMP HEAD COUNSELOR YESTERDAY WHEN PT RECIEVED NARCAN. PT HAS BEEN MEDICATED WITH TYLENOL AND HAS BEEN ABLE SLEEP AFTER TAKING TYLENOL. CBG AT START OF SHIFT WAS 87. PT PROVIDED WITH SNACKS. RE-CHECK AROUND MIDNIGHT WAS 76. PT AGAIN PROVIDED WITH SNACKS, BUT ONLY ATE A POPSICLE AND AN ENSURE, REFUSED SANDWICH AND CHEESE. HOSPITALIST CALLED AND ORDER OBTAINED FOR D5 1/2 NS X1 LITER PT IS NPO SINCE MIDNIGHT FOR SURGERY TODAY. DISCUSSED CARE WITH RESIDENTIAL REAL ESTATE SALES MANAGER. PT RESTING IN BED, CALL LIGHT IN REACH.
--- NOTE | 2021-01-13 09:51 | NUR ---
asking for water and pain medication, dr in to visit/assess and reminded him of change in prescriptions, remains NPO awaiting procedure, will continue to monitor and treat as prescribed
[2021-01-13 10:06] LABS: U Amphetamine Screen Not Detected; U Barbituate Screen Not Detected; U Benzodiazapine Screen DETECTED; U Cocaine Screen Not Detected; U Methadone Screen Not Detected; U Methamphetamine Screen Not Detected; U Opiates Screen DETECTED
[2021-01-13 10:07] LABS: U Buprenorphine Screen Not Detected; U Cannabinoids Screen DETECTED; U Oxycodone Screen Not Detected; U Phencyclidine Screen Not Detected; U Propoxyphene Screen Not Detected
--- NOTE | 2021-01-13 11:27 | NUR ---
Angry that surgery has not happened, fired nurse because he asked why batteries needed to be changed on a fan that was running, as he was changing them, informed cn of firing, will allow pt time then check in with him, maintenance of way superintendent in to ck vitals, pt just asked for food, he is npo until after procedure
--- NOTE | 2021-01-13 13:23 | NUR ---
dr called requesting that insulin be given, pointed out that pt was npo, instructed to give 10 reg and 10 long, asked for confirmation dr said to give the ten, gave ten pt stated he felt cold, came back an hour later pt stated he was hot and sweaty, blood sugar was 31, informed cn, gave him dextrose, rechecked blood sugar was 94, will check again, pt states he is feeling much better but is still hungry, will continue to monitor and treat
--- NOTE | 2021-01-13 13:59 | NUR ---
rechecked blood sugar 76, when picked up for day surgery, asked where he was as he was leaving for surgery
--- NOTE | 2021-01-13 14:27 | NUR ---
History, Chart, Medications and Allergies reviewed before start of procedure.Lungs clear T/O to Auscultation. Pre-Op teaching done. Pt verbalizes understanding.
--- NOTE | 2021-01-13 18:11 | NUR ---
returned from ds very hungery, said to up date diet order, pt requested two sandwiches and pudding while he waited for dinner tray, placed warmer on pt and raised the temp in rm per his request, eating well and enjoying tv program, a+o + 4, will continue to monitor and treat until share bsr with noc nurse and pt
--- NOTE | 2021-01-14 02:11 | NUR ---
2345 PT BECAME WEAK RETURNING TO BED FROM RESTROOM. PT HAD TO BE CARRIED TO BED BY TWO PERSONS. PT CBG CHECKED AT WAS >90. PT GAVE A SNACK. PT HAD NOTED EDMUND BLOOD IN TOIET, SCANT AMOUNT. PT APPEARS TO HAVE HEMMORRHOIDS, WCTM.
--- NOTE | 2021-01-14 04:02 | NUR ---
SUMMARY PT CONTINUES TO COMPLAIN OF PAIN/ DISCOMFORT THROUGHOUT. PT REPORTS SOME RELIEF W/ CURRENT PAIN MANAGEMENT. PT DID HAVE EPISODE OF SUDDEN WEAKNESS WALKING BACK TO BED FROM BATHROOM. PT HELPED BACK INTO BED. PT EDUCATED ON HIM CALLING FOR ASSISTANCE. BED ALARM TURNED ON. PT HAS HAD SMALL NOTED BM'S. PT HAD NOTED RECTAL BLEEDING AND APPEARED TO BE HEMMORHOIDS. PT GETS ANGRY EASILY FOR MINOR ISSUES. PT HAS NOT SLEPT THIS SHIFT. PT DRESSING CHANGED ON HIS CX AND R SHOULDER. PT REPORTS PASSING GAS FREQUENTLY. PT CURRENTLY REPORTS INCREASE IN L SIDE ABD DISCOMFORT. PT AWAKE AND AGITATED. CALL LIGHT IN REACH AND BED ALARM ON.
[2021-01-14 08:48] LABS: Vancomycin, Trough 20.6 ug/mL (5.0-10.0)
--- NOTE | 2021-01-14 09:04 | NUR ---
REPORT GIVEN TO MEDARDO CANALES. TRANSFERRED TO ROOM 348.
--- NOTE | 2021-01-14 12:09 | NUR ---
PAIN MANAGEMENT PT ASKING FOR SOMETHING STRONGER FOR THE PAIN IN HER HAND. PT EDUCATED ON WHY HE IS NO LONGER GETTING NARCOTICS RELATED TO THE EVENTS OF YESTERDAY, REQUIRING NARCAN. PT STATES HE UNDERSTANDS THAT. DR. PEREYRA NOTIFIED OF THIS. ORDER FOR JOSE OBTAINED.
--- NOTE | 2021-01-14 18:36 | NUR ---
SHIFT SUMMARY PT TRANSFERED TO THE FLOOR THIS AM. PT C/O CONSTIPATION. PRN SUPPOSITOR GIVEN WITH VERY LITTLE BM. PT REQUESTING ENEMA THIS AFTERNOON. PT CURRENTLY IN BATHROOM, TRYING TO HAVE A BM AFTER HIS ENEMA. PT C/O THROBBING & CONSTANT PAIN IN HIS L HAND. DR. PEREYRA NOTIFIED EARLIER IN THE SHIFT AND ORDERED ULTRAM. PT STATES THIS HELPED MORE WITH HIS PAIN. DR. DOTSON IN TO EVALUATE PTS L HAND. PT TO BE NPO AT MIDNIGHT FOR POSSIBLE SURGERY TOMORROW. NO OTHER ACUTE CHANGES IN ASSESSMENT AT THIS TIME. VS REVIEWED.
--- NOTE | 2021-01-14 21:57 | NUR ---
PT A/O X4. REQUESTED TO HAVE SOMETHING TO HELP HIM SLEEP. PT STATED HE WASN'T ABLE TO SLEEP UNTIL 5 AM YESTERDAY. HOSPITALIST JESSICA NOTIFIED, MELATONIN PO 5MG X1 NOW ORDERED. WILL GIVE ONCE PHARMACY VERIFIES.
--- NOTE | 2021-01-14 22:11 | NUR ---
BP RE-ASSESSED. PT WAS ALREADY ASLEEP WHEN THIS RN WENT IN. WILL CONTINUE TO MONITOR TO SEE IF PT REQUIRES MELATONIN.
--- NOTE | 2021-01-15 05:10 | NUR ---
SUPERVISOR STRIPPING SUMMARY PT A/O X4. PT HAS BEEN FEELING CONSTIPATED. AM NURSE HAS GIVEN PT ENEMA IN PREVIOUS SHIFT. PT STATES HE HAD ONE SMALL BOWEL MOVEMENT BUT STILL FEELS BLOATED. HE STATES HE IS PASSING GAS, BOWEL SOUNDS ARE HYPERACTIVE. RN ADMINISTED STOOL SOFTENERS. RN ALSO OFFERED TO MAKE PT A WARM GLASS OF PRUNE JUICE TO WHICH PT REFUSED. PT STATES HE DOESN'T WANT TO TAKE SOMETHING LIKE THAT AT NIGHT AND WILL WAIT. MEDICATED FOR ABD PAIN X1 TONIGHT. PT HAS SLETP ON AND OFF. DRESSING ON L HAND AND RIGHT CHEST WALL IS C.D.I. CALL LIGHT WITHIN REACH, BED ALARM ON. PT USES CALL LIGHT APPROPRIATELY.
--- NOTE | 2021-01-15 09:26 | NUR ---
ORDERS FROM DR. THOMPSON SPOKE WITH DR. THOMPSON ABOUT PTS CONSTIPATION AND LLQ PAIN RELATED TO IT. ORDER FOR WARM MINERAL OIL ENEMA OBTAINED. DR. THOMPSON NOTIFIED THAT ALL INSULIN WAS HELD THIS AM DUE TO BEING NPO. DR. THOMPSON ORDERED FOR 10 UNITS OF LANTUS TO BE GIVEN INSTEAD OF THE NORMAL DOSE. PER DR. THOMPSON, PT/OT ADDED TO PLAN OF CARE TO HELP WITH MOBILITY AND USE OF HIS L HAND.
--- NOTE | 2021-01-15 12:38 | NUR ---
UPDATE: NO SURGERY: BOWEL CARE DR. DOTSON IN TO SEE PTS WOUND ON HIS L HAND. DR. GUZMAN ORDERED TO HAVE PT IRRIGATE HIS L HAND WOUND IN THE SHOWER AND THEN BE REDRESSED AFTERWARDS. SURGERY NOT HAPPENING TODAY SO PT WAS ORDERED A ADA TRAY AND IS NOW EATING. DR. THOMPSON NOTIFIED OF THE NEW PLAN OF CARE FROM DR. DOTSON. DR. THOMPSON ALSO NOTIFIED THAT NO BM OCCURED AFTER FLEET ENEMA THIS AM. LACTULOSE & MIRALAX ADDED TO EMAR. PER DR. GLYNN SURGICAL NOTE, PTS JULIAN DRAIN IN CHEST MAY BE REMOVED ON 01/16/21.
--- NOTE | 2021-01-15 17:20 | NUR ---
SHIFT SUMMARY NO SURGERY DECIDED BY DR. DOTSON TODAY FOR PTS L HAND. SEE PREVIOUS NOTE. PTS L HAND & R CHEST WOUNDS PHOTOGRAPHED & REDRESSED TODAY. PT MEDICATED FOR PAIN PER EMAR T/O DAY. STATES A CONSISTANT 7-04/11 RATING. PT GIVEN 8 UNITS OF LANTUS PER DR. PEREYRA THIS AM DUE TO BEING NPO. PT SUGAR HAS REMAINED STABLE T/O SHIFT. PT FINALLY HAD A BM TODAY AFTER SIGNIFICANT BOWEL CARE. SEE EMAR. PT STATES HE HAS BEEN PASSING GAS ALL DAY AND NOW FEELS MUCH RELIEF IN HIS ABD. NO OTHER ACUTE CHANGES IN ASSESSMENT AT THIS TIME. VS REVIEWED. PT CURRENTLY RESTING IN BED AFTER TOILETING. CALL LIGHT IN REACH.
--- NOTE | 2021-01-15 22:12 | NUR ---
PT AGITATED AND THREATENED TO LEAVE AMA 2100 AT THIS TIME PT BECAME VERY AGITATED AND YELLED AT THIS RN THAT HE DOES NOT WANT THE BED ALARM ON. THIS RN EXPLAINED TO HIM BED ALARM IS ON FOR HIS SAFETY. PT CONTINUED TO RAISE HIS VOICE HE SAID THAT HE DOESN'T NEED IT AND HE HAS BEEN WALKING FINE. AT THIS POINT PT WANTED TO LEAVE AMA. VP HR DIVERSITY ELIEL TALKED TO PT, AND PT AGREED TO STAY LONG THE BED ALARM WAS TURNED OFF. RN ASSESSED PT WHO IS STABLE TO AMBULATE ON HIS FEET WITH STEADY GAIT AND BALANCE, HE DENIED FEELING DIZZY. DESPITE HX OF FALLING, VP HR DIVERSITY AGREED TO TURNING BED ALARM OFF. PT IS A/O X4 AND STATES HE WILL USE CALL LIGHT WHEN HE GETS UP. CALL LIGHT WITHIN REACH, WILL CONTINUE TO MONITOR.
--- NOTE | 2021-01-16 00:53 | NUR ---
01/16/21 This engineering writer was in patients room [facility] this evening, Eriberto had talked with a man named Jose Martin Alanis, who was coming in to milk pickup driver his car keys so Jose Martin could borrow his car. The patient, Eriberto states that he is going to be living with Jose Martin when he is discharged. Jose Martin came to the ER to milk pickup driver the keys. Discussed with data warehouse developer Mary Nicole if it was okay to give Eriberto's keys to this man, who is a new friend of Deangelo. Pt did come in with some enchephalopathy due to sepsis on admit. It was determined that we could pass on the keys if the patient requested it. Pt has written a note which is in his chart stating it was okay for Jose Martin Alanis to take his car keys and borrow his car. Jose Martin did bring in the patients phone and wallet which were taken to Eriberto's room and given to him.
--- NOTE | 2021-01-16 05:50 | NUR ---
RETAIL STOCKER SUMMARY PT A/O X4. MEDICATED ONCE FOR BACK PAIN OVERNIGHT. MEDICATED ONCE FOR NAUSEA. PT SLEPT ON AND OFF TONIGHT. GETS ANGRY EASILY AND APOLOGIZES AFTER. PT HAS BEEN HAVING ABD CRAMPING AFTER LACTULOSE GIVEN TONIGHT. NO BM'S OVERNIGHT BUT PT DID HAVE A FEW BM'S IN AM SHIFT. PT HAS BEEN USING CALL LIGHT APPROPRIATELY AND ASKING TO GET UP WITH ASSISTANCE. PT GAIT IS STEADY. VSS. CALL LIGHT WITHIN REACH.
[2021-01-16 08:28] LABS: Anion Gap 3 mmol/L (6-16); Blood Urea Nitrogen 8 mg/dL (8-24); Bun/Creatinine Ratio 13.3 (12.0-20.0); CO2, Blood 30 mmol/L (21-32); Calcium, Blood 8.5 mg/dL (8.5-10.1); Chloride, Blood 105 mmol/L (98-108); Glomerular Filtration Rate >60 (60-); Glucose, Blood 180 mg/dL (70-99); Potassium, Blood 4.2 mmol/L (3.5-5.5); Sodium, Blood 138 mmol/L (136-145)
[2021-01-16 08:34] LABS: Vancomycin, Trough 18.7 ug/mL (5.0-10.0)
--- NOTE | 2021-01-16 17:40 | NUR ---
SHIFT SUMMARY COLE PAINFUL THIS SHIFT, GOT PRN IBUPROFEN, TYLENOL, AND TRAMADOL AND A HEAT PACK WHICH HELPD WITH HIS PAIN. U/S DONE OF POSSIBLE ABSCESS FORMING ON L SIDE OF NECK, AWAITING RESULTS. ALSO HAS TWO HARD LUMPS IN L ABD/FLANK THAT ARE VERY PAINFUL FOR PT, DR THOMPSON MADE AWARE, SHE WILL F/U WITH WHETHER THEY WILL DO ANOTHER SCAN. NO BM THIS SHIFT. FULLY CONTINENT IN URINAL AND BATHROOM. DR DOTSON CAME TO BEDSIDE AND CHANGED HAND DRESSING, SHE WANTS DAILY DRESSINGS DONE, NO PLANS FOR OR IMMINENTLY. CBGS RANGED FROM 150-221. ONLY GIVEN HALF OF LANTUS DOSE. PT WALKED IN HALLWAY WITH OT. HAD VISITOR. CALM AND COOPERATIVE UNTIL DINNER, FRUSTRATED BY HIS PAIN AND NOT BEING ABLE TO EAT WHAT HE WANTS WHEN HE WANTS. DRESSING PLACED ON BACK OF HEAD AFTER SHAVING AROUND ABSCESS AREA. CALL LIGHT IN REACH, [facility]
--- NOTE | 2021-01-17 05:06 | NUR ---
BODY FITTER SUMMARY NO ACUTE CHANGES THIS SHIFT. PT AAOX4 AND VERY PLEASANT. CALLS FOR ASSITANCE APPROPRIATELY. STANDBY ASSIST TO BATHROOM. MEDICATED FOR PAIN X2, ONCE WITH MOTRIN AND ONCE WITH ULTRAM. CBG 257 AT BEDTIME, MEDICATED WITH 1 UNIT HUMALOG. PT REQUESTED CBG CHECK A FEW HOURS LATER, CBG 152 AT THAT TIME. PT REQUESTED SMALL SNACK. DRESSING ON L HAND C/D/I, PT DENIES PAIN FROM THE AREA. DRAIN REMOVED FROM SURGICAL SITE ON RU DURING DAY SHIFT, DRESSING INTACT. PT COMPLAINING OF SOME PAIN FROM SMALL AREAS ON LEFT SIDE/RIB AREA. PT STATES "IT MIGHT BE MORE ABCESSES FORMING". AREAS NOT VISIBLE FOR ANY ABNORMALITY. VSS, WILL CONTINUE TO MONITOR.
--- NOTE | 2021-01-17 19:17 | NUR ---
SHIFT SUMMARY PT TOOK A SHOWER THIS MORNING AND DRESSING REMOVED FROM L HAND FOR SHOWER. SOME BLEEDING NOTED BUT STOPPED WITH SLIGHT PRESSURE. PT REPORTED AND LARGE PIECE OF SKIN CAME OFF. SUTURES IN PLACE. REDRESSED AFTER SHOWER. HAS HAD NAUSEA ON AND OFF THROUGH THE DAY WITH APPETITE WAXING AND WANING. REPORTS PAIN TO L SIDE THAT IS SEVERE AND ONLY HELPS WITH PAIN MEDS AND HEAT. MD AWARE OF ULTRASOUND RESULTS AND NOTIFIED PT. CAN BE ANXIOUS AT TIMES BUT SELF RESOLVES. TRIES TO BE STOIC WITH EMOTIONAL STATE. CONCERNED ABOUT DISCHARGE PLANS AND POTENTIAL REDISCHARGE BACK TO THE STREETS. SOCIAL WORK PROFESSOR ENCOURAGED PT TO INJECT HIS OWN INSULIN SINCE HE REPORTS HIS HAND STRENGHT IS TO WEAK. NEEDLE PUNCTURED SKIN AND WENT HALF IN WITH HIM PUSHING PLUNGER AND THEN HE REMOVED NEEDLE QUICKLY BUT INSULIN DIAL AT ZERO AND NO WETNESS NOTED TO ARM OR LINENS AROUND ARM. INDEPENDENT TO BATHROOM.
--- NOTE | 2021-01-17 20:18 | NUR ---
PT CAME OUT OF ROOM AFTER POUNDING ON DOOR. SCREAMING THAT HE WANTED HIS COFFEE. PT TOLD ME NOT TO COME IN HIS ROOM I DID NOT "HAVE ANY RESPECT FOR HIM". COFFEE PROVIDED TO PT FROM PT TRAY THAT HAD BEEN REMOVED FROM ROOM. TOLD PT I WOULD GIVE HIM SOME TIME TO CALM DOWN AND THAT HE COULD NOT TALK TO STAFF THAT WAY.
--- NOTE | 2021-01-18 04:51 | NUR ---
SHIFT SUMMARY PT BECAME VERY IRRITABLE AND ANGRY AT START OF SHIFT. REQUESTED TO SPEAK TO THE AIR BRAKE RIGGER. LULU PAL CAME AND SPOKE WITH PT. AFTER SOME TIME PT CALMED DOWN AND APOLOGIZED FOR HIS BEHAVIOR. PT WAS PLEASANT THE REMAINDER OF THE EVENING. DRESSING TO LEFT HAND REMAINED C/D/I. MEPILEX PLACED TO SORE ON BACK OF HEAD. ALL OTHER SORES OPEN TO AIR. PT HAD A BOWEL MOVEMENT THIS EVENING. COMPLAINED OF PAIN, MOSTLY IN LEFT ABD. MEDICATED PER EMAR. VITAL SIGNS STABLE. PT AFEBRILE. WILL CONTINUE TO MONITOR.
--- NOTE | 2021-01-18 12:46 | NUR ---
LULU ALEXANDER CALLED RE CT GUIDED PROCEDURE. REQUEST CHANGE TO U/S AND IF NEEDS LABS. CALLED DR LOGAN, STATES JUST SPOKE TO LULU AND U/S IS FINE. STATES HE ORDERED LABS. OKAY TO EAAT FOR PROCEDURE, NO SEDATION, ONLY LOCAL.
--- NOTE | 2021-01-18 19:25 | NUR ---
PT QUITE PLEASNT TODAY. PAIN SINCE ATTEMPTED U/S DRAIN IN LEFT ABD. SPOKE TO . NO NEW ORDERS FOR PAIN MED. GAVE ADVIL. AND TORADOL. ALSO ORDERS FOR TRAZADONE FOR BEDTIME ONE TIME DOSE. NO SWELLING ON ABD NOTED. NO BLEEDING AT NEEDLE SITE. NO OTHER CONCENS NOTED AT THIS TIME. BED IN LOW POSITION, CALL LITE IN REACH, CALLS APPROP
[2021-01-19 05:51] LABS: Creatinine, Blood 0.82 mg/dL (0.60-1.20)
[2021-01-19 05:53] LABS: Vancomycin, Trough 20.5 ug/mL (5.0-10.0)
--- NOTE | 2021-01-19 06:00 | NUR ---
SHIFT SUMMARY A/O, ABLE TO MAKE NEEDS KNOWN. COOPERATIVE WITH CARE. CALLS AND ANSWERS QUESTIONS APPROPRIATELY. C/O PAIN/DISCOMFORT; MEDICATED PER EMAR. APPEARED TO REST OFF AND ON T/O NIGHT. REQUIRES 1P /c CANE TO BATHROOM. RE-DRESSED SX SITE TO L HAND. VSS/AFEBRILE. NO ACUTE CHANGES NOTED OVERNIGHT. BED REMAINED IN LOWEST POSITION. CALL LIGHT AND BELONGINGS WITHIN REACH. CONTINUE WITH CURRENT PLAN OF CARE. REPORT TO ONCOMING RN.
[2021-01-19 08:47] LABS: BASOPHILS ABSOLUTE AUTO 0.04 K/mm3 (0.00-0.23); BASOPHILS PERCENT AUTO 0 % (0-2); EOSINOPHILS ABSOLUTE AUTO 0.18 K/mm3 (0.00-0.68); EOSINOPHILS PERCENT AUTO 2 % (0-6); Hematocrit 32.6 % (37.0-53.0); Hemoglobin 10.7 g/dL (13.5-17.5); IMMATURE GRAN ABSOLUTE AUTO 0.05 K/mm3 (0.00-0.10); IMMATURE GRAN PERCENT AUTO 1 % (0-1); LYMPHOCYTES ABSOLUTE AUTO 0.93 K/mm3 (0.84-5.20); LYMPHOCYTES PERCENT AUTO 11 % (21-46); MONOCYTES ABSOLUTE AUTO 0.64 K/mm3 (0.16-1.47); MONOCYTES PERCENT AUTO 7 % (4-13); Mean Corpuscular HGB 29.4 pg (26.0-34.0); Mean Corpuscular HGB Conc 32.8 g/dL (31.5-36.5); Mean Corpuscular Volume 90 fL (80-100); Mean Platelet Volume 8.4 fL (9.1-12.4); NEUTROPHILS ABSOLUTE AUTO 7.05 K/mm3 (1.96-9.15); NEUTROPHILS PERCENT AUTO 79 % (41-73); Platelet Count 344 K/mm3 (150-400); RDW Coefficient Variation 13.4 % (11.7-14.2); RDW Standard Deviation 43.6 fL (35.1-46.3); Red Blood Cell Count 3.64 M/mm3 (4.30-5.90); White Blood Cell Count 8.89 K/mm3 (4.00-11.30)
[2021-01-19 09:08] LABS: Anion Gap -1 mmol/L (6-16); Blood Urea Nitrogen 16 mg/dL (8-24); CO2, Blood 35 mmol/L (21-32); Chloride, Blood 99 mmol/L (98-108); Creatinine, Blood 0.73 mg/dL (0.60-1.20); Glomerular Filtration Rate >60 (60-); Glucose, Blood 119 mg/dL (70-99); Sodium, Blood 133 mmol/L (136-145)
--- NOTE | 2021-01-19 15:09 | NUR ---
PATIENT LEAVE AMA: PATIENT INSISTS ON LEAVING AMA; HOSPITALIST (DR PEREYRA) AWARE; IV REMOVED; PT EDUCATED ON IMPORTANCE OF INSULIN MONITORING & WOUND MONITORING. PT DEPARTED AT 1509.
[2021-01-20 08:10] LABS: IMMUNOGLOBULIN A, QN, SERUM 551 mg/dL (61-437); IMMUNOGLOBULIN G, QN, SERUM 2422 mg/dL (603-1613); IMMUNOGLOBULIN M, QN, SERUM 89 mg/dL (20-172)
[2021-01-21 15:11] LABS: HCV LOG10 6.215 (.); HEPATITIS C QUANTITATION 1640000 IU/mL (.)
== END 2021-01-19 15:11 | disposition left against medical advice (07) | DRG 853 ==
LOC: ER 12:19 → PCU 18:44 → MEDS 18:44 → SURS 18:44 → ICUW 18:44 → PCU 01-04 18:07 → SURS 01-05 18:01 → MEDS 01-14 08:53 → SURS 01-14 08:54 → MEDS 01-14 08:59
PROVIDERS: Emergency Medicine; Family Medicine; Internal Medicine Infectious Disease; Nurse Practitioner Acute Care; Orthopaedic Surgery; Pharmacist; Surgery; ADMIT Internal Medicine
PROC: 0R9V0ZZ Drainage of Left Metacarpophalangeal Joint, Open Approach (ICD-10-PCS; principal; 2021-01-04)
PROC: 0JBK0ZZ Excision of Left Hand Subcutaneous Tissue and Fascia, Open Approach (ICD-10-PCS; 2021-01-05)
PROC: 0LB80ZZ Excision of Left Hand Tendon, Open Approach (ICD-10-PCS; 2021-01-07)
PROC: 0L980ZZ Drainage of Left Hand Tendon, Open Approach (ICD-10-PCS; 2021-01-10)
PROC: 0LB80ZZ Excision of Left Hand Tendon, Open Approach (ICD-10-PCS; 2021-01-10)
PROC: 0H90XZZ Drainage of Scalp Skin, External Approach (ICD-10-PCS; 2021-01-10)
PROC: 0K9H0ZZ Drainage of Right Thorax Muscle, Open Approach (ICD-10-PCS; 2021-01-10 18:30)
PROC: 0H9BXZZ Drainage of Right Upper Arm Skin, External Approach (ICD-10-PCS; 2021-01-10 18:30)
PROC: 0L980ZZ Drainage of Left Hand Tendon, Open Approach (ICD-10-PCS; 2021-01-13)
PROC: 0LB80ZZ Excision of Left Hand Tendon, Open Approach (ICD-10-PCS; 2021-01-13)
PROC: 0HBQXZZ Excision of Finger Nail, External Approach (ICD-10-PCS; 2021-01-13)
PROC: 0HBQXZZ Excision of Finger Nail, External Approach (ICD-10-PCS; 2021-01-13)
PROC: 0HBQXZZ Excision of Finger Nail, External Approach (ICD-10-PCS; 2021-01-13)
PROC: 0HBQXZZ Excision of Finger Nail, External Approach (ICD-10-PCS; 2021-01-13)
PROC: 0HBQXZZ Excision of Finger Nail, External Approach (ICD-10-PCS; 2021-01-13)
DX: A41.02 Sepsis due to Methicillin resistant Staphylococcus aureus (principal); E11.00 Type 2 diabetes mellitus with hyperosmolarity without nonketotic hyperglycemic-hyperosmolar coma (NKHHC); G92 Toxic encephalopathy; L02.512 Cutaneous abscess of left hand; L02.511 Cutaneous abscess of right hand; N39.0 Urinary tract infection, site not specified; L03.114 Cellulitis of left upper limb; K86.1 Other chronic pancreatitis; L02.811 Cutaneous abscess of head [any part, except face]; L02.213 Cutaneous abscess of chest wall; L02.211 Cutaneous abscess of abdominal wall; L02.212 Cutaneous abscess of back [any part, except buttock and flank]; L02.11 Cutaneous abscess of neck; L03.115 Cellulitis of right lower limb; L02.415 Cutaneous abscess of right lower limb; L97.119 Non-pressure chronic ulcer of right thigh with unspecified severity; J43.9 Emphysema, unspecified; G89.4 Chronic pain syndrome; M19.90 Unspecified osteoarthritis, unspecified site; I10 Essential (primary) hypertension; I25.10 Atherosclerotic heart disease of native coronary artery without angina pectoris; F15.10 Other stimulant abuse, uncomplicated; N40.0 Benign prostatic hyperplasia without lower urinary tract symptoms; F19.10 Other psychoactive substance abuse, uncomplicated; F31.9 Bipolar disorder, unspecified; B18.2 Chronic viral hepatitis C; E11.628 Type 2 diabetes mellitus with other skin complications; L73.8 Other specified follicular disorders; F17.210 Nicotine dependence, cigarettes, uncomplicated; R45.1 Restlessness and agitation; R65.20 Severe sepsis without septic shock; L89.891 Pressure ulcer of other site, stage 1; R68.0 Hypothermia, not associated with low environmental temperature; Z53.29 Procedure and treatment not carried out because of patient's decision for other reasons; E11.42 Type 2 diabetes mellitus with diabetic polyneuropathy; K59.03 Drug induced constipation; T40.2X5A Adverse effect of other opioids, initial encounter; Z59.0 Homelessness; E11.65 Type 2 diabetes mellitus with hyperglycemia; Z88.0 Allergy status to penicillin; Z91.041 Radiographic dye allergy status; Z95.5 Presence of coronary angioplasty implant and graft; Z89.431 Acquired absence of right foot; Z91.14 Patient's other noncompliance with medication regimen; Z86.14 Personal history of Methicillin resistant Staphylococcus aureus infection; Z79.51 Long term (current) use of inhaled steroids; Z79.4 Long term (current) use of insulin; Z79.82 Long term (current) use of aspirin; Z79.899 Other long term (current) drug therapy; Z78.1 Physical restraint status
CPT/HCPCS: 36415; 49405; 51702; 70030; 70450; 71250; 72128; 72131; 73200; 74018; 74176; 76536; 76705; 80048; 80053; 80202; 81001; 82378; 82565; 82784; 82947; 83036; 83605; 85014; 85018; 85025; 85027; 85610; 85651; 86140; 87040; 87070; 87075; 87077; 87086; 87147; 87186; 87205; 87389; 87522; 93005; 93010; 93306; 93971; 94760; 96365; 96366; 96375; 97110; 97116; 97161; 97166; 97530; 97535; 99284-25; A9270; J0360; J1100; J1170; J1200; J1650; J1815; J1956; J2060; J2250; J2270; J2310; J2370; J2405; J2704; J2765; J3010; J3370; J3411; J3475; J7030; J7042; J7050; J7120; J7121; U0004

== ENCOUNTER 2021-05-09 10:08 | Observation (INO) | payer MEDICARE, OTHER ==
[~2021-05-09] VITALS: Ht 177.8 cm; Wt 72.6 kg
[~2021-05-09 10:08] MED LIST changes: -ANORO ELLIPTA1 EACH INH; -FLUTICASONE-SA1 EAC9 INH; -LEVEMIR FL100 UNIT/2 SC; -NOVOLOG FL100 UNIT/3 SC
[2021-05-09 11:24] LABS: BASOPHILS ABSOLUTE AUTO 0.06 K/mm3 (0.00-0.23); BASOPHILS PERCENT AUTO 1 % (0-2); EOSINOPHILS ABSOLUTE AUTO 0.35 K/mm3 (0.00-0.68); EOSINOPHILS PERCENT AUTO 4 % (0-6); Hematocrit 34.6 % (37.0-53.0); Hemoglobin 12.2 g/dL (13.5-17.5); IMMATURE GRAN ABSOLUTE AUTO 0.03 K/mm3 (0.00-0.10); IMMATURE GRAN PERCENT AUTO 0 % (0-1); LYMPHOCYTES ABSOLUTE AUTO 1.62 K/mm3 (0.84-5.20); LYMPHOCYTES PERCENT AUTO 18 % (21-46); MONOCYTES PERCENT AUTO 9 % (4-13); Mean Corpuscular HGB 29.2 pg (26.0-34.0); Mean Corpuscular HGB Conc 35.3 g/dL (31.5-36.5); Mean Corpuscular Volume 83 fL (80-100); Mean Platelet Volume 8.8 fL (9.1-12.4); NEUTROPHILS ABSOLUTE AUTO 6.28 K/mm3 (1.96-9.15); NEUTROPHILS PERCENT AUTO 69 % (41-73); Platelet Count 297 K/mm3 (150-400); RDW Coefficient Variation 13.7 % (11.7-14.2); RDW Standard Deviation 40.9 fL (35.1-46.3); Red Blood Cell Count 4.18 M/mm3 (4.30-5.90); White Blood Cell Count 9.14 K/mm3 (4.00-11.30)
[2021-05-09 12:00] LABS: Alanine Aminotransfer (ALT/SGP 25 U/L (12-78); Albumin, Blood 2.6 g/dL (3.4-5.0); Albumin/Globulin Ratio 0.4 (0.8-1.8); Alk Phos 90 U/L (50-136); Anion Gap 3 mmol/L (6-16); Aspartate Aminotrans (AST/SGOT 19 U/L (12-37); Bilirubin, Total 0.7 mg/dL (0.1-1.0); Blood Urea Nitrogen 13 mg/dL (8-24); Bun/Creatinine Ratio 13.9 (12.0-20.0); CO2, Blood 29 mmol/L (21-32); Calcium, Blood 8.4 mg/dL (8.5-10.1); Chloride, Blood 98 mmol/L (98-108); Creatinine, Blood 0.93 mg/dL (0.60-1.20); Ethanol (Alcohol), Blood, Med <3 mg/dL; Globulin, Blood 5.9 g/dL (2.2-4.0); Glomerular Filtration Rate >60 (60-); Glucose, Blood 335 mg/dL (70-99); Potassium, Blood 4.2 mmol/L (3.5-5.5); Salicylate <1.7 mg/dL (2.8-20.0); Sodium, Blood 130 mmol/L (136-145); Total Protein, Blood 8.5 g/dL (6.4-8.2)
[2021-05-09 12:01] LABS: Acetaminophen, Random <2.0 ug/mL (10.0-30.0)
[2021-05-09 12:38] LABS: SARS-Cov-2 (COVID-19) PCR, MMC NEGATIVE (NEGATIVE)
[2021-05-09] MEDS ORDERED: FLUTICASONE-SA1 EAC9 INH (13:17)
[2021-05-09] MEDS ORDERED: ANORO ELLIPTA1 EACH INH (13:18)
[2021-05-09] MEDS ORDERED: ALBU90OI INH (13:18)
[2021-05-09] MEDS ORDERED: LEVEMIR FL100 UNIT/2 SC (13:19)
[2021-05-09 14:07] LABS: U Amphetamine Screen DETECTED; U Barbituate Screen Not Detected; U Benzodiazapine Screen Not Detected; U Buprenorphine Screen Not Detected; U Cannabinoids Screen DETECTED; U Cocaine Screen Not Detected; U Methadone Screen Not Detected; U Methamphetamine Screen DETECTED; U Opiates Screen Not Detected; U Oxycodone Screen Not Detected; U Phencyclidine Screen Not Detected; U Propoxyphene Screen Not Detected
[2021-05-09] MEDS ORDERED: NOVOLOG FL100 UNIT/3 SC (16:03)
[2021-05-09] MEDS ORDERED: ASPI81CH PO (18:28)
--- NOTE | 2021-05-09 18:56 | NUR ---
ADMIT TO MED FLOOR PT ADMITTED TO MEDICAL FLOOR FROM ER WITH OSTEOMYELITIS. REPORT RECIEVED FROM MEDARDO ADAMS. PT ARRIVED VIA W/C AND TRANSFERRED IND TO BED. PT IS A&O AND UP IND. PT HAS MULTIPLE OPEN SORES ON HIS EXTREMETIES AND SCALP AND DOES PICK AT THEM FREQUENTLY. PT ALSO HAS A R FOOT W/ AMPUTATED TOES IN 1997. PT REPORTS THE STUMP END HAS BEEN OPEN APPROXIMATELY 6 MTHS NOW. AFTER PT WAS ORIENTED TO ROOM AND CALL LIGHT SYSTEM HE SHOWERED IND AND THEN PICS OF R FOOT WOUND WERE OBTAINED. WOUND WAS COVERED WITH ABD PAD AND WRAPPED, PT TOLERATED WELL. REPORTS GIVEN TO SASCHA BATRES.
--- NOTE | 2021-05-09 19:24 | NUR ---
ORTHO CONSULT CALLED TO DR. MCMAHON, UPDATED DR. CASTRO AND HE REQUEST PT BE PLACED ON SI PRECAUTIONS AND VIDEO MONITORING. DR. CASTRO REPORTS HE ALREADYS SPOKE WITH ORTHO AND PODIARTY FOR CONSULT. ARRANGED FOR TRANSFER FROM [facility] TO 352 TO ACCOMADATE VIDEO MONITORING AND REPORT GIVEN TO MEDARDO RUTHERFORD.
[2021-05-09] MEDS ORDERED: FLUT1DIS5 INH (21:10)
[2021-05-09] MEDS ORDERED: ESCI10 PO (21:18)
[2021-05-09] MEDS ORDERED: GABA100 PO (21:18)
[2021-05-09] MEDS ORDERED: LEVE500 PO (21:19)
[2021-05-09] MEDS ORDERED: ROPINIROLE HCL PO (21:26)
--- NOTE | 2021-05-10 04:55 | NUR ---
SHIFT SUMMARY A/OX3, COOPERATIVE WITH CARE. MOD SI PRECAUTIONS IN PLACE, HOWEVER PT DENIES ANY THOUGHTS OF SUICIDE. MULTIPLE SORES/SCABBING T/O BODY. TOTAL R. 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 POWERGLIDE PLACED, IV VANCO GIVEN. VSS, NO ACUTE CHANGES AT THIS TIME. BED IN LOWEST POSITION WITH CALL LIGHT IN REACH. WILL CONTINUE TO MONITOR AND REPORT TO ONCOMING RN.
[2021-05-10 05:23] LABS: BASOPHILS ABSOLUTE AUTO 0.07 K/mm3 (0.00-0.23); BASOPHILS PERCENT AUTO 1 % (0-2); EOSINOPHILS ABSOLUTE AUTO 0.34 K/mm3 (0.00-0.68); EOSINOPHILS PERCENT AUTO 3 % (0-6); Hematocrit 33.3 % (37.0-53.0); Hemoglobin 11.7 g/dL (13.5-17.5); IMMATURE GRAN ABSOLUTE AUTO 0.06 K/mm3 (0.00-0.10); IMMATURE GRAN PERCENT AUTO 1 % (0-1); LYMPHOCYTES PERCENT AUTO 12 % (21-46); MONOCYTES ABSOLUTE AUTO 1.04 K/mm3 (0.16-1.47); MONOCYTES PERCENT AUTO 10 % (4-13); Mean Corpuscular HGB 28.7 pg (26.0-34.0); Mean Corpuscular HGB Conc 35.1 g/dL (31.5-36.5); Mean Corpuscular Volume 82 fL (80-100); NEUTROPHILS ABSOLUTE AUTO 7.81 K/mm3 (1.96-9.15); NEUTROPHILS PERCENT AUTO 74 % (41-73); Platelet Count 295 K/mm3 (150-400); RDW Coefficient Variation 13.3 % (11.7-14.2); RDW Standard Deviation 39.9 fL (35.1-46.3); Red Blood Cell Count 4.07 M/mm3 (4.30-5.90); White Blood Cell Count 10.62 K/mm3 (4.00-11.30)
[2021-05-10 06:12] LABS: Alanine Aminotransfer (ALT/SGP 25 U/L (12-78); Albumin, Blood 2.4 g/dL (3.4-5.0); Albumin/Globulin Ratio 0.4 (0.8-1.8); Alk Phos 93 U/L (50-136); Anion Gap 4 mmol/L (6-16); Aspartate Aminotrans (AST/SGOT 15 U/L (12-37); Bilirubin, Total 0.4 mg/dL (0.1-1.0); Blood Urea Nitrogen 16 mg/dL (8-24); Bun/Creatinine Ratio 17.1 (12.0-20.0); CO2, Blood 28 mmol/L (21-32); Calcium, Blood 8.8 mg/dL (8.5-10.1); Chloride, Blood 97 mmol/L (98-108); Creatinine, Blood 0.94 mg/dL (0.60-1.20); Globulin, Blood 5.6 g/dL (2.2-4.0); Glomerular Filtration Rate >60 (60-); Glucose, Blood 270 mg/dL (70-99); Potassium, Blood 4.1 mmol/L (3.5-5.5); Sodium, Blood 129 mmol/L (136-145)
--- NOTE | 2021-05-10 18:37 | NUR ---
Shift Summary, The patient is A/OX3 to self, place and event. The patient rested most of the morning. He has been manic this afternoon and keeps using the call light. He has been threatening with his words and demanding in the room. An DELIO prsn is sitting with the patient had it seems to help him calm down. He is on RA and denied any SOB. He is independent in the room but needs to be monitored for impolsive decisions. The patient is currently resting in bed talking with DELIO.
[2021-05-11 06:02] LABS: Hematocrit 31.1 % (37.0-53.0); Hemoglobin 10.7 g/dL (13.5-17.5); Mean Corpuscular HGB 28.8 pg (26.0-34.0); Mean Corpuscular HGB Conc 34.4 g/dL (31.5-36.5); Mean Corpuscular Volume 84 fL (80-100); Platelet Count 222 K/mm3 (150-400); RDW Coefficient Variation 13.7 % (11.7-14.2); Red Blood Cell Count 3.71 M/mm3 (4.30-5.90); White Blood Cell Count 4.79 K/mm3 (4.00-11.30)
[2021-05-11 06:28] LABS: Albumin/Globulin Ratio 0.4 (0.8-1.8); Bilirubin, Total 0.2 mg/dL (0.1-1.0); Bun/Creatinine Ratio 23.6 (12.0-20.0); Calcium, Blood 8.6 mg/dL (8.5-10.1); Creatinine, Blood 1.23 mg/dL (0.60-1.20); Potassium, Blood 4.3 mmol/L (3.5-5.5)
--- NOTE | 2021-05-11 06:48 | NUR ---
PATIENT QUITE AGITATED OVERNIGHT REQUIRING SECURITY TO COME INTO ROOM TWICE TO ASSIST RN TO GIVE MEDICATIONS AND ALLOW ASSESSMENT TO BE DONE. AT ONE POINT, SAID WE WANTED TO HURT HIM. PATIENT WOULD DE-ESCALATE JUST FAST HE WOULD FLY OFF THE HANDLE WITH STAFF. NEOSPORIN OINTMENT PUT ON SCABS AFTER CLEANSING, THEN WRAPPED GENTLY PER PATIENTS REQUEST.
[2021-05-11] MEDS ORDERED: CITA20 PO (14:30)
[2021-05-11] MEDS ORDERED: GLIPIZIDE ER2.5 MG PO (14:37)
[2021-05-11] MEDS ORDERED: Seroquel Xr50 MG PO (14:39)
--- NOTE | 2021-05-11 17:28 | NUR ---
DISCHARGE NOTE THE PATIENT DISCHARGED WITH [facility] AT 1715. THE PATIENT RECEIVED DISCHARGE INSTRUCTIONS REGARDING FOLLOW UP CARE WITH THE WOUND CLINIC POSSIBLY IN THE AM. THE PATIENT'S VSS AND THE PATIENT HAD NO FURTHER QUESTIONS REGARDING THEIR DISCHARGE.
== END 2021-05-11 17:13 | disposition home health service (06) ==
LOC: ER 10:08 → MEDS 10:09 → ER 16:04 → MEDS 16:04
PROVIDERS: Emergency Medicine Emergency Medical Services; Internal Medicine; ADMIT Hospitalist
DX: E11.69 Type 2 diabetes mellitus with other specified complication (principal); M86.671 Other chronic osteomyelitis, right ankle and foot; F43.21 Adjustment disorder with depressed mood; F03.91 Unspecified dementia, unspecified severity, with behavioral disturbance; E11.621 Type 2 diabetes mellitus with foot ulcer; L89.894 Pressure ulcer of other site, stage 4; S90.851A Superficial foreign body, right foot, initial encounter; G89.29 Other chronic pain; B95.62 Methicillin resistant Staphylococcus aureus infection as the cause of diseases classified elsewhere; F15.10 Other stimulant abuse, uncomplicated; F12.10 Cannabis abuse, uncomplicated; F31.9 Bipolar disorder, unspecified; B19.20 Unspecified viral hepatitis C without hepatic coma; J44.9 Chronic obstructive pulmonary disease, unspecified; I10 Essential (primary) hypertension; E11.42 Type 2 diabetes mellitus with diabetic polyneuropathy; F17.210 Nicotine dependence, cigarettes, uncomplicated; I25.10 Atherosclerotic heart disease of native coronary artery without angina pectoris; X58.XXXA Exposure to other specified factors, initial encounter; Z88.0 Allergy status to penicillin; Z91.041 Radiographic dye allergy status; Z79.4 Long term (current) use of insulin; Z89.431 Acquired absence of right foot; Z95.5 Presence of coronary angioplasty implant and graft; Z59.0 Homelessness; Z20.822 Contact with and (suspected) exposure to COVID-19
CPT/HCPCS: 36415; 73630; 73700; 80053; 82947; 83036; 84443; 85025; 85027; 85651; 94640; 94762; 96365; 96366; 96372; 96375; 96376; 99285-25; A9270; G0378; G0480; J0696; J1644; J1885; J3370; J7050; Q3014; U0004

== ENCOUNTER 2021-05-20 09:57 | Emergency (ER) | payer MEDICARE, OTHER ==
[~2021-05-20] VITALS: Ht 175.3 cm; Wt 61.2 kg
[~2021-05-20 09:57] MED LIST changes: +ANORO ELLIPTA1 EACH INH; +CITA20 PO; +ESCI10 PO; +FLUT1DIS5 INH; +FLUTICASONE-SA1 EAC9 INH; +GABA100 PO; +GLIPIZIDE ER2.5 MG PO; +LEVEMIR FL100 UNIT/2 SC; +NOVOLOG FL100 UNIT/3 SC; +ROPINIROLE HCL PO; +Seroquel Xr50 MG PO
[2021-05-20] MEDS ORDERED: CLIN150 PO (10:14)
[2021-05-20 10:48] LABS: BASOPHILS ABSOLUTE AUTO 0.04 K/mm3 (0.00-0.23); BASOPHILS PERCENT AUTO 1 % (0-2); EOSINOPHILS PERCENT AUTO 3 % (0-6); Hematocrit 38.6 % (37.0-53.0); Hemoglobin 13.1 g/dL (13.5-17.5); IMMATURE GRAN ABSOLUTE AUTO 0.04 K/mm3 (0.00-0.10); IMMATURE GRAN PERCENT AUTO 1 % (0-1); LYMPHOCYTES ABSOLUTE AUTO 1.75 K/mm3 (0.84-5.20); LYMPHOCYTES PERCENT AUTO 25 % (21-46); MONOCYTES ABSOLUTE AUTO 0.78 K/mm3 (0.16-1.47); MONOCYTES PERCENT AUTO 11 % (4-13); Mean Corpuscular HGB 29.2 pg (26.0-34.0); Mean Corpuscular HGB Conc 33.9 g/dL (31.5-36.5); Mean Corpuscular Volume 86 fL (80-100); NEUTROPHILS ABSOLUTE AUTO 4.34 K/mm3 (1.96-9.15); NEUTROPHILS PERCENT AUTO 61 % (41-73); Platelet Count 256 K/mm3 (150-400); RDW Coefficient Variation 14.2 % (11.7-14.2); Red Blood Cell Count 4.49 M/mm3 (4.30-5.90); White Blood Cell Count 7.15 K/mm3 (4.00-11.30)
[2021-05-20 11:07] LABS: Alanine Aminotransfer (ALT/SGP 59 U/L (12-78); Albumin, Blood 2.9 g/dL (3.4-5.0); Albumin/Globulin Ratio 0.5 (0.8-1.8); Alk Phos 91 U/L (50-136); Anion Gap 2 mmol/L (6-16); Aspartate Aminotrans (AST/SGOT 55 U/L (12-37); Bilirubin, Total 0.4 mg/dL (0.1-1.0); Blood Urea Nitrogen 21 mg/dL (8-24); Bun/Creatinine Ratio 19.8 (12.0-20.0); CO2, Blood 31 mmol/L (21-32); Calcium, Blood 9.2 mg/dL (8.5-10.1); Chloride, Blood 101 mmol/L (98-108); Creatinine, Blood 1.06 mg/dL (0.60-1.20); Glomerular Filtration Rate >60 (60-); Glucose, Blood 201 mg/dL (70-99); Potassium, Blood 4.4 mmol/L (3.5-5.5); Sodium, Blood 134 mmol/L (136-145); Total Protein, Blood 8.9 g/dL (6.4-8.2)
[2021-05-20 11:09] LABS: BAND PERCENT MAN 2 % (0-8); BASOPHILS ABSOLUTE MAN 0.14 K/mm3 (0.00-0.23); BASOPHILS PERCENT MAN 2 % (0-2); EOSINOPHILS ABSOLUTE MAN 0.42 K/mm3 (0.00-0.68); EOSINOPHILS PERCENT MAN 6 % (0-6); LYMPHOCYTES PERCENT MAN 28 % (21-46); MONOCYTES ABSOLUTE MAN 0.35 K/mm3 (0.16-1.47); MONOCYTES PERCENT MAN 5 % (4-13); NEUTROPHILS ABSOLUTE MAN 4.21 K/mm3 (1.96-9.15); SEG NEUTROPHILS PERCENT MAN 57 % (41-73); TOTAL CELLS COUNTED 100
[2021-05-20] MEDS ORDERED: ONDA4ODT MM (13:07)
== END 2021-05-20 13:15 | disposition home or self-care (01) ==
LOC: ER 09:57
PROVIDERS: Physician Assistant
DX: E10.69 Type 1 diabetes mellitus with other specified complication (principal); M86.671 Other chronic osteomyelitis, right ankle and foot; E10.621 Type 1 diabetes mellitus with foot ulcer; L97.519 Non-pressure chronic ulcer of other part of right foot with unspecified severity; I10 Essential (primary) hypertension; F17.210 Nicotine dependence, cigarettes, uncomplicated; Z91.041 Radiographic dye allergy status; Z88.0 Allergy status to penicillin; Z79.899 Other long term (current) drug therapy; Z79.84 Long term (current) use of oral hypoglycemic drugs; Z89.431 Acquired absence of right foot
CPT/HCPCS: 36415; 80053; 83605; 85025; 96365; 96375; 99284-25; A9270; J1885; J2405

== ENCOUNTER 2021-05-26 15:54 | Inpatient (IN) | payer MEDICARE, OTHER ==
[~2021-05-26] VITALS: Ht 177.8 cm; Wt 69.4 kg
[~2021-05-26 15:54] MED LIST changes: +CLIN150 PO; +ONDA4ODT MM
[2021-05-26 16:48] LABS: Hematocrit 34.5 % (37.0-53.0); Hemoglobin 11.9 g/dL (13.5-17.5); Mean Corpuscular HGB 28.8 pg (26.0-34.0); Mean Corpuscular HGB Conc 34.5 g/dL (31.5-36.5); Mean Corpuscular Volume 84 fL (80-100); Mean Platelet Volume 9.1 fL (9.1-12.4); Platelet Count 261 K/mm3 (150-400); RDW Coefficient Variation 13.9 % (11.7-14.2); RDW Standard Deviation 42.6 fL (35.1-46.3); Red Blood Cell Count 4.13 M/mm3 (4.30-5.90); White Blood Cell Count 5.51 K/mm3 (4.00-11.30)
[2021-05-26 17:04] LABS: Alanine Aminotransfer (ALT/SGP 33 U/L (12-78); Albumin, Blood 2.5 g/dL (3.4-5.0); Albumin/Globulin Ratio 0.4 (0.8-1.8); Alk Phos 86 U/L (50-136); Anion Gap 5 mmol/L (6-16); Aspartate Aminotrans (AST/SGOT 32 U/L (12-37); Bilirubin, Total 0.5 mg/dL (0.1-1.0); Blood Urea Nitrogen 12 mg/dL (8-24); Bun/Creatinine Ratio 16.7 (12.0-20.0); CO2, Blood 26 mmol/L (21-32); Chloride, Blood 103 mmol/L (98-108); Creatinine, Blood 0.72 mg/dL (0.60-1.20); Globulin, Blood 6.1 g/dL (2.2-4.0); Glomerular Filtration Rate >60 (60-); Glucose, Blood 270 mg/dL (70-99); Potassium, Blood 4.4 mmol/L (3.5-5.5); Sodium, Blood 134 mmol/L (136-145); Total Protein, Blood 8.6 g/dL (6.4-8.2)
[2021-05-26 17:23] LABS: BAND PERCENT MAN 3 % (0-8); BASOPHILS ABSOLUTE MAN 0.22 K/mm3 (0.00-0.23); BASOPHILS PERCENT MAN 4 % (0-2); EOSINOPHILS ABSOLUTE MAN 0.27 K/mm3 (0.00-0.68); EOSINOPHILS PERCENT MAN 5 % (0-6); LYMPHOCYTES % ATYPICAL MANUAL 1 % (0-0); LYMPHOCYTES ABSOLUTE MAN 1.15 K/mm3 (0.84-5.20); LYMPHOCYTES PERCENT MAN 20 % (21-46); MONOCYTES ABSOLUTE MAN 0.33 K/mm3 (0.16-1.47); MONOCYTES PERCENT MAN 6 % (4-13); NEUTROPHILS ABSOLUTE MAN 3.52 K/mm3 (1.96-9.15); SEG NEUTROPHILS PERCENT MAN 61 % (41-73); TOTAL CELLS COUNTED 100
[2021-05-26 22:02] LABS: C-REACTIVE PROTEIN, EXT RANGE 0.914 mg/dL (0.000-0.300)
[2021-05-26 22:22] LABS: Source, Urine Clean Catch
[2021-05-26 22:28] LABS: Appearance, Urine Clear (Clear); Bilirubin, Urine Neg (Neg); Blood, Urine 2+ (Neg); Color, Urine Amber (P-Yellow); Glucose Qualitative, Urine 3+ (Neg); Ketones, Urine Neg (Neg); Leukocyte Esterase, Urine 1+ (Neg); Nitrite, Urine Neg (Neg); Protein, Urine 3+ (Neg); Urobilinogen, Urine 1+ (Normal)
[2021-05-26 22:36] LABS: Bacteria Mod /hpf; Mucus Light (0-Heavy); Squamous Epithelial Cells Not Seen /hpf (Few); White Blood Cells, Urine 0-2 /hpf (0-5)
[2021-05-27 04:19] LABS: BASOPHILS ABSOLUTE AUTO 0.03 K/mm3 (0.00-0.23); BASOPHILS PERCENT AUTO 1 % (0-2); EOSINOPHILS ABSOLUTE AUTO 0.23 K/mm3 (0.00-0.68); EOSINOPHILS PERCENT AUTO 5 % (0-6); Hematocrit 34.1 % (37.0-53.0); Hemoglobin 11.6 g/dL (13.5-17.5); Mean Corpuscular Volume 85 fL (80-100); Mean Platelet Volume 8.8 fL (9.1-12.4); Platelet Count 223 K/mm3 (150-400); RDW Coefficient Variation 13.7 % (11.7-14.2); RDW Standard Deviation 42.9 fL (35.1-46.3); White Blood Cell Count 4.95 K/mm3 (4.00-11.30)
[2021-05-27 04:20] LABS: IMMATURE GRAN ABSOLUTE AUTO 0.02 K/mm3 (0.00-0.10); IMMATURE GRAN PERCENT AUTO 0 % (0-1); LYMPHOCYTES ABSOLUTE AUTO 1.26 K/mm3 (0.84-5.20); LYMPHOCYTES PERCENT AUTO 26 % (21-46); MONOCYTES ABSOLUTE AUTO 0.54 K/mm3 (0.16-1.47); MONOCYTES PERCENT AUTO 11 % (4-13); NEUTROPHILS ABSOLUTE AUTO 2.87 K/mm3 (1.96-9.15); NEUTROPHILS PERCENT AUTO 58 % (41-73)
[2021-05-27 04:41] LABS: Alanine Aminotransfer (ALT/SGP 26 U/L (12-78); Albumin, Blood 2.2 g/dL (3.4-5.0); Albumin/Globulin Ratio 0.4 (0.8-1.8); Alk Phos 81 U/L (50-136); Anion Gap 3 mmol/L (6-16); Aspartate Aminotrans (AST/SGOT 22 U/L (12-37); Bilirubin, Total 0.3 mg/dL (0.1-1.0); Blood Urea Nitrogen 15 mg/dL (8-24); Bun/Creatinine Ratio 19.4 (12.0-20.0); CO2, Blood 30 mmol/L (21-32); Calcium, Blood 8.5 mg/dL (8.5-10.1); Chloride, Blood 103 mmol/L (98-108); Creatinine, Blood 0.77 mg/dL (0.60-1.20); Globulin, Blood 5.5 g/dL (2.2-4.0); Glomerular Filtration Rate >60 (60-); Glucose, Blood 222 mg/dL (70-99); Potassium, Blood 3.9 mmol/L (3.5-5.5); Sodium, Blood 136 mmol/L (136-145); Total Protein, Blood 7.7 g/dL (6.4-8.2)
--- NOTE | 2021-05-27 06:43 | NUR ---
PATIENT ARRIVED ON THE UNIT LAST NIGHT ALERT A & O X 4. PATIENT WAS MEDICATED WITH PRN NORCO, FENTANYL, AND TORADOL. PATIENT IS ON CONTACT DUE TO MRSA IN THE WOUNDS ON BOTH ARMS. PATIENT IS NPO AND IS POSSIBLY GETTING A RIGHT BKA. VITALS ARE STABLE AND THERE IS NO SIGN OF DISTRESS. WILL CONTINUE TO MONITOR.
[2021-05-27 08:49] LABS: SARS-Cov-2 (COVID-19) PCR, MMC NEGATIVE (NEGATIVE)
--- NOTE | 2021-05-27 11:17 | NUR ---
It was reported to me that patient was being uncooperative and yelling at staff. The charge nurse spoke with patient about acceptable behavior which only escelated the patient. She then asked me to speak to him. I brought in 2 copies of a behavior contract to the patient. I handed him a copy and I read the other copy out load to the patient. When I asked him to sign it, he refused saying he was illiterate and had dementia and did not understand what I just read to him. I once again repeated that the expectation was to treat the staff with respect and to not yell. He could communicate his concerns in a normal tone of voice. He stated he was hungry and wanted to eat. I reminded him of the NPO status as he was going to be having surgery in a few hours.
--- NOTE | 2021-05-27 11:49 | NUR ---
PT HAD SHOWER THIS AM. AFTER SHOWER, HE REQUESTED ASSISTANCE WITH APPLYING CREAM TO ARM. STAFF ASKED IF HE COULD USE HIS OTHER HAND, PT BECAME FRUSTRATED WITH THIS. FIELD SUPPORT ENGINEER SPOKE WITH PT WHICH DID NOT HELP. RN SUPERVISER SPOKE WITH PT; SEE PREVIOUS NOTE. PT APOLOGIZED TO STAFF AND STATES HE WILL BE RESPECTFUL AND COOPERATIVE. DRESSING TO RLE CHANGED AFTER SHOWER. PT PROVIDED WITH CLEAN LINENS AND GOWN. RESTING IN BED AT THIS TIME.
--- NOTE | 2021-05-27 12:29 | NUR ---
PT TO OR AT THIS TIME WITH SOURCING SPECIALIST
--- NOTE | 2021-05-27 13:41 | NUR ---
05/27/21 1341 HILARIO,SUSHILA PERALTA,ANESTHESIA PLACED PTS RIGHT POPLITEAL FOSSA BLOCK PRIOR TO PROCEDURE, VS STABLE, PT TOLERATED PROCEDURE WELL.
--- NOTE | 2021-05-27 15:20 | NUR ---
PT BACK FROM SURGERY. DROWSY BUT AWAKENS EASILY. VSS ON RA. PROVIDED WITH WATER AND SNACKS. STUMP SOCK IN PLACE TO RLE, MADDYL.
--- NOTE | 2021-05-27 16:49 | NUR ---
SHIFT SUMMARY PT HAS BEEN A/O X4. HAD A SHOWER TODAY AND LINENS CHANGED PRIOR TO SURGERY. S/P R BKA TODAY, STUMP SOCK IN PLACE CDI. PAIN MANAGED WITH NORCO AND FENTANYL PRN. PT TOLERATING PO INTAKE POST-OP. VSS POST-OP. PT RESTING IN BED AT THIS TIME.
--- NOTE | 2021-05-27 18:06 | NUR ---
PT REQUESTING MULTIPLE SNACKS AND JUICE. PT EDUCATED ON MANAGING BLOOD GLUCOSE, AFFECTS ON INFECTION, AND DIET MANAGMENT. PT STATES HE UNDERSTANDS BUT CONTINUES TO ADAMENTLY REQUEST SNACKS AND JUICES.
--- NOTE | 2021-05-27 18:57 | NUR ---
PT CALLED STAFF STATING HE NEEDED TO HAVE A BM. COMMODE PLACED NEXT TO BED AND WALKER PROVIDED. PT WAS ASKED TO USE COMMODE HE HAS NOT WORKED WITH THERAPY YET. PT WAS INSISTENT THAT HE WALK TO BATHROOM. EDUCATION PROVIDED REGARDING SAFE TRANSFER, FALL RISK, AND INCRAEASED RISK OF INJURY. PT CONTINUED TO INSIST ON USING BATHROOM WITHOUT ASSISTANCE. PT STATED THAT IF HE FELL IT WOULD BE HIS FAULT, NOT STAFF'S FAULT. PT TOLD OTHER RN TO GET OUT OF HIS WAY AND PROCEDED TO USE WALKER AND WALK TO BATHROOM, REFUSING ASSISTANCE. PT ALSO REFUSED TO WEAR NON-SKID SOCK. PT WOULD NOT ALLOW STAFF TO VISUALIZE HIM SITTING DOWN ON TOILET BEFORE SHUTTING THE BATHROOM DOOR. PT DID MAKE IT TO BATHROOM AND THE BACK TO BED WITHOUT FALLING, HOWEVER HE ADMITTED TO FEELING WEAK. EDUCATED AGAIN ON SAFETY.
--- NOTE | 2021-05-27 23:01 | NUR ---
PATIENT'S BLOOD GLUCOSE WAS 433 AND THE MD WAS NOTIFIED AND A HIGH SLIDING SCALE WAS ORDERED AND 18 UNITS OF HUMULOG SQ WAS ADMINISTERED. PATIENT WAS EDUCATED ON REASONS FOR THE HIGH BLOOD GLUCOSE AND PT WAS RECEPTIVE AND ASKING QUESTIONS. WILL CONTINUT TO MONITOR.
[2021-05-28 05:34] LABS: Vancomycin, Trough 18.6 ug/mL (5.0-10.0)
--- NOTE | 2021-05-28 06:29 | NUR ---
PATIENT DID NOT SLEEP WELL LAST NIGHT AND STATED THAT HE TAKES SEROQUEL FOR SLEEP, AND THE NURSE WILL PASS THIS INFORMATION TO MORNING NURSE IN REPORT. THE PATIENT SHOWED NO SIGNS OF DISTRESS. WILL CONTIUE TO MONITOR.
--- NOTE | 2021-05-28 14:41 | NUR ---
DRESSING CHANGED BY DR DOTSON. PT STATES HE IS PAINFUL AND "NOT FEELING GOOD". DR MONTERROSO. MEDICATED WITH ZOFRAN AND FOR PAIN. ROOM TEMP TURNED, DOWN, FAN ON. PT RESTING. WCTM.
--- NOTE | 2021-05-28 17:47 | NUR ---
SHIFT SUMMARY PT IS A/O X4. TOLERATING PO INTAKE AND VOIDING. DRESSING CHANGED TODAY BY DR DOTSON. PT C/O PAIN; MEDICATING PRN PER ORDERS. PT WORKED WITH THERAPY TODAY. EDUCATION PROVIDED ABOUT GLUCOSE MANAGEMENT AND PAIN MANAGMENT. PT SEEMS RECEPTIVE. PT RESTING IN BED AT THIS TIME.
[2021-05-29 05:19] LABS: BASOPHILS ABSOLUTE AUTO 0.02 K/mm3 (0.00-0.23); BASOPHILS PERCENT AUTO 0 % (0-2); EOSINOPHILS ABSOLUTE AUTO 0.16 K/mm3 (0.00-0.68); EOSINOPHILS PERCENT AUTO 3 % (0-6); Hematocrit 33.3 % (37.0-53.0); Mean Corpuscular HGB 29.2 pg (26.0-34.0); Mean Corpuscular Volume 88 fL (80-100); Mean Platelet Volume 8.9 fL (9.1-12.4); Platelet Count 205 K/mm3 (150-400); RDW Coefficient Variation 14.2 % (11.7-14.2); RDW Standard Deviation 45.4 fL (35.1-46.3); Red Blood Cell Count 3.77 M/mm3 (4.30-5.90)
[2021-05-29 05:52] LABS: IMMATURE GRAN ABSOLUTE AUTO 0.03 K/mm3 (0.00-0.10); IMMATURE GRAN PERCENT AUTO 1 % (0-1); LYMPHOCYTES ABSOLUTE AUTO 1.59 K/mm3 (0.84-5.20); LYMPHOCYTES PERCENT AUTO 27 % (21-46); MONOCYTES ABSOLUTE AUTO 0.54 K/mm3 (0.16-1.47); MONOCYTES PERCENT AUTO 9 % (4-13); NEUTROPHILS ABSOLUTE AUTO 3.46 K/mm3 (1.96-9.15); NEUTROPHILS PERCENT AUTO 60 % (41-73)
[2021-05-29 05:55] LABS: Albumin, Blood 2.2 g/dL (3.4-5.0); Anion Gap 2 mmol/L (6-16); Blood Urea Nitrogen 24 mg/dL (8-24); CO2, Blood 30 mmol/L (21-32); Calcium, Blood 8.7 mg/dL (8.5-10.1); Chloride, Blood 106 mmol/L (98-108); Creatinine, Blood 0.83 mg/dL (0.60-1.20); Glomerular Filtration Rate >60 (60-); Glucose, Blood 228 mg/dL (70-99); Phosphorus, Blood 3.1 mg/dL (2.5-4.9); Potassium, Blood 4.5 mmol/L (3.5-5.5); Sodium, Blood 138 mmol/L (136-145)
[2021-05-29 06:17] LABS: Vancomycin, Trough 23.8 ug/mL (5.0-10.0)
--- NOTE | 2021-05-29 06:36 | NUR ---
PT IS A/OX3. HE IS ABLE TO MAKE HIS NEEDS KNOWN. NO EVENTS DURING THE NIGHT. PT IS S/P RBKA FOR OSTEOMYELITIS. STUMP SOCK IN PLACE. MEDICATED FOR PAIN WITH PRN TORADOL AND NORCO. GOOD RESULTS. ACCEPTED ALL SCHEDULED MEDICATIONS TONIGHT. CBS, RA. BT'S POS. NO GI UPSET, DENIED ANY N/V. USES URINAL. PIV TO RT HAND PATENT. VANCOMYCIN ON HOLD D/T TROUGH OF 23.8. CONT W/IV ABX FOR MRSA INF. HAS SEVERAL MRSA WOUNDS TO BACK/BUE'S. DID GET BED BATH DURING CASER IN.
--- NOTE | 2021-05-29 17:59 | NUR ---
SUMMARY SLEPT MOST OF THE DAY, DENIED ANY NEED FOR PAIN MEDS TODAY EXCEPT FOR TORADOL THIS AM, NOT VERY COOPERATIVE WITH PT/OT, RLE STUMP DRESSING CHANGED BY DR. DOTSON THIS EVENING, NO ACUTE CHANGES THIS SHIFT.
--- NOTE | 2021-05-29 23:50 | NUR ---
ASSUMED CARE OF PT. PT LYING IN BED, APPEARS TO BE SLEEPING, RESP E/U. CALL LIGHT IN REACH. WILL MONITOR AND TX PER ORDERS.
[2021-05-30 05:22] LABS: Vancomycin, Trough 16.7 ug/mL (5.0-10.0)
--- NOTE | 2021-05-30 05:33 | NUR ---
POD 3 S/P R BKA. PT VSS. DRESSING REPLACED X1 R/T FALLING OFF WHILE PT MOVING IN BED. WPUND WNL. SONIDO INTACT. PAIN MGD PER EMAR. IVF CONT PER ORDERS. AWAITING DC PLANNING.
--- NOTE | 2021-05-30 08:34 | NUR ---
PT MORE AWAKE TODAY, NOTED TO HAVE A PILLOW UNDER RLE, PT WAS INSTRUCTED BY DR. DOTSON YESTERDAY TO NOT HAVE A PILLOW UNDER RLE BUT PT INSISTS ON KEEPING PILLOW THERE STATES IT HELPS WITH THE PAIN, PT BECAME UPSET AND REFUSED TO HAVE THE PILLOW REMOVED, STATES "IF YOU TAKE IT OUT I'M JUST GOING TO PUT ANOTHER ONE UNDER IT" DR. MEDRANO ROUNDED ON PT THIS AM, INFORMED HIM THAT LOCAL SNF HAS REFUSED TO ACCEPT HIM AND ARE WAITING ON RESPONSES FROM OTHER FACILITIES.
--- NOTE | 2021-05-30 10:21 | NUR ---
Discussed DM management with pt. Discussed what foods raise blood glucose and what food pt has access too. Limited food security limits pts ability to closely follow recommendations. Pt reported administering insulin without checking blood glucose. Discussed obtaining glucometer and prescription for testing strips with case repairer.
--- NOTE | 2021-05-30 19:03 | NUR ---
SUMMARY WORKED W/ PT/OT TODAY, MEDICATED WITH 2 NORCO ONCE, CONT. TO HAVE A PILLOW UNDER RLE, DIET CHANGED BY DIRECTOR OF DATABASE MARKETING TO INCLUDE DOUBLE PORTIONS OF PROTEIN BUT PT STILL SAYS HE'S HUNGRY AND CONSTANTLY ASKING FOR SNACKS, AWAITING RESPONSES FROM SKILLED FACILITIES PER REELING OPERATOR, NO ACUTE CHANGES THIS SHIFT.
--- NOTE | 2021-05-31 05:18 | NUR ---
PT IS A/OX3. ABLE TO MAKE HIS NEEDS KNOWN. NO EVENTS DURING THE NIGHT. SLEPT MOST OF THE NIGHT. CONTINUES ON ISOLATION FOR MRSA. PIV TO LFA (22 GAUGE) PATENT. TOLERATED IV VANCO WELL, NO ASE NOTED. MEDICATED FOR PAIN WITH PRN TORADOL/NORCO. GOOD RESULTS. PT KEPT PILLOW UNDER HIS RIGHT KNEE. INSTRUCTED PT MD DOES NOT WANT PILLOW UNDER KNEE. PT GAVE VERBAL UNDERSTANDING BUT REFUSED FOR STAFF TO REMOVE PILLOW.
[2021-05-31 08:48] LABS: Albumin, Blood 2.2 g/dL (3.4-5.0); Anion Gap 6 mmol/L (6-16); Blood Urea Nitrogen 16 mg/dL (8-24); Bun/Creatinine Ratio 22.2 (12.0-20.0); CO2, Blood 28 mmol/L (21-32); Calcium, Blood 8.6 mg/dL (8.5-10.1); Chloride, Blood 104 mmol/L (98-108); Creatinine, Blood 0.72 mg/dL (0.60-1.20); Glomerular Filtration Rate >60 (60-); Glucose, Blood 206 mg/dL (70-99); Phosphorus, Blood 3.1 mg/dL (2.5-4.9); Potassium, Blood 4.5 mmol/L (3.5-5.5); Sodium, Blood 138 mmol/L (136-145)
[2021-05-31 17:46] LABS: Vancomycin, Trough 14.5 ug/mL (5.0-10.0)
--- NOTE | 2021-05-31 18:23 | NUR ---
SHIFT SUMMARY PATIENT AOX4 S/P R BKA POD2; VSS, PATIENT REPORTS PAIN THROUGHOUT SHIFT AND REQUEST PRN PAIN MEDICATION. PRN FENTANYL 25MCG GIVEN X2 ON SHIFT, PATIENT UP TO BR WITH ASSIST WITH WALKER. PATIEN OKAY TO SHOWER PER DR DOTSON. IV ABX GIVEN PER ORDER
--- NOTE | 2021-06-01 06:19 | NUR ---
PT IS A/OX3. ABLE TO MAKE HIS NEEDS KNOWN. COMPLIANT AND COOPERATIVE WITH HIS CARE OVER NIGHT. NO EVENTS DURING NIGHT. IN BETTER MOOD DUE TO PERSONAL REASONS. CONTINUES ON ISOLATION FOR MRSA. DRSG TO RT STUMP IS CDI. CONTINUES TO PUT PILLOW UNDER RT KNEE EVEN AFTER RN EDUCATED PT NOT TO HAVE PILLOW UNDER KNEE. PT REFUSED TO HAVE RN REMOVE PILLOW FROM UNDER HIS RT KNEE. PIV TO LFA PATENT, FLUSHES WELL. ACCEPTED ALL PRESCRIBED MEDICATIONS. TOOK MEDS WITH PUDDING. HS FBS: 170.
--- NOTE | 2021-06-01 21:40 | NUR ---
PT HAS FLUID FILLED AREA TO HIS LEFT ELBOW. AREA MARKED WITH SHARPIE. PT REPORTS HE NOTICED PAIN AND FLUID TO AREA 5-6 HOURS AGO. PT IS ABLE TO MOVE RUE W/O PROBLEMS. DOES C/O PAIN W/PRESSURE TO AREA. PT INSTRUCTED TO PROP RUE TO RELIEVE PRESSURE TO AREA, HE GAVE VERBAL UNDERSTANDING.
--- NOTE | 2021-06-02 06:31 | NUR ---
PT IS A/OX3. ABLE TO MAKE HIS NEEDS KNOWN. PT WAS IN GOOD SPIRITS AND TALKED BEING ABLE TO OBTAIN STATE ISSUED ID AND BEING ACCEPTED FOR [facility]. PT HAD TWO SHOWERS YESTERDAY. DRSG TO RLE STUMP IS CDI. PAIN MANAGED WITH PRN NORCO AND PRN FENTANYL. DENIED ANY GI UPSET. HAD BM YEST. USES URINAL. AC/HS BLOOD SUGAR CHECKS, HS: 274. PIV TO LFA, 22 GAUGE, PATENT. TOLERATING IV VANCO W/NO ASE NOTED. LT ELBOW HAD FLUID FILLED AREA, PT REPORTS STARTED YEST. IS PAINFUL TO TOUCH/PRESSURE. AREA CIRCLED WITH SHARPIE TO MONITOR. CONTINUES WITH ISOLATION PRECAUTIONS FOR MRSA.
--- NOTE | 2021-06-02 13:20 | NUR ---
PROVIDERS DRAINED BURSA SACK AT BEDSIDE. PT TOLERATED WELL. SAMPLE SENT TO LAB AT THIS TIME.
[2021-06-02 13:36] LABS: Hematocrit 32.5 % (37.0-53.0); Hemoglobin 10.8 g/dL (13.5-17.5); Mean Corpuscular HGB 29.3 pg (26.0-34.0); Mean Corpuscular HGB Conc 33.2 g/dL (31.5-36.5); Mean Corpuscular Volume 88 fL (80-100); Mean Platelet Volume 9.3 fL (9.1-12.4); Platelet Count 202 K/mm3 (150-400); RDW Coefficient Variation 14.2 % (11.7-14.2); RDW Standard Deviation 45.4 fL (35.1-46.3); Red Blood Cell Count 3.69 M/mm3 (4.30-5.90); White Blood Cell Count 5.26 K/mm3 (4.00-11.30)
--- NOTE | 2021-06-02 14:48 | NUR ---
SHIFT SUMMARY: POD 6 RIGHT BKA PATIENT IS ALERT AND ORIENTED X3-4. VS ARE WNL AND IS ON RA. PAIN IS MANAGED WITH IV FENTANYL AND 2 NORCOS. DRESSING WAS CHANGED EARLIER IN THE SHIFT ON HIS RIGHT LOWER EXTREMITY. SINCE THE DRESSING IT HAS BEEN C/D/I. PATIENT WAS ABLE TO WORK WITH PT/OT TODAY AND WAS UP IN A WHEELCHAIR AT ONE POINT. PATIENT DID HAVE AN I&D OF HIS LEFT ELBOW BY DR. BONILLA AT BEDSIDE. 4CC OF FLUID WAS TAKEN OUT AND WASHED. HIS ELBOW NOW HAS GAUZE AND MICHAEL WRAP THAT IS C/D/I. PATIENT IS TOLERATING PO INTAKE AND IS VOIDING. HE IS CURRENTLY LAYING IN BED. CALL LIGHT WITHIN REACH. THE PLAN IS TO CONTINUE ABX AND TO FIND A SNF FOR HIM TO DISCHARGE TO.
[2021-06-02 15:30] LABS: BAND PERCENT MAN 10 % (0-8); BASOPHILS PERCENT MAN 0 % (0-2); EOSINOPHILS ABSOLUTE MAN 0.26 K/mm3 (0.00-0.68); EOSINOPHILS PERCENT MAN 5 % (0-6); LYMPHOCYTES ABSOLUTE MAN 0.68 K/mm3 (0.84-5.20); LYMPHOCYTES PERCENT MAN 13 % (21-46); MONOCYTES PERCENT MAN 2 % (4-13); SEG NEUTROPHILS PERCENT MAN 70 % (41-73); TOTAL CELLS COUNTED 100
[2021-06-02 23:39] LABS: Vancomycin, Trough 15.3 ug/mL (5.0-10.0)
[2021-06-03 04:22] LABS: Hematocrit 31.4 % (37.0-53.0); Hemoglobin 10.4 g/dL (13.5-17.5)
--- NOTE | 2021-06-03 04:51 | NUR ---
SHIFT SUMMARY: PT POD#7 FOR A RT BKA. PT C/O 8/10 PAIN IN BEGINNING OF SHIFT. PT OFFERED PO PAIN MEDICATION, HOWEVER REFUSED AND REQUESTED FENTANYL INSTEAD. PT EDUCATED ON PAIN MANAGEMENT AND ENCOURAGED TO TRY PO MEDS FIRST. PT BECAME VERY IRRITABLE AND AGITATED. REPORTING THAT THE NORCO DOES NOT WORK AND HE ONLY WANTS FENTANYL. PT HAS BEEN MEDICATED WITH FENTANYL TWICE THIS SHIFT. NORCO NOT GIVEN D/T REFUSAL. PT OOB TO BATHROOM W/FWW AND SBA. TOLERATING ACTIVITY WELL. VOIDING WELL IN URINAL AND ROBERTO PO. STUMP SOCK DRESSING C/D/I. LEFT ELBOW SWOLLEN AGAIN AFTER PREVIOUS ASPIRATION. WRAPPED IN MICHAEL WRAP FOR COMFORT.
--- NOTE | 2021-06-03 14:40 | NUR ---
PT ON W/C OUT IN THE HALLS, TOLERATING WELL.
--- NOTE | 2021-06-03 17:57 | NUR ---
SUMMARY PLEASANT AND COOPERATIVE TODAY, HAD RLE MUSCLE SPASMS TODAY, KPAD APPLIED TO RLE W/ GOOD RELIEF, ALSO STARTED ON BACLOFEN, UP TO W/C X2, STATES HE FEELS SAD ABOUT LOSING HIS LEG, REQUESTED TO SPEAK TO SPIRITUAL CARE, REFERRAL MADE, UP W/ WALKER AND STANDY ASSIST TO STAND, ABLE TO AMBULATE TO THE BATHROOM W/ SUPERVISION, NO ACUTE CHANGES THIS SHIFT.
--- NOTE | 2021-06-04 03:22 | NUR ---
PT APPEARS TO BE SLEEPING.
[2021-06-04 04:00] LABS: Hemoglobin 10.6 g/dL (13.5-17.5); Mean Corpuscular HGB 29.4 pg (26.0-34.0); Mean Corpuscular HGB Conc 33.1 g/dL (31.5-36.5); Mean Corpuscular Volume 89 fL (80-100); Mean Platelet Volume 8.9 fL (9.1-12.4); Platelet Count 196 K/mm3 (150-400); RDW Coefficient Variation 14.5 % (11.7-14.2); RDW Standard Deviation 46.8 fL (35.1-46.3); White Blood Cell Count 5.35 K/mm3 (4.00-11.30)
[2021-06-04 04:23] LABS: Albumin, Blood 2.3 g/dL (3.4-5.0); Anion Gap 3 mmol/L (6-16); Blood Urea Nitrogen 19 mg/dL (8-24); Bun/Creatinine Ratio 21.5 (12.0-20.0); CO2, Blood 30 mmol/L (21-32); Calcium, Blood 8.9 mg/dL (8.5-10.1); Chloride, Blood 104 mmol/L (98-108); Creatinine, Blood 0.88 mg/dL (0.60-1.20); Glomerular Filtration Rate >60 (60-); Glucose, Blood 184 mg/dL (70-99); Potassium, Blood 4.3 mmol/L (3.5-5.5); Sodium, Blood 137 mmol/L (136-145)
--- NOTE | 2021-06-04 05:28 | NUR ---
SHIFT SUMMARY POD 8 FOR R BKA. MICHAEL BANDAGE AND STUMP SLEEVE C/D/I. HEATING PAD TO R STUMP AND PT STATES THAT HELPS WITH THE PAIN. PT IS A&O X4 AND CALLS APPROPRIATELY. PT HAS A H/O PTSD AND VOICED THIS HISTORY WELL HIS CONCERN FOR HIS BAD DREAMS HE STATES HE HAS FREQUENTLY. PT HAS REPORTED PAIN AND HAS BEEN TREATED PER EMAR. PT REQUESTS IV PAIN MEDICATIONS VERSUS ORAL. PT DENIES N/V. PT VOIDING W/O DIFFICULTY. PT HAS APPEARED TO REST WELL THROUGHOUT THE SHIFT. CALL LIGHT IS WITHIN REACH.
--- NOTE | 2021-06-04 16:16 | NUR ---
Pt presented sitting in his wheel chair and once introductions were made immediatly began to talk about his life and trials. Pt revealed was a to two wives and lost 4 children to suicide. 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 Pt shared he was unsure how he would go on and also said, "I have tried to kill myself in the past and I'm unsure how i will make it through this" (referring to the loss of a limb.) Pt then went on to say he has a strong rehana now but does not know how navigate this new life without a limb. Pt asked for prayer at this time and then asked to be wheeled to his room to rest because he said he felt very tired. The visit ended.
--- NOTE | 2021-06-04 18:07 | NUR ---
UP ON W/C X2 TODAY, TOLERATED WELL, PAIN APPEARS TO BE TOLERABLE, RLE STUMP DSG CHANGED AFTER SHOWER TODAY, CONT. TO HAVE SOME REDNESS AROUND SONIDO, NO DRAINAGE NOTED, NO ACUTE CHANGES THIS SHIFT.
[2021-06-05] MEDS ORDERED: ACET325 PO (14:37)
[2021-06-05] MEDS ORDERED: NAPR500 PO (14:38)
[2021-06-05] MEDS ORDERED: LISI20 PO (14:38)
--- NOTE | 2021-06-05 17:58 | NUR ---
DISCHARGE SUMMARY PT A&OX4, VSS/RA, ROBERTO PO, VOIDING WELL, SHOWERED TODAY, LEFT FLOOR VIA HIS OWN WC WITH TRANSPORT, WITH DISCHARGE PACKET AND DRESSING CHANGES, TO GO TO PHARMACY AND THEN HOTEL; CAIO IS AWARE AND WILL MEET CRISTINO AT PHARMACY. PT WAS INSTRUCTED TO MAKE CONTACT WITH ORTHO SURGEON AND PCP SO THEY WOULD HAVE HIS CONTACT INFORMATION. DC INSTRUCTIONS: NO TUB/POOL, FU WITH ORTHO SURGEON FOR STAPLE REMOVAL, FU WITH PCP. IV DC'D.
[2021-06-12] MEDS ORDERED: CYCL10 PO (18:08)
[2021-06-12] MEDS ORDERED: LIDO700A20 TOP (18:08)
== END 2021-06-05 17:30 | disposition home health service (06) | DRG 475 ==
LOC: ER 15:54 → SURS 22:44
PROVIDERS: Family Medicine; Internal Medicine; Orthopaedic Surgery; Pharmacist; Physician Assistant; ADMIT Internal Medicine
PROC: 0Y6H0Z1 Detachment at Right Lower Leg, High, Open Approach (ICD-10-PCS; principal; 2021-05-27 14:00)
DX: M86.171 Other acute osteomyelitis, right ankle and foot (principal); L03.114 Cellulitis of left upper limb; Z66 Do not resuscitate; Z20.822 Contact with and (suspected) exposure to COVID-19; M70.22 Olecranon bursitis, left elbow; I25.10 Atherosclerotic heart disease of native coronary artery without angina pectoris; I10 Essential (primary) hypertension; G89.29 Other chronic pain; J43.9 Emphysema, unspecified; F15.10 Other stimulant abuse, uncomplicated; B18.2 Chronic viral hepatitis C; E10.42 Type 1 diabetes mellitus with diabetic polyneuropathy; N40.0 Benign prostatic hyperplasia without lower urinary tract symptoms; F31.9 Bipolar disorder, unspecified; F17.210 Nicotine dependence, cigarettes, uncomplicated; Z59.00 Homelessness unspecified; Z79.84 Long term (current) use of oral hypoglycemic drugs; Z79.899 Other long term (current) drug therapy; Z88.0 Allergy status to penicillin; Z89.431 Acquired absence of right foot; Z91.041 Radiographic dye allergy status; Z95.5 Presence of coronary angioplasty implant and graft; Z98.890 Other specified postprocedural states; Z86.14 Personal history of Methicillin resistant Staphylococcus aureus infection
CPT/HCPCS: 36415; 71045; 73130; 73630; 80053; 80069; 80202; 81001; 82565; 82947; 83605; 85014; 85018; 85025; 85027; 85651; 86140; 87040; 87070; 87075; 87205; 88307; 88311; 93005; 93010; 94640; 94644; 94664; 94760; 96365; 96367; 96375; 97110; 97116; 97162; 97166; 97530; 97535; 99285-25; A9270; J0696; J1100; J1644; J1650; J1815; J1885; J2250; J2270; J2370; J2405; J2550; J2704; J2795; J3010; J3370; J7030; U0004

== ENCOUNTER 2021-09-24 10:19 | Emergency (ER) | payer MEDICARE, OTHER ==
[~2021-09-24] VITALS: Ht 177.8 cm; Wt 68.0 kg
[~2021-09-24 10:19] MED LIST changes: +CYCL10 PO; +LIDO700A20 TOP; +LISI20 PO; +NAPR500 PO
[2021-09-24 10:47] LABS: BASOPHILS ABSOLUTE AUTO 0.02 K/mm3 (0.00-0.23); BASOPHILS PERCENT AUTO 0 % (0-2); EOSINOPHILS ABSOLUTE AUTO 0.02 K/mm3 (0.00-0.68); EOSINOPHILS PERCENT AUTO 0 % (0-6); Hematocrit 39.1 % (37.0-53.0); Hemoglobin 13.5 g/dL (13.5-17.5); IMMATURE GRAN ABSOLUTE AUTO 0.03 K/mm3 (0.00-0.10); IMMATURE GRAN PERCENT AUTO 1 % (0-1); LYMPHOCYTES ABSOLUTE AUTO 0.87 K/mm3 (0.84-5.20); LYMPHOCYTES PERCENT AUTO 16 % (21-46); MONOCYTES ABSOLUTE AUTO 0.65 K/mm3 (0.16-1.47); MONOCYTES PERCENT AUTO 12 % (4-13); Mean Corpuscular HGB 28.1 pg (26.0-34.0); Mean Corpuscular HGB Conc 34.5 g/dL (31.5-36.5); Mean Corpuscular Volume 81 fL (80-100); Mean Platelet Volume 9.9 fL (9.1-12.4); NEUTROPHILS ABSOLUTE AUTO 3.87 K/mm3 (1.96-9.15); NEUTROPHILS PERCENT AUTO 71 % (41-73); Platelet Count 127 K/mm3 (150-400); RDW Coefficient Variation 13.5 % (11.7-14.2); Red Blood Cell Count 4.81 M/mm3 (4.30-5.90); White Blood Cell Count 5.46 K/mm3 (4.00-11.30)
[2021-09-24 11:02] LABS: Alanine Aminotransfer (ALT/SGP 43 U/L (12-78); Albumin/Globulin Ratio 0.7 (0.8-1.8); Alk Phos 94 U/L (50-136); Anion Gap 6 mmol/L (6-16); Aspartate Aminotrans (AST/SGOT 33 U/L (12-37); Bilirubin, Total 0.5 mg/dL (0.1-1.0); Blood Urea Nitrogen 11 mg/dL (8-24); Bun/Creatinine Ratio 13.8 (12.0-20.0); CO2, Blood 27 mmol/L (21-32); Calcium, Blood 8.4 mg/dL (8.5-10.1); Chloride, Blood 100 mmol/L (98-108); Globulin, Blood 4.2 g/dL (2.2-4.0); Glomerular Filtration Rate >60 (60-); Glucose, Blood 318 mg/dL (70-99); Potassium, Blood 4.1 mmol/L (3.5-5.5); Sodium, Blood 133 mmol/L (136-145); Total Protein, Blood 7.2 g/dL (6.4-8.2)
== END 2021-09-24 12:20 | disposition home or self-care (01) ==
LOC: ER 10:19
PROVIDERS: Emergency Medicine
DX: J20.9 Acute bronchitis, unspecified (principal); J43.9 Emphysema, unspecified; E11.40 Type 2 diabetes mellitus with diabetic neuropathy, unspecified; I10 Essential (primary) hypertension; I25.10 Atherosclerotic heart disease of native coronary artery without angina pectoris; F17.210 Nicotine dependence, cigarettes, uncomplicated; Z20.822 Contact with and (suspected) exposure to COVID-19; Z91.041 Radiographic dye allergy status; Z88.0 Allergy status to penicillin; Z79.899 Other long term (current) drug therapy; Z79.84 Long term (current) use of oral hypoglycemic drugs
CPT/HCPCS: 71045; 80053; 82947; 85025; 93005; 93010; 94640; 99285-25

== ENCOUNTER 2021-11-07 13:30 | Emergency (ER) | payer MEDICARE, OTHER ==
[~2021-11-07] VITALS: Ht 177.8 cm; Wt 72.6 kg
[2021-11-07 14:34] LABS: BASOPHILS ABSOLUTE AUTO 0.05 K/mm3 (0.00-0.23); BASOPHILS PERCENT AUTO 1 % (0-2); EOSINOPHILS ABSOLUTE AUTO 0.24 K/mm3 (0.00-0.68); EOSINOPHILS PERCENT AUTO 3 % (0-6); Hematocrit 39.3 % (37.0-53.0); Hemoglobin 13.8 g/dL (13.5-17.5); IMMATURE GRAN ABSOLUTE AUTO 0.03 K/mm3 (0.00-0.10); IMMATURE GRAN PERCENT AUTO 0 % (0-1); LYMPHOCYTES ABSOLUTE AUTO 1.25 K/mm3 (0.84-5.20); LYMPHOCYTES PERCENT AUTO 16 % (21-46); MONOCYTES ABSOLUTE AUTO 0.62 K/mm3 (0.16-1.47); MONOCYTES PERCENT AUTO 8 % (4-13); Mean Corpuscular HGB 28.5 pg (26.0-34.0); Mean Corpuscular HGB Conc 35.1 g/dL (31.5-36.5); Mean Corpuscular Volume 81 fL (80-100); Mean Platelet Volume 10.3 fL (9.1-12.4); NEUTROPHILS PERCENT AUTO 73 % (41-73); Platelet Count 202 K/mm3 (150-400); RDW Coefficient Variation 13.8 % (11.7-14.2); RDW Standard Deviation 40.7 fL (35.1-46.3); Red Blood Cell Count 4.84 M/mm3 (4.30-5.90); White Blood Cell Count 8.09 K/mm3 (4.00-11.30)
[2021-11-07 14:52] LABS: Alanine Aminotransfer (ALT/SGP 29 U/L (12-78); Albumin/Globulin Ratio 0.7 (0.8-1.8); Alk Phos 123 U/L (50-136); Anion Gap 7 mmol/L (6-16); Aspartate Aminotrans (AST/SGOT 16 U/L (12-37); Bilirubin, Total 0.6 mg/dL (0.1-1.0); Blood Urea Nitrogen 14 mg/dL (8-24); Bun/Creatinine Ratio 17.8 (12.0-20.0); CO2, Blood 28 mmol/L (21-32); Calcium, Blood 9.1 mg/dL (8.5-10.1); Chloride, Blood 95 mmol/L (98-108); Creatinine, Blood 0.79 mg/dL (0.60-1.20); Globulin, Blood 4.6 g/dL (2.2-4.0); Glomerular Filtration Rate >60 (60-); Potassium, Blood 4.4 mmol/L (3.5-5.5); Sodium, Blood 130 mmol/L (136-145); Total Protein, Blood 7.6 g/dL (6.4-8.2)
[2021-11-07 14:53] LABS: Glucose, Blood 603 mg/dL (70-99)
[2021-11-07 15:33] LABS: Influenza A, PCR NEGATIVE (NEGATIVE); Influenza B, PCR NEGATIVE (NEGATIVE); Resp Syncytial Virus, PCR NEGATIVE (NEGATIVE); SARS-Cov-2 (COVID-19) PCR, MMC NEGATIVE (NEGATIVE)
[2021-11-07] MEDS ORDERED: CEPH500 PO (16:28)
[2021-11-07] MEDS ORDERED: GLIP2.5ER PO (16:28)
[2021-11-07] MEDS ORDERED: ADVAIR HFA 230-28 GM INH (16:28)
[2021-11-07] MEDS ORDERED: ALBU90OI INH (16:28)
== END 2021-11-07 17:04 | disposition home or self-care (01) ==
LOC: ER 13:30
PROVIDERS: Emergency Medicine
DX: J44.9 Chronic obstructive pulmonary disease, unspecified (principal); L03.811 Cellulitis of head [any part, except face]; L03.114 Cellulitis of left upper limb; L03.113 Cellulitis of right upper limb; E11.40 Type 2 diabetes mellitus with diabetic neuropathy, unspecified; I10 Essential (primary) hypertension; F17.210 Nicotine dependence, cigarettes, uncomplicated; Z88.0 Allergy status to penicillin; Z20.822 Contact with and (suspected) exposure to COVID-19
CPT/HCPCS: 0241U; 71045; 80053; 85025; 94640; A9270; J1815; J7030; J7512

== ENCOUNTER 2021-11-13 18:12 | Emergency (ER) | payer MEDICARE, OTHER ==
[~2021-11-13] VITALS: Ht 177.8 cm; Wt 69.4 kg
[~2021-11-13 18:12] MED LIST changes: +ADVAIR HFA 230-28 GM INH; +CEPH500 PO; +GLIP2.5ER PO
[2021-11-13] MEDS ORDERED: Bactrim Ds Tab1 EACH PO (19:58)
[2021-11-13] MEDS ORDERED: CEPH500 PO (19:58)
== END 2021-11-13 20:39 | disposition home or self-care (01) ==
LOC: ER 18:12
DX: S61.002A Unspecified open wound of left thumb without damage to nail, initial encounter (principal); J43.9 Emphysema, unspecified; E11.9 Type 2 diabetes mellitus without complications; I10 Essential (primary) hypertension; Z88.0 Allergy status to penicillin; Z91.041 Radiographic dye allergy status; Z79.899 Other long term (current) drug therapy; W23.0XXA Caught, crushed, jammed, or pinched between moving objects, initial encounter
CPT/HCPCS: 73140; 96374; 99283-25; A9270; J1885

== ENCOUNTER 2021-11-14 04:43 | Day surgery (SDC) | payer MEDICARE, OTHER ==
[~2021-11-14 04:43] MED LIST changes: +Bactrim Ds Tab1 EACH PO
== END 2021-11-14 23:59 | disposition home or self-care (01) ==
LOC: WOUND 04:43
DX: E11.621 Type 2 diabetes mellitus with foot ulcer (principal); L97.522 Non-pressure chronic ulcer of other part of left foot with fat layer exposed; T87.89 Other complications of amputation stump; S61.002A Unspecified open wound of left thumb without damage to nail, initial encounter; Z88.0 Allergy status to penicillin; F17.200 Nicotine dependence, unspecified, uncomplicated; Z91.041 Radiographic dye allergy status; J43.9 Emphysema, unspecified; I25.10 Atherosclerotic heart disease of native coronary artery without angina pectoris; I10 Essential (primary) hypertension; I25.2 Old myocardial infarction; Z86.19 Personal history of other infectious and parasitic diseases; M19.90 Unspecified osteoarthritis, unspecified site; E11.40 Type 2 diabetes mellitus with diabetic neuropathy, unspecified
CPT/HCPCS: A9270; G0463

== ENCOUNTER 2021-11-24 11:43 | Emergency (ER) | payer MEDICARE, OTHER ==
[~2021-11-24] VITALS: Ht 165.1 cm; Wt 59.0 kg
--- NOTE | 2021-11-24 12:26 | NUR ---
Latoya @ [facility] says it is ok for patient to return. Call her if any questions - [facility], .
[2021-11-24 13:28] LABS: Base Excess Venous 2.6 mmol/L; Bicarbonate Venous 26.2 mmol/L (24.0-30.0); PCO2 Venous 45.6 mmHg (38-42); PO2 Venous 164 mmHg (38-42); pH Blood Venous 7.39 (7.34-7.37)
[2021-11-24 13:31] LABS: Anion Gap 6 mmol/L (6-16); Blood Urea Nitrogen 17 mg/dL (8-24); CO2, Blood 27 mmol/L (21-32); Calcium, Blood 9.3 mg/dL (8.5-10.1); Chloride, Blood 95 mmol/L (98-108); Glomerular Filtration Rate >60 (60-); Glucose, Blood 477 mg/dL (70-99); Potassium, Blood 5.3 mmol/L (3.5-5.5); Sodium, Blood 128 mmol/L (136-145)
[2021-11-24 16:01] LABS: Anion Gap 4 mmol/L (6-16); Blood Urea Nitrogen 16 mg/dL (8-24); Bun/Creatinine Ratio 19.8 (12.0-20.0); CO2, Blood 26 mmol/L (21-32); Calcium, Blood 8.6 mg/dL (8.5-10.1); Chloride, Blood 103 mmol/L (98-108); Creatinine, Blood 0.81 mg/dL (0.60-1.20); Glomerular Filtration Rate >60 (60-); Glucose, Blood 439 mg/dL (70-99); Potassium, Blood 4.8 mmol/L (3.5-5.5); Sodium, Blood 133 mmol/L (136-145)
[2021-11-24] MEDS ORDERED: LEVE500 PO (16:55)
[2021-11-24] MEDS ORDERED: GLIP2.5ER PO (17:11)
[2021-11-24] MEDS ORDERED: ONDA4ODT MM (17:11)
[2021-11-24] MEDS ORDERED: GABA100 PO (17:11)
[2021-11-24] MEDS ORDERED: ALBU90OI INH (17:11)
[2021-11-24] MEDS ORDERED: Seroquel Xr50 MG PO (17:11)
[2021-11-24] MEDS ORDERED: LISI20 PO (17:11)
[2021-11-24] MEDS ORDERED: ADVAIR HFA 230-28 GM INH (17:11)
[2021-11-25] MEDS ORDERED: LEVE500 PO (12:16)
[2021-11-25] MEDS ORDERED: GLIP2.5ER PO (12:19)
== END 2021-11-24 17:31 | disposition home or self-care (01) ==
LOC: ER 11:43
PROVIDERS: Student in an Organized Health Care Education/Training Program
DX: R56.9 Unspecified convulsions (principal); Z76.0 Encounter for issue of repeat prescription; E11.65 Type 2 diabetes mellitus with hyperglycemia; E87.1 Hypo-osmolality and hyponatremia; J43.9 Emphysema, unspecified; E11.40 Type 2 diabetes mellitus with diabetic neuropathy, unspecified; F17.210 Nicotine dependence, cigarettes, uncomplicated; Z79.899 Other long term (current) drug therapy; Z88.0 Allergy status to penicillin
CPT/HCPCS: 80048; 82010; 82803; 82947; 96365; 99284-25; J1953; J7030

== ENCOUNTER 2021-11-25 11:34 | Emergency (ER) | payer MEDICARE, OTHER ==
[~2021-11-25] VITALS: Ht 172.7 cm; Wt 68.0 kg
[2021-11-25] MEDS ORDERED: LEVE500 PO (12:16)
[2021-11-25] MEDS ORDERED: GLIP2.5ER PO (12:19)
== END 2021-11-25 12:55 | disposition home or self-care (01) ==
LOC: ER 11:34
DX: R56.9 Unspecified convulsions (principal); R05.9 Cough, unspecified; J44.9 Chronic obstructive pulmonary disease, unspecified; Z91.14 Patient's other noncompliance with medication regimen; E11.40 Type 2 diabetes mellitus with diabetic neuropathy, unspecified; I10 Essential (primary) hypertension; I25.10 Atherosclerotic heart disease of native coronary artery without angina pectoris; F17.210 Nicotine dependence, cigarettes, uncomplicated; Z88.0 Allergy status to penicillin; Z91.041 Radiographic dye allergy status; Z79.899 Other long term (current) drug therapy
CPT/HCPCS: 36415; 93005; 93010; 99284-25; A9270

== ENCOUNTER 2021-12-13 18:16 | Emergency (ER) | payer MEDICARE, OTHER ==
[~2021-12-13] VITALS: Ht 177.8 cm; Wt 68.0 kg
[2021-12-13 18:42] LABS: BASOPHILS ABSOLUTE AUTO 0.06 K/mm3 (0.00-0.23); BASOPHILS PERCENT AUTO 1 % (0-2); EOSINOPHILS PERCENT AUTO 4 % (0-6); Hematocrit 33.2 % (37.0-53.0); Hemoglobin 10.9 g/dL (13.5-17.5); IMMATURE GRAN ABSOLUTE AUTO 0.09 K/mm3 (0.00-0.10); IMMATURE GRAN PERCENT AUTO 1 % (0-1); LYMPHOCYTES ABSOLUTE AUTO 1.37 K/mm3 (0.84-5.20); LYMPHOCYTES PERCENT AUTO 18 % (21-46); MONOCYTES ABSOLUTE AUTO 0.74 K/mm3 (0.16-1.47); MONOCYTES PERCENT AUTO 10 % (4-13); Mean Corpuscular HGB 29.4 pg (26.0-34.0); Mean Corpuscular HGB Conc 32.8 g/dL (31.5-36.5); Mean Corpuscular Volume 90 fL (80-100); Mean Platelet Volume 9.3 fL (9.1-12.4); NEUTROPHILS ABSOLUTE AUTO 5.15 K/mm3 (1.96-9.15); NEUTROPHILS PERCENT AUTO 67 % (41-73); Platelet Count 214 K/mm3 (150-400); RDW Coefficient Variation 14.4 % (11.7-14.2); Red Blood Cell Count 3.71 M/mm3 (4.30-5.90); White Blood Cell Count 7.71 K/mm3 (4.00-11.30)
[2021-12-13 18:57] LABS: Alanine Aminotransfer (ALT/SGP 39 U/L (12-78); Albumin, Blood 2.8 g/dL (3.4-5.0); Albumin/Globulin Ratio 0.6 (0.8-1.8); Alk Phos 97 U/L (50-136); Anion Gap 1 mmol/L (6-16); Aspartate Aminotrans (AST/SGOT 29 U/L (12-37); Bilirubin, Total 0.3 mg/dL (0.1-1.0); Blood Urea Nitrogen 24 mg/dL (8-24); Bun/Creatinine Ratio 24.2 (12.0-20.0); CO2, Blood 29 mmol/L (21-32); Calcium, Blood 8.9 mg/dL (8.5-10.1); Chloride, Blood 110 mmol/L (98-108); Creatinine, Blood 0.99 mg/dL (0.60-1.20); Glomerular Filtration Rate >60 (60-); Glucose, Blood 173 mg/dL (70-99); Potassium, Blood 4.4 mmol/L (3.5-5.5); Sodium, Blood 140 mmol/L (136-145); Total Protein, Blood 7.8 g/dL (6.4-8.2)
== END 2021-12-13 20:44 | disposition home or self-care (01) ==
LOC: ER 18:16
PROVIDERS: Emergency Medicine
DX: G40.409 Other generalized epilepsy and epileptic syndromes, not intractable, without status epilepticus (principal); J43.9 Emphysema, unspecified; E11.40 Type 2 diabetes mellitus with diabetic neuropathy, unspecified; I10 Essential (primary) hypertension
CPT/HCPCS: 36415; 80053; 82947; 84146; 85025; 93005; 93010; 99284-25

== ENCOUNTER 2021-12-20 15:41 | Emergency (ER) | payer MEDICARE, OTHER ==
[~2021-12-20] VITALS: Ht 177.8 cm; Wt 124.7 kg
[2021-12-20 16:30] LABS: BASOPHILS ABSOLUTE AUTO 0.05 K/mm3 (0.00-0.23); BASOPHILS PERCENT AUTO 1 % (0-2); EOSINOPHILS ABSOLUTE AUTO 0.27 K/mm3 (0.00-0.68); EOSINOPHILS PERCENT AUTO 4 % (0-6); Hematocrit 31.6 % (37.0-53.0); Hemoglobin 10.2 g/dL (13.5-17.5); IMMATURE GRAN ABSOLUTE AUTO 0.04 K/mm3 (0.00-0.10); IMMATURE GRAN PERCENT AUTO 1 % (0-1); LYMPHOCYTES ABSOLUTE AUTO 0.95 K/mm3 (0.84-5.20); LYMPHOCYTES PERCENT AUTO 13 % (21-46); MONOCYTES ABSOLUTE AUTO 0.61 K/mm3 (0.16-1.47); MONOCYTES PERCENT AUTO 8 % (4-13); Mean Corpuscular HGB 28.8 pg (26.0-34.0); Mean Corpuscular HGB Conc 32.3 g/dL (31.5-36.5); Mean Corpuscular Volume 89 fL (80-100); Mean Platelet Volume 9.4 fL (9.1-12.4); NEUTROPHILS ABSOLUTE AUTO 5.43 K/mm3 (1.96-9.15); NEUTROPHILS PERCENT AUTO 74 % (41-73); Platelet Count 200 K/mm3 (150-400); RDW Coefficient Variation 14.9 % (11.7-14.2); RDW Standard Deviation 48.9 fL (35.1-46.3); Red Blood Cell Count 3.54 M/mm3 (4.30-5.90); White Blood Cell Count 7.35 K/mm3 (4.00-11.30)
[2021-12-20 16:45] LABS: Magnesium, Blood 2.7 mg/dL (1.6-2.4)
[2021-12-20 16:47] LABS: Alanine Aminotransfer (ALT/SGP 43 U/L (12-78); Albumin, Blood 2.8 g/dL (3.4-5.0); Albumin/Globulin Ratio 0.6 (0.8-1.8); Alk Phos 90 U/L (50-136); Anion Gap 3 mmol/L (6-16); Aspartate Aminotrans (AST/SGOT 34 U/L (12-37); Bilirubin, Total 0.3 mg/dL (0.1-1.0); Blood Urea Nitrogen 26 mg/dL (8-24); CO2, Blood 28 mmol/L (21-32); Calcium, Blood 8.9 mg/dL (8.5-10.1); Chloride, Blood 107 mmol/L (98-108); Globulin, Blood 4.7 g/dL (2.2-4.0); Glomerular Filtration Rate >60 (60-); Glucose, Blood 132 mg/dL (70-99); Phosphorus, Blood 4.4 mg/dL (2.5-4.9); Potassium, Blood 4.7 mmol/L (3.5-5.5); Sodium, Blood 138 mmol/L (136-145); Total Protein, Blood 7.5 g/dL (6.4-8.2)
== END 2021-12-20 19:00 | disposition home or self-care (01) ==
LOC: ER 15:41
PROVIDERS: Physician Assistant
DX: G40.909 Epilepsy, unspecified, not intractable, without status epilepticus (principal); E11.40 Type 2 diabetes mellitus with diabetic neuropathy, unspecified; I10 Essential (primary) hypertension; J43.9 Emphysema, unspecified; Z79.899 Other long term (current) drug therapy; Z88.0 Allergy status to penicillin
CPT/HCPCS: 70450; 80053; 83735; 84100; 85025; 93005; 93010; 96374; 96375; 99284-25; J1885; J1953